=== PATIENT | female | born 1985 | race African-American/Black ===

== ENCOUNTER 2017-04-15 12:35 | Emergency (ER) | payer OTHER ==
[2017-04-15] MEDS ORDERED: LABETALOL 20 MG/4 ML DISP.SYRIN. IVP ONE (13:00)
[2017-04-15] MEDS ORDERED: HALOPERIDOL LACT 5 MG/ML VIAL. IM ONE (13:00)
[2017-04-15 13:20] LABS: BASO # 0.1 x10^3/uL (0.0-0.2); BASO % 1 % (0-3); EOS # 0.1 x10^3/uL (0.0-0.7); EOS % 0 % (0-3); HEMATOCRIT 20.8 % (36.0-47.0); LYMPH # 1.4 x10^3/uL (1.0-4.8); LYMPH % 10 % (24-48); MEAN CORPUSCULAR HEMOGLOBIN 32 pg (25-35); MEAN CORPUSCULAR HGB CONC 33 g/dL (31-37); MEAN CORPUSCULAR VOLUME 96 fL (79-100); MONO # 0.3 x10^3/uL (0.0-1.1); MONO % 2 % (0-9); NEUT % 87 % (31-73); PLATELET COUNT 239 x10^3/uL (140-400); RED BLOOD COUNT 2.17 x10^6/uL (3.50-5.40); RED CELL DISTRIBUTION WIDTH 14.6 % (11.5-14.5); WHITE BLOOD COUNT 13.8 x10^3/uL (4.0-11.0)
[2017-04-15 13:31] LABS: HEMOGLOBIN 6.8 g/dL (12.0-15.5)
[2017-04-15 13:42] LABS: ALBUMIN 2.7 g/dL (3.4-5.0); ALBUMIN/GLOBULIN RATIO 0.7 (1.0-1.7); CALCIUM 8.4 mg/dL (8.5-10.1); CREATININE 4.3 mg/dL (0.6-1.0); GFR 14.7; TOTAL BILIRUBIN 0.4 mg/dL (0.2-1.0); TOTAL PROTEIN 6.6 g/dL (6.4-8.2)
[2017-04-15 13:47] LABS: POTASSIUM 5.3 mmol/L (3.5-5.1)
[2017-04-15] MEDS ORDERED: hydrALAZINE 20 MG/ML VIAL. IV ONE (14:45)
--- NOTE | 2017-04-15 15:41 | PHYS DOC ---
Adult General Chief Complaint Chief Complaint: abdominal pain, vomiting HPI HPI Patient is a 31-year-old female with type 1 diabetes who presents by EMS from home with the complaint of abdominal pain and vomiting. Patient has a history of gastroparesis and states "it's my gastroparesis". Patient states she recently delivered a baby on 04/02 at [facility]. She had preeclampsia. She was released from the hospital about a week ago, her baby is still in the hospital. She is not pumping breast milk. Patient states she woke up this morning about 6 AM with abdominal pain and vomiting. She believes it is her gastroparesis. She does sometimes have flareups of gastroparesis just like this. She denies hematemesis. Patient has been taking insulin as prescribed. She has blood pressure medicine and took it but may have vomited it. She denies headache, complains of abdominal pain. Patient states that her swelling of her feet has been present since before she delivered her baby. PCP and specialists are at [facility]. Review of Systems Review of Systems Review of systems not able to be obtained because the patient is too uncomfortable to answer questions and her critical condition Current Medications Current Medications Current Medications Medications (Trade) Dose Ordered Sig/Rick Start Time Stop Time Status Last Admin Dose Admin Fentanyl Citrate (Fentanyl 2ml Vial) 100 mcg 1X ONCE 04/15/17 13:00 04/15/17 13:01 DC 04/15/17 13:12 100 MCG Haloperidol Lactate (Haldol) 2.5 mg 1X ONCE 04/15/17 13:00 04/15/17 13:01 DC 04/15/17 13:15 2.5 MG Hydralazine HCl (Apresoline) 10 mg 1X ONCE 04/15/17 14:45 04/15/17 14:46 DC 04/15/17 15:01 10 MG Labetalol HCl (Normodyne) 20 mg 1X ONCE 04/15/17 13:00 04/15/17 13:01 DC 04/15/17 13:17 20 MG Lorazepam (Ativan) 2 mg 1X ONCE 04/15/17 15:45 04/15/17 15:46 04/15/17 15:39 2 MG Magnesium Sulfate 50 ml @ 25 mls/hr 1X ONCE 04/15/17 15:45 04/15/17 17:44 04/15/17 15:39 25 MLS/HR Nicardipine HCl 50 mg/Sodium Chloride 270 ml @ 0 mls/hr CONT PRN 04/15/17 15:30 Allergies Allergies Allergies Coded Allergies Type Severity Reaction Last Updated Verified ketorolac Allergy Mild 04/15/17 Yes morphine Allergy Mild Unknown 04/15/17 Yes ondansetron Allergy Mild Unknown 04/15/17 Yes Physical Exam Physical Exam Constitutional: Obese female, having dry heaves, crying, moaning, holding her abdomen. Alert, answers questions briefly but appropriately. Blood pressure markedly elevated. HENT: Normocephalic, atraumatic, bilateral external ears normal, nose normal. [ ] Eyes: conjunctiva normal, no discharge. [] Neck: Normal range of motion, no stridor. [] Cardiovascular:Heart rate regular rhythm, no murmur [] Lungs & Thorax: Bilateral breath sounds clear to auscultation [] Abdomen: Obese, tender to palpation generalized, no focal tenderness, no rebound or guarding. Skin: Warm, dry, no erythema, no rash. [] Extremities: No tenderness, no cyanosis, no clubbing, ROM intact, puffy edema of both feet 2 plus Neurologic: Alert and oriented X 3, normal motor function, no focal deficits noted. [] Current Patient Data Vital Signs Vital Signs Date Time Temp Pulse Resp B/P (MAP) Pulse Ox O2 Delivery O2 Flow Rate FiO2 04/15/17 15:35 20 96 04/15/17 15:01 94 210/130 04/15/17 15:00 Room Air Lab Results Laboratory Tests Test 04/15/17 13:07 White Blood Count 13.8 x10^3/uL (4.0-11.0) H Red Blood Count 2.17 x10^6/uL (3.50-5.40) L Hemoglobin 6.8 g/dL (12.0-15.5) *L Hematocrit 20.8 % (36.0-47.0) L Mean Corpuscular Volume 96 fL (79-100) Mean Corpuscular Hemoglobin 32 pg (25-35) Mean Corpuscular Hemoglobin Concent 33 g/dL (31-37) Red Cell Distribution Width 14.6 % (11.5-14.5) H Platelet Count 239 x10^3/uL (140-400) Neutrophils (%) (Auto) 87 % (31-73) H Lymphocytes (%) (Auto) 10 % (24-48) L Monocytes (%) (Auto) 2 % (0-9) Eosinophils (%) (Auto) 0 % (0-3) Basophils (%) (Auto) 1 % (0-3) Neutrophils # (Auto) 12.0 x10^3uL (1.8-7.7) H Lymphocytes # (Auto) 1.4 x10^3/uL (1.0-4.8) Monocytes # (Auto) 0.3 x10^3/uL (0.0-1.1) Eosinophils # (Auto) 0.1 x10^3/uL (0.0-0.7) Basophils # (Auto) 0.1 x10^3/uL (0.0-0.2) Prothrombin Time 11.0 SEC (9.4-11.4) Prothrombin Time INR 1.1 (0.9-1.1) PTT 24 SEC (23-33) Sodium Level 142 mmol/L (136-145) Potassium Level 5.3 mmol/L (3.5-5.1) H Chloride Level 109 mmol/L (98-107) H Carbon Dioxide Level 18 mmol/L (21-32) L Anion Gap 15 (6-14) H Blood Urea Nitrogen 34 mg/dL (7-20) H Creatinine 4.3 mg/dL (0.6-1.0) H Estimated GFR (Cockcroft-Gault) 14.7 BUN/Creatinine Ratio 8 (6-20) Glucose Level 241 mg/dL (70-99) H Calcium Level 8.4 mg/dL (8.5-10.1) L Total Bilirubin 0.4 mg/dL (0.2-1.0) Aspartate Amino Transferase (AST) 42 U/L (15-37) H Alanine Aminotransferase (ALT) 27 U/L (14-59) Alkaline Phosphatase 111 U/L (46-116) Total Protein 6.6 g/dL (6.4-8.2) Albumin 2.7 g/dL (3.4-5.0) L Albumin/Globulin Ratio 0.7 (1.0-1.7) L Lipase 507 U/L (73-393) H EKG EKG [] Radiology/Procedures Radiology/Procedures [] Course & Med Decision Making Course & Med Decision Making Pertinent Labs and Imaging studies reviewed. (See chart for details) 31-year-old female, diabetes, with history of gastroparesis, presents with the complaint of acute onset of abdominal pain and vomiting this morning, states "it 's my gastroparesis", however patient gives a history of recently having preeclampsia prior to delivering her baby on 04/02. I'm concerned that she might continue to be preeclamptic with the symptom complex that she is presenting with. Her blood pressure is markedly elevated. Patient states her blood pressure was high before. Still, I am concerned about the possibility of preeclampsia. Labs present multiple abnormalities, see lab results. The patient was treated with IV pain and nausea medications as well as IV antihypertensives. IV labetalol, IV hydralazine, did not really make a dent in her blood pressure. I started an IV magnesium bolus of 2 g. The patient continued to cry and complain of abdominal pain, she seemed anxious and she was given a dose of IV Ativan 1 mg and she immediately fell asleep. Because the patient was hospitalized at for preeclampsia and her recent delivery, I called [facility] to discuss transfer. She was accepted for transfer. 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 Perea. EMS was called, transfer paperwork was completed. In the meantime, as the magnesium bolus was finishing, the patient was not getting much improvement in her blood pressure and a Nicardipine infusion was started. When EMS arrived, patient was sleeping shortly after Ativan administration. I woke the patient up and she woke up, made eye contact, she is nonfocal. She moved over from the ED cart onto the EMS cart with minimal assistance. She continues to complain of abdominal pain but appears much more comfortable than she did prior to Ativan. Patient's magnesium had finished and nicardipine infusion is ongoing during the patient's EMS transport. Although the patient was noted to be anemic, I did not believe this is an acute finding and will defer possible blood transfusion to . Critical care time 120 minutes including bedside evaluation and reevaluation, evaluation and treatment of preeclampsia with markedly elevated blood pressure, ordering multiple IV medications, interpreting labs with multiple lab abnormalities, documentation, writing orders, several phone calls with [facility] transfer, discussion with [facility] transfer triage nurse, transfer paperwork. [] Dragon Disclaimer Dragon Disclaimer This electronic medical record was generated, in whole or in part, using a voice recognition dictation system. Departure Departure: Impression: Primary Impression: Pre-eclampsia in period Additional Impressions: Elevated blood pressure reading Anemia Abdominal pain Vomiting Disposition: 02 XFER SHT-TRM HOSP Condition: GUARDED Referrals: NON,STAFF (PCP) Problem Qualifiers CHRIS PINZON MD Apr 15, 2017 15:41
[2017-04-15] MEDS ORDERED: MAGNESIUM SULFATE 2GM 50 ML IV ONE (15:45)
[2017-04-15] MEDS ORDERED: LORazepam 2 MG/ML VIAL IV ONE (15:45)
[2017-04-15 16:20] VITALS: BP 201/114
== END 2017-04-15 16:23 | disposition short-term general hospital (02) ==
LOC: ER 12:35
DX: O14.95 Unspecified pre-eclampsia, complicating the puerperium (principal); O90.81 Anemia of the puerperium; R11.10 Vomiting, unspecified; R10.84 Generalized abdominal pain; E10.9 Type 1 diabetes mellitus without complications; Z88.5 Allergy status to narcotic agent; Z88.8 Allergy status to other drugs, medicaments and biological substances
CPT/HCPCS: 36415; 80053; 83690; 85025; 85610; 85730; 96365; 96368; 96372; 96375; 96376; 99291; 99292; J0360; J1630; J2060; J3010; J3475; J3490; J7050

== ENCOUNTER 2017-11-26 20:34 | Emergency (ER) | payer OTHER ==
[~2017-11-26] VITALS: Ht 175.3 cm; Wt 64.0 kg
--- NOTE | 2017-11-26 21:50 | ED.ADGEN ---
Past History Past Medical History: Diabetes, Renal Failure, Other Past Surgical History: Cholecystectomy, Tubal ligation Alcohol Use: None Drug Use: None Adult General Chief Complaint Chief Complaint ".. I got bad gastroparesis... and I usually go to [facility] for everything... but I am vomiting and got bad pain.. here in middle (umbilicus.).. and on Rt. lower..... I ve had my gallbladder out.. " " I have diabetes..." HPI HPI Patient is a 32 year old female who presents with above hx and complaints of abd. pain, N/V and DM. 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) Review of Systems Review of Systems Constitutional: Denies fever or chills [] Eyes: Denies change in visual acuity, redness, or eye pain [] HENT: Denies nasal congestion or sore throat [] Respiratory: Denies cough or shortness of breath [] Cardiovascular: No additional information not addressed in HPI [] GI: Generalized abdominal pain, nausea, vomiting, denies bloody stools or diarrhea [] : Denies dysuria or hematuria [] Musculoskeletal: Denies back pain or joint pain [] Integument: Denies rash or skin lesions [] Neurologic: Denies headache, focal weakness or sensory changes [] Endocrine: Denies polyuria or polydipsia [] All other systems were reviewed and found to be within normal limits, except as documented in this note. Family History Family History Noncontributory Current Medications Current Medications Current Medications Medications (Trade) Dose Ordered Sig/Rick Start Time Stop Time Status Last Admin Dose Admin Ceftriaxone Sodium (Rocephin Im) 1 gm 1X ONCE 11/27/17 01:15 11/27/17 01:16 DC 11/27/17 03:17 1 GM Clonidine HCl (Catapres Tts-1) 1 patch ONCE ONCE 11/27/17 06:00 11/27/17 06:01 DC Clonidine HCl (Catapres Tts-2) 1 patch 1X ONCE 11/27/17 06:30 11/27/17 06:31 DC Clonidine HCl (Catapres) 0.2 mg 1X ONCE 11/27/17 07:30 11/27/17 07:31 DC 11/27/17 07:15 0.2 MG Diphenhydramine HCl (Benadryl) 50 mg 1X ONCE 11/26/17 23:00 11/26/17 23:08 DC 11/26/17 23:21 50 MG Famotidine (Pepcid Vial) 20 mg 1X ONCE 11/26/17 23:00 11/26/17 23:08 DC 11/26/17 23:21 20 MG Fentanyl Citrate (Fentanyl 2ml Vial) 50 mcg 1X ONCE 11/27/17 03:30 11/27/17 04:15 DC Haloperidol Lactate (Haldol) 2 mg 1X ONCE 11/27/17 03:30 11/27/17 04:15 DC 11/27/17 06:33 2 MG Insulin Human Regular (NovoLIN R) 12 unit 1X ONCE 11/27/17 08:00 11/27/17 08:01 DC Iohexol (Omnipaque 240 Mg/ml) 30 ml 1X ONCE 11/26/17 22:15 11/26/17 22:16 DC 11/27/17 03:33 30 ML Iohexol (Omnipaque 300 Mg/ml) 75 ml 1X ONCE 11/26/17 22:15 11/26/17 22:16 DC Lorazepam (Ativan) 2 mg 1X ONCE 11/27/17 02:15 11/27/17 02:16 DC 11/27/17 03:10 2 MG Metronidazole 100 ml @ 100 mls/hr Q8HRS 11/27/17 06:00 11/27/17 06:19 100 MLS/HR Promethazine HCl (Phenergan Im) 25 mg 1X ONCE 11/26/17 23:15 11/26/17 23:18 DC 11/26/17 23:22 25 MG Sodium Chloride 1,000 ml @ 1,000 mls/hr 1X ONCE 11/27/17 07:00 11/27/17 08:00 DC 11/27/17 07:00 1,000 MLS/HR Allergies Allergies Allergies Coded Allergies Type Severity Reaction Last Updated Verified ketorolac Allergy Mild 04/15/17 Yes morphine Allergy Mild Unknown 04/15/17 Yes ondansetron Allergy Mild Unknown 04/15/17 Yes Physical Exam Physical Exam Constitutional: in acute distress, non-toxic appearance. []Active dry heaving. HENT: Normocephalic, atraumatic, bilateral external ears normal, oropharynx dry no oral exudates, nose normal. [] Eyes: PERRLA, EOMI, conjunctiva normal, no discharge. [] Neck: Normal range of motion, no tenderness, supple, no stridor. [] Cardiovascular: Tachycardia Heart rate regular rhythm, no murmur [] Lungs & Thorax: Bilateral breath sounds clear to auscultation [] Abdomen: Bowel sounds decreased, soft, generalized tenderness, rebound to right lower quadrant no masses, no pulsatile masses. Distended. Old surgery scar. Skin: Warm, dry, no erythema, no rash. [] Back: No tenderness, no CVA tenderness. [] Extremities: No tenderness, no cyanosis, no clubbing, ROM intact, no edema. [] Neurologic: Alert and oriented X 3, normal motor function, normal sensory function, no focal deficits noted. [] Psychologic: Affect anxious, judgement normal, mood normal. [] Current Patient Data Vital Signs Vital Signs Date Time Temp Pulse Resp B/P (MAP) Pulse Ox O2 Delivery O2 Flow Rate FiO2 11/27/17 07:15 93 220/129 11/27/17 06:25 18 98 Room Air 11/26/17 20:59 98.3 Lab Results Laboratory Tests Test 11/26/17 23:10 11/26/17 23:46 11/27/17 01:27 11/27/17 04:26 White Blood Count 12.0 x10^3/uL (4.0-11.0) H Red Blood Count 4.28 x10^6/uL (3.50-5.40) Hemoglobin 12.3 g/dL (12.0-15.5) Hematocrit 36.2 % (36.0-47.0) Mean Corpuscular Volume 85 fL (79-100) Mean Corpuscular Hemoglobin 29 pg (25-35) Mean Corpuscular Hemoglobin Concent 34 g/dL (31-37) Red Cell Distribution Width 12.8 % (11.5-14.5) Platelet Count 291 x10^3/uL (140-400) Neutrophils (%) (Auto) 71 % (31-73) Lymphocytes (%) (Auto) 22 % (24-48) L Monocytes (%) (Auto) 6 % (0-9) Eosinophils (%) (Auto) 1 % (0-3) Basophils (%) (Auto) 1 % (0-3) Neutrophils # (Auto) 8.5 x10^3uL (1.8-7.7) H Lymphocytes # (Auto) 2.6 x10^3/uL (1.0-4.8) Monocytes # (Auto) 0.8 x10^3/uL (0.0-1.1) Eosinophils # (Auto) 0.1 x10^3/uL (0.0-0.7) Basophils # (Auto) 0.1 x10^3/uL (0.0-0.2) Urine Collection Type Unknown Urine Color Yellow Urine Clarity Clear Urine pH 5.5 Urine Specific [place] 1.015 Urine Protein >100 mg/dl (NEG-TRACE) Urine Glucose (UA) >=1000 mg/dL (NEG) Urine Ketones (Stick) Trace mg/dL (NEG) Urine Blood Mod (NEG) Urine Nitrite Neg (NEG) Urine Bilirubin Neg (NEG) Urine Urobilinogen Dipstick 0.2 mg/dL (0.2 mg/dL) Urine Leukocyte Esterase Neg (NEG) Urine RBC 0 /HPF (0-2) Urine WBC Occ /HPF (0-4) Urine Squamous Epithelial Cells Occ /LPF Urine Bacteria 0 /HPF (0-FEW) Maternal Serum HCG Beta Subunit < 1 mIU/mL (0-6) Sodium Level 132 mmol/L (136-145) L Potassium Level 3.8 mmol/L (3.5-5.1) Chloride Level 97 mmol/L (98-107) L Carbon Dioxide Level 22 mmol/L (21-32) Anion Gap 13 (6-14) Blood Urea Nitrogen 20 mg/dL (7-20) Creatinine 2.9 mg/dL (0.6-1.0) H Estimated GFR (Cockcroft-Gault) 23.1 BUN/Creatinine Ratio 7 (6-20) Glucose Level 440 mg/dL (70-99) H Calcium Level 9.6 mg/dL (8.5-10.1) Total Bilirubin 0.4 mg/dL (0.2-1.0) Aspartate Amino Transferase (AST) 21 U/L (15-37) Alanine Aminotransferase (ALT) 15 U/L (14-59) Alkaline Phosphatase 158 U/L (46-116) H Troponin I Quantitative 0.038 ng/mL (0-0.055) Total Protein 8.1 g/dL (6.4-8.2) Albumin 3.3 g/dL (3.4-5.0) L Albumin/Globulin Ratio 0.7 (1.0-1.7) L Amylase Level 91 U/L (25-115) Lipase 301 U/L (73-393) POC Venous pH 7.32 (7.32-7.42) POC Venous pCO2 38 mmHg (41-51) L POC Venous pO2 37 mmHg (20-40) Venous Blood HCO3 19 mmol/L (24-28) L POC Venous O2 Saturation (Charu) 66 % POC FiO2 21 Lactic Acid Level 1.1 mmol/L (0.4-2.0) Test 11/27/17 05:19 11/27/17 07:18 Glucose (Fingerstick) 551 mg/dL (70-99) *H 593 mg/dL (70-99) *H EKG EKG [] Radiology/Procedures Radiology/Procedures My interpretation of chest x-ray shows no acute cardiopulmonary findings. No free air in the diaphragm. Adequate placement of central line left subclavian. No pneumothorax. CT of abdomen shows no acute surgical processes. See formal report when available.[] Course & Med Decision Making Course & Med Decision Making Pertinent Labs and Imaging studies reviewed. (See chart for details) Discussed transfer to - Transfer team at [id number] Pt. to be transfer to [place] [id number] Bed 1, Dr. Finn Note - Glucose reported out at 150 range on recheck however at transfer time- = 593. [] Final Impression Final Impression 1. Abd. Pain- rebound to Rt. lower quadrant 2. Nausea and Vomiting 3. Hx. of Gastroparesis 4. DM[]- 440- ( repeat after fluids 150), recheck before transfer glu = 593 5. Renal Failure - Creat 2,9 6. Elevated Alk. Phos. 7. Leukocytosis 8. Constipation 9. Hyponatremia 10. Accelerated HTN- Dragon Disclaimer Dragon Disclaimer This electronic medical record was generated, in whole or in part, using a voice recognition dictation system. KAILEY COLUNGA MD Nov 26, 2017 21:50
[2017-11-26] MEDS ORDERED: IOHEXOL 240 MG/ML 50ML VIAL. PO ONE (22:15)
[2017-11-26] MEDS ORDERED: IOHEXOL 300 MG/ML 75 ML VIAL. IV ONE (22:15)
[2017-11-26] MEDS ORDERED: IV NORMAL SALINE 1,000ML 1,000 ML IV ONE (23:00)
[2017-11-26] MEDS ORDERED: diphenhydrAMINE 50 MG/ML VIAL IVP ONE (23:00)
[2017-11-26] MEDS ORDERED: FAMOTIDINE 20 MG/2 ML VIAL IVP ONE (23:00)
[2017-11-26] MEDS ORDERED: PROMETHAZINE IM 25 MG/ML VIAL IM ONE (23:15)
[2017-11-26] MEDS ORDERED: PROMETHAZINE 25 MG/ML VIAL IV ONE (23:17)
[2017-11-26 23:24] LABS: BASO # 0.1 x10^3/uL (0.0-0.2); BASO % 1 % (0-3); EOS # 0.1 x10^3/uL (0.0-0.7); EOS % 1 % (0-3); HEMATOCRIT 36.2 % (36.0-47.0); HEMOGLOBIN 12.3 g/dL (12.0-15.5); LYMPH # 2.6 x10^3/uL (1.0-4.8); LYMPH % 22 % (24-48); MEAN CORPUSCULAR HEMOGLOBIN 29 pg (25-35); MEAN CORPUSCULAR HGB CONC 34 g/dL (31-37); MEAN CORPUSCULAR VOLUME 85 fL (79-100); MONO # 0.8 x10^3/uL (0.0-1.1); MONO % 6 % (0-9); NEUT # 8.5 x10^3uL (1.8-7.7); NEUT % 71 % (31-73); PLATELET COUNT 291 x10^3/uL (140-400); RED BLOOD COUNT 4.28 x10^6/uL (3.50-5.40); RED CELL DISTRIBUTION WIDTH 12.8 % (11.5-14.5)
[2017-11-27 00:33] LABS: CLARITY,URINE CLEAR; COLOR,URINE YELLOW
[2017-11-27 00:34] LABS: BACTERIA,URINE 0 /HPF (0-FEW); BILIRUBIN,URINE NEG (NEG); GLUCOSE,URINE >=1000 mg/dL (NEG); NITRITE,URINE NEG (NEG); RBC,URINE 0 /HPF (0-2); SQUAMOUS EPITHELIAL CELL,UR OCC /LPF; UROBILINOGEN,URINE 0.2 mg/dL (0.2 mg/dL); WBC,URINE OCC /HPF (0-4)
[2017-11-27] MEDS ORDERED: cefTRIAXone IM 1 GM VIAL IM ONE (01:15)
--- NOTE | 2017-11-27 02:02 | RAD ---
PA chest and AP upright supine abdomen x-rays HISTORY: Severe abdominal pain, nausea and vomiting. FINDINGS: Heart and mediastinum are unremarkable. No pulmonary opacities or pleural effusions. No pneumoperitoneum. Cholecystectomy clips. Mild volume of stool. No dilated small bowel loops or abnormal fluid levels to suggest bowel obstruction. Bones are unremarkable. IMPRESSION: No acute process in the chest. No evidence of bowel obstruction. Electronically signed by: Alex Ramon MD (11/27/2017 1:58 AM) [facility]
[2017-11-27] MEDS ORDERED: LORazepam 2 MG/ML VIAL IV ONE (02:15)
[2017-11-27 02:36] LABS: ALBUMIN 3.3 g/dL (3.4-5.0); ALBUMIN/GLOBULIN RATIO 0.7 (1.0-1.7); CALCIUM 9.6 mg/dL (8.5-10.1); CREATININE 2.9 mg/dL (0.6-1.0); GFR 23.1; POTASSIUM 3.8 mmol/L (3.5-5.1); TOTAL BILIRUBIN 0.4 mg/dL (0.2-1.0); TOTAL PROTEIN 8.1 g/dL (6.4-8.2)
[2017-11-27] MEDS ORDERED: LIDOCAINE 2% 20 ML VIAL. ONE (02:59)
[2017-11-27] MEDS ORDERED: HALOPERIDOL LACT 5 MG/ML VIAL. IVP ONE (03:30)
--- NOTE | 2017-11-27 04:09 | RAD ---
CT abdomen and pelvis without contrast TECHNIQUE: Helical multiplanar reconstructed noncontrast CT imaging of the abdomen and pelvis was acquired. HISTORY: Severe abdominal pain, nausea and vomiting. COMPARISON: CT abdomen and pelvis December 04, 2010. Abdomen findings: 2 cm left adrenal adenoma density -3 units. Right adrenal, kidneys, spleen, liver and pancreas are unremarkable. Aortoiliac artery calcified plaque. Mild reflux of oral contrast of the distal esophagus. Appendix is negative. No obstruction or inflammatory changes in GI tract. No abdominal fluid. Lung bases and bones unremarkable. Pelvis findings: Bladder, uterus, ovaries, rectum and bones are unremarkable. No pelvic fluid. Density at the right lateral hip soft tissues perhaps related to recent injection or early heterotopic ossification. IMPRESSION: No acute process. Appendix is negative. Exposure: One or more of the following individualized dose reduction techniques were utilized for this examination: 1. Automated exposure control 2. Adjustment of the mA and/or kV according to patient size 3. Use of iterative reconstruction technique Electronically signed by: Alex Ramon MD (11/27/2017 4:05 AM) [facility]
--- NOTE | 2017-11-27 04:57 | RAD ---
AP chest x-ray HISTORY: Status post central line. FINDINGS: Left subclavian central venous catheter tip SVC. Heart size normal. Mediastinal silhouette is normal. No pneumothorax, pulmonary opacities or pleural effusions. Bones are unremarkable. IMPRESSION: Left subclavian central venous catheter tip at the SVC. No pneumothorax. No acute process. Electronically signed by: Alex Ramon MD (11/27/2017 4:54 AM) [facility]
[2017-11-27] MEDS ORDERED: cloNIDine HCL 0.1 MG TABLET PO ONE ×2 (05:30→07:30)
[2017-11-27] MEDS ORDERED: cloNIDine TTS-1 1 PATCH PATCH TD ONE (06:00)
[2017-11-27] MEDS ORDERED: cloNIDine TTS-2 1 PATCH PATCH TD ONE ×2 (06:12→06:30)
[2017-11-27] MEDS ORDERED: IV NORMAL SALINE 1,000ML 1,000 ML IV ONE (07:00)
[2017-11-27 07:15] VITALS: BP 206/124
[2017-11-27] MEDS ORDERED: INSULIN REGULAR 100 UNIT/ML 10ML VIAL. IV ONE (08:00)
== END 2017-11-27 07:30 | disposition short-term general hospital (02) ==
LOC: ER 20:34
DX: R11.2 Nausea with vomiting, unspecified (principal); K59.00 Constipation, unspecified; D72.829 Elevated white blood cell count, unspecified; E11.22 Type 2 diabetes mellitus with diabetic chronic kidney disease; R74.8 Abnormal levels of other serum enzymes; E11.43 Type 2 diabetes mellitus with diabetic autonomic (poly)neuropathy; K31.84 Gastroparesis; E87.1 Hypo-osmolality and hyponatremia; I10 Essential (primary) hypertension; Z90.49 Acquired absence of other specified parts of digestive tract; Z98.51 Tubal ligation status; Z88.5 Allergy status to narcotic agent; Z88.8 Allergy status to other drugs, medicaments and biological substances
CPT/HCPCS: 36415; 71045; 74022; 74176; 80053; 81001; 82150; 82803; 82947; 83605; 83690; 84484; 84702; 85025; 96361; 96365; 96372; 96374; 96375; 99285; J0696; J1200; J1630; J1815; J2060; J2550; J3010; J3490; Q9966; S0028; J7030

== ENCOUNTER 2017-12-01 12:00 | Inpatient (IN) | payer OTHER ==
[2017-12-01] VITALS (7 sets, daily range): BP systolic 139–213; BP diastolic 88–136
[~2017-12-01] VITALS: Ht 167.6 cm; Wt 65.3 kg
[2017-12-01] MEDS ORDERED: HALOPERIDOL LACT 5 MG/ML VIAL. IVP ONE (13:00)
[2017-12-01] MEDS ORDERED: IV NORMAL SALINE 1,000ML 1,000 ML IV SCH (13:00)
[2017-12-01] MEDS ORDERED: PROCHLORPERAZINE 10 MG/2 ML VIAL. IV ONE ×2 (13:00)
[2017-12-01 13:09] LABS: BASO # 0.3 x10^3/uL (0.0-0.2); BASO % 2 % (0-3); EOS # 0.1 x10^3/uL (0.0-0.7); EOS % 1 % (0-3); HEMATOCRIT 36.3 % (36.0-47.0); HEMOGLOBIN 12.1 g/dL (12.0-15.5); LYMPH # 2.6 x10^3/uL (1.0-4.8); LYMPH % 19 % (24-48); MEAN CORPUSCULAR HEMOGLOBIN 29 pg (25-35); MEAN CORPUSCULAR HGB CONC 34 g/dL (31-37); MEAN CORPUSCULAR VOLUME 86 fL (79-100); MONO # 0.4 x10^3/uL (0.0-1.1); MONO % 3 % (0-9); NEUT # 10.9 x10^3uL (1.8-7.7); NEUT % 76 % (31-73); RED BLOOD COUNT 4.21 x10^6/uL (3.50-5.40); RED CELL DISTRIBUTION WIDTH 13.3 % (11.5-14.5); WHITE BLOOD COUNT 14.3 x10^3/uL (4.0-11.0)
[2017-12-01 13:14] LABS: PLT ESTIMATE ADEQUATE (ADEQUATE)
[2017-12-01 13:15] LABS: POLYCHROMASIA SLIGHT
[2017-12-01 13:17] LABS: TOXIC VACUOLATION SLIGHT
[2017-12-01 13:47] LABS: AMPHETAMINE/METHAMPHETAMINE NEG (NEG); BARBITURATES NEG (NEG); BENZODIAZEPINES NEG (NEG); CANNABINOIDS POS (NEG); COCAINE NEG (NEG); METHADONE NEG (NEG); OPIATES NEG (NEG); PHENCYCLIDINE NEG (NEG)
[2017-12-01 13:54] LABS: BILIRUBIN,URINE NEG (NEG); CLARITY,URINE HAZY; COLOR,URINE YELLOW; GLUCOSE,URINE >=1000 mg/dL (NEG); NITRITE,URINE NEG (NEG); UROBILINOGEN,URINE 0.2 mg/dL (0.2 mg/dL)
[2017-12-01 13:55] LABS: BACTERIA,URINE FEW /HPF (0-FEW); SQUAMOUS EPITHELIAL CELL,UR FEW /LPF
[2017-12-01] MEDS ORDERED: HYDROmorphone PF 1 MG/ML DISP.SYRIN IV ONE (15:20)
[2017-12-01 15:51] LABS: ALBUMIN 3.2 g/dL (3.4-5.0); ALBUMIN/GLOBULIN RATIO 0.7 (1.0-1.7); CALCIUM 9.5 mg/dL (8.5-10.1); CREATININE 2.2 mg/dL (0.6-1.0); GFR 31.7; POTASSIUM 3.6 mmol/L (3.5-5.1); TOTAL BILIRUBIN 0.4 mg/dL (0.2-1.0); TOTAL PROTEIN 7.7 g/dL (6.4-8.2)
--- NOTE | 2017-12-01 16:26 | PHYS DOC ---
Past History Past Medical History: Diabetes, Renal Failure, Other Past Surgical History: Cholecystectomy, Tubal ligation Alcohol Use: None Drug Use: None Adult General Chief Complaint Chief Complaint: NAUSEA/VOMITING/DIARRHEA HPI HPI Patient is a 32-year-old female who presents for evaluation of generalized abdominal pain, nausea and vomiting. She states that she is a history of gastroparesis and that this pain feels similar to previous pain. She says that she is having difficulty keeping things down and keeps vomiting. He was recently admitted to for gastroparesis. She is been noncompliant with her diabetic and hypertensive medications. She is alert and oriented 4, anxious, dry heaving, and appears uncomfortable. She states that she has been through this multiple times previously. Review of Systems Review of Systems Constitutional: Denies fever or chills [] Eyes: Denies change in visual acuity, redness, or eye pain [] HENT: Denies nasal congestion or sore throat [] Respiratory: Denies cough or shortness of breath [] Cardiovascular: No additional information not addressed in HPI [] GI: Denies bloody stools or diarrhea [] +abd pain, n/v : Denies dysuria or hematuria [] Musculoskeletal: Denies back pain or joint pain [] Integument: Denies rash or skin lesions [] Neurologic: Denies headache, focal weakness or sensory changes [] Endocrine: Denies polyuria or polydipsia [] All other systems were reviewed and found to be within normal limits, except as documented in this note. Current Medications Current Medications Current Medications Medications (Trade) Dose Ordered Sig/Rick Start Time Stop Time Status Last Admin Dose Admin Haloperidol Lactate (Haldol) 5 mg 1X ONCE 12/01/17 13:00 12/01/17 13:01 DC 12/01/17 13:04 5 MG Hydromorphone HCl (Dilaudid) 1 mg 1X ONCE 12/01/17 15:20 12/01/17 15:21 DC 12/01/17 15:15 1 MG Insulin Human Regular (NovoLIN R) 12 unit 1X ONCE 12/01/17 16:00 12/01/17 16:01 UNV Labetalol HCl (Normodyne) 20 mg 1X ONCE 12/01/17 16:00 12/01/17 16:01 UNV Prochlorperazine Edisylate (Compazine) 10 mg 1X ONCE 12/01/17 13:00 12/01/17 13:01 DC Sodium Chloride 1,000 ml @ 1,000 mls/hr Q1H 12/01/17 13:00 12/01/17 13:59 DC 12/01/17 13:01 1,000 MLS/HR Allergies Allergies Allergies Coded Allergies Type Severity Reaction Last Updated Verified ketorolac Allergy Mild 04/15/17 Yes morphine Allergy Mild Unknown 04/15/17 Yes ondansetron Allergy Mild Unknown 04/15/17 Yes Physical Exam Physical Exam Constitutional: Well developed, well nourished, no acute distress, non-toxic appearance. [] HENT: Normocephalic, atraumatic, bilateral external ears normal, oropharynx moist, no oral exudates, nose normal. [] Eyes: PERRLA, EOMI, conjunctiva normal, no discharge. [] Neck: Normal range of motion, no tenderness, supple, no stridor. [] Cardiovascular:Heart rate regular rhythm, no murmur [] Lungs & Thorax: Bilateral breath sounds clear to auscultation [] Abdomen: Bowel sounds normal, soft, no tenderness, no masses, no pulsatile masses. [] +epigastric ttp, actively vomiting, abdomen soft, no rigidity, no distension Skin: Warm, dry, no erythema, no rash. [] Back: No tenderness, no CVA tenderness. [] Extremities: No tenderness, no cyanosis, no clubbing, ROM intact, no edema. [] Neurologic: Alert and oriented X 3, normal motor function, normal sensory function, no focal deficits noted. [] Psychologic: Affect normal, judgement normal, mood normal. [] Current Patient Data Vital Signs Vital Signs Date Time Temp Pulse Resp B/P (MAP) Pulse Ox O2 Delivery O2 Flow Rate FiO2 12/01/17 15:15 16 Room Air Lab Results Laboratory Tests Test 12/01/17 12:35 12/01/17 13:25 12/01/17 15:18 White Blood Count 14.3 x10^3/uL (4.0-11.0) H Red Blood Count 4.21 x10^6/uL (3.50-5.40) Hemoglobin 12.1 g/dL (12.0-15.5) Hematocrit 36.3 % (36.0-47.0) Mean Corpuscular Volume 86 fL (79-100) Mean Corpuscular Hemoglobin 29 pg (25-35) Mean Corpuscular Hemoglobin Concent 34 g/dL (31-37) Red Cell Distribution Width 13.3 % (11.5-14.5) Platelet Count x10^3/uL (140-400) Neutrophils (%) (Auto) 76 % (31-73) H Lymphocytes (%) (Auto) 19 % (24-48) L Monocytes (%) (Auto) 3 % (0-9) Eosinophils (%) (Auto) 1 % (0-3) Basophils (%) (Auto) 2 % (0-3) Neutrophils # (Auto) 10.9 x10^3uL (1.8-7.7) H Lymphocytes # (Auto) 2.6 x10^3/uL (1.0-4.8) Monocytes # (Auto) 0.4 x10^3/uL (0.0-1.1) Eosinophils # (Auto) 0.1 x10^3/uL (0.0-0.7) Basophils # (Auto) 0.3 x10^3/uL (0.0-0.2) H Toxic Vacuolation Slight Platelet Estimate Adequate (ADEQUATE) Large Platelets Occ Polychromasia Slight Urine Collection Type Unknown Urine Color Yellow Urine Clarity Hazy Urine pH 7.0 Urine Specific Shickley 1.015 Urine Protein >100 mg/dl (NEG-TRACE) Urine Glucose (UA) >=1000 mg/dL (NEG) Urine Ketones (Stick) Neg mg/dL (NEG) Urine Blood Mod (NEG) Urine Nitrite Neg (NEG) Urine Bilirubin Neg (NEG) Urine Urobilinogen Dipstick 0.2 mg/dL (0.2 mg/dL) Urine Leukocyte Esterase Neg (NEG) Urine RBC 6-10 /HPF (0-2) Urine WBC 1-4 /HPF (0-4) Urine Squamous Epithelial Cells Few /LPF Urine Transitional Epithelial Cells Few /LPF Urine Bacteria Few /HPF (0-FEW) Urine Opiates Screen Neg (NEG) Urine Methadone Screen Neg (NEG) Urine Barbiturates Neg (NEG) Urine Phencyclidine Screen Neg (NEG) Urine Amphetamine/Methamphetamine Neg (NEG) Urine Benzodiazepines Screen Neg (NEG) Urine Cocaine Screen Neg (NEG) Urine Cannabinoids Screen Pos (NEG) Urine Ethyl Alcohol Neg (NEG) Sodium Level 136 mmol/L (136-145) Potassium Level 3.6 mmol/L (3.5-5.1) Chloride Level 102 mmol/L (98-107) Carbon Dioxide Level 25 mmol/L (21-32) Anion Gap 9 (6-14) Blood Urea Nitrogen 17 mg/dL (7-20) Creatinine 2.2 mg/dL (0.6-1.0) H Estimated GFR (Cockcroft-Gault) 31.7 BUN/Creatinine Ratio 8 (6-20) Glucose Level 508 mg/dL (70-99) *H Calcium Level 9.5 mg/dL (8.5-10.1) Total Bilirubin 0.4 mg/dL (0.2-1.0) Aspartate Amino Transferase (AST) 15 U/L (15-37) Alanine Aminotransferase (ALT) 16 U/L (14-59) Alkaline Phosphatase 148 U/L (46-116) H Total Protein 7.7 g/dL (6.4-8.2) Albumin 3.2 g/dL (3.4-5.0) L Albumin/Globulin Ratio 0.7 (1.0-1.7) L Lipase 625 U/L (73-393) H EKG EKG [] Radiology/Procedures Radiology/Procedures [] Course & Med Decision Making Course & Med Decision Making Laboratory Tests Test 12/01/17 12:35 12/01/17 13:25 12/01/17 15:18 White Blood Count 14.3 x10^3/uL Red Blood Count 4.21 x10^6/uL Hemoglobin 12.1 g/dL Hematocrit 36.3 % Mean Corpuscular Volume 86 fL Mean Corpuscular Hemoglobin 29 pg Mean Corpuscular Hemoglobin Concent 34 g/dL Red Cell Distribution Width 13.3 % Platelet Count x10^3/uL Neutrophils (%) (Auto) 76 % Lymphocytes (%) (Auto) 19 % Monocytes (%) (Auto) 3 % Eosinophils (%) (Auto) 1 % Basophils (%) (Auto) 2 % Neutrophils # (Auto) 10.9 x10^3uL Lymphocytes # (Auto) 2.6 x10^3/uL Monocytes # (Auto) 0.4 x10^3/uL Eosinophils # (Auto) 0.1 x10^3/uL Basophils # (Auto) 0.3 x10^3/uL Toxic Vacuolation Slight Platelet Estimate Adequate Large Platelets Occ Polychromasia Slight Urine Collection Type Unknown Urine Color Yellow Urine Clarity Hazy Urine pH 7.0 Urine Specific Shickley 1.015 Urine Protein >100 mg/dl Urine Glucose (UA) >=1000 mg/dL Urine Ketones (Stick) Neg mg/dL Urine Blood Mod Urine Nitrite Neg Urine Bilirubin Neg Urine Urobilinogen Dipstick 0.2 mg/dL Urine Leukocyte Esterase Neg Urine RBC 6-10 /HPF Urine WBC 1-4 /HPF Urine Squamous Epithelial Cells Few /LPF Urine Transitional Epithelial Cells Few /LPF Urine Bacteria Few /HPF Urine Opiates Screen Neg Urine Methadone Screen Neg Urine Barbiturates Neg Urine Phencyclidine Screen Neg Urine Amphetamine/Methamphetamine Neg Urine Benzodiazepines Screen Neg Urine Cocaine Screen Neg Urine Cannabinoids Screen Pos Urine Ethyl Alcohol Neg Sodium Level 136 mmol/L Potassium Level 3.6 mmol/L Chloride Level 102 mmol/L Carbon Dioxide Level 25 mmol/L Anion Gap 9 Blood Urea Nitrogen 17 mg/dL Creatinine 2.2 mg/dL Estimated GFR (Cockcroft-Gault) 31.7 BUN/Creatinine Ratio 8 Glucose Level 508 mg/dL Calcium Level 9.5 mg/dL Total Bilirubin 0.4 mg/dL Aspartate Amino Transf (AST/SGOT) 15 U/L Alanine Aminotransferase (ALT/SGPT) 16 U/L Alkaline Phosphatase 148 U/L Total Protein 7.7 g/dL Albumin 3.2 g/dL Albumin/Globulin Ratio 0.7 Lipase 625 U/L Current Medications Medications (Trade) Dose Ordered Sig/Rick Route PRN Reason Start Time Stop Time Status Last Admin Dose Admin Sodium Chloride 1,000 ml @ 1,000 mls/hr Q1H IV 12/01/17 13:00 12/01/17 13:59 DC 12/01/17 13:01 1,000 MLS/HR Prochlorperazine Edisylate (Compazine) 10 mg 1X ONCE IV 12/01/17 13:00 12/01/17 13:01 DC 12/01/17 13:03 10 MG Haloperidol Lactate (Haldol) 5 mg 1X ONCE IVP 12/01/17 13:00 12/01/17 13:01 DC 12/01/17 13:04 5 MG Prochlorperazine Edisylate (Compazine) 10 mg 1X ONCE IV 12/01/17 13:00 12/01/17 13:01 DC Hydromorphone HCl (Dilaudid) 1 mg 1X ONCE IV 12/01/17 15:20 12/01/17 15:21 DC 12/01/17 15:15 1 MG Insulin Human Regular (NovoLIN R) 12 unit 1X ONCE IV 12/01/17 16:00 12/01/17 16:01 UNV Labetalol HCl (Normodyne) 20 mg 1X ONCE IVP 12/01/17 16:00 12/01/17 16:01 UNV Pertinent Labs and Imaging studies reviewed. (See chart for details) @1620 - No evidence of DKA at this time. However, the patient's hypertension and diabetes are uncontrolled and she will need to be admitted and closely observed in the ICU. [facility]'s patient Dr. Quiroz accepts the ICU admission. Dragon Disclaimer Dragon Disclaimer This electronic medical record was generated, in whole or in part, using a voice recognition dictation system. Critical Care Time Critical care time was 40 minutes exclusive of procedures. --> management of hypertensive urgency and hyperglycemia, evaluating labs, speaking with claims consultant Departure Departure: Impression: Primary Impression: Hypertensive urgency Additional Impressions: Hyperglycemia Dehydration Acute pancreatitis Nausea and vomiting Gastroparesis Disposition: ADMITTED INPATIENT Admitting Physician: Agnes Quiroz Condition: GUARDED Referrals: CHARO CROOK MD (PCP) Problem Qualifiers REY SALINAS DO Dec 01, 2017 16:25
[2017-12-01] MEDS ORDERED: INSULIN REGULAR 100 UNIT/ML 10ML VIAL. IV ONE (16:30)
[2017-12-01] MEDS ORDERED: LABETALOL 20 MG/4 ML DISP.SYRIN. IVP ONE (16:30)
[2017-12-01] MEDS: IV NORMAL SALINE 1,000ML 1,000 ML IV SCH ×3 (17:00→19:46)
[2017-12-01] MEDS ORDERED: LABETALOL 100 MG/20 ML VIAL. IV ONE (17:00)
[2017-12-01] MEDS ORDERED: DEXTROSE 50% 25 GM / 50ML DISP.SYRIN. IV PRN (17:30)
[2017-12-01] MEDS ORDERED: INSULIN REGULAR VIAL 150 UNIT in 0.9 % SODIUM CHLORIDE 150ML 150 ML IV PRN (17:30)
[2017-12-01] MEDS ORDERED: PROCHLORPERAZINE 10 MG/2 ML VIAL. IM PRN (17:30)
[2017-12-01] MEDS ORDERED: POTASSIUM CHLORIDE 20MEQ 100 ML IV PRN (17:45)
[2017-12-01] MEDS: HYDROmorphone PF 1 MG/ML DISP.SYRIN IV PRN ×3 (18:06→22:18)
[2017-12-01] MEDS: PROCHLORPERAZINE 10 MG/2 ML VIAL. IV PRN (18:07)
[2017-12-01] MEDS ORDERED: IV DEXTROSE 5 %-0.45 % NACL 1,000 ML IV SCH (21:15)
[2017-12-01] MEDS: LABETALOL 100 MG/20 ML VIAL. IV PRN (21:30)
[2017-12-02] VITALS (17 sets, daily range): BP systolic 134–202; BP diastolic 79–121
[2017-12-02] MEDS: HYDROmorphone PF 1 MG/ML DISP.SYRIN IV PRN ×4 (00:30→20:48)
[2017-12-02] MEDS: hydrALAZINE 20 MG/ML VIAL. IV PRN ×3 (01:50→17:31)
[2017-12-02] MEDS: PROCHLORPERAZINE 10 MG/2 ML VIAL. IV PRN ×3 (02:45→18:29)
[2017-12-02 06:38] LABS: CALCIUM 8.8 mg/dL (8.5-10.1); CREATININE 1.9 mg/dL (0.6-1.0); GFR 37.6; POTASSIUM 3.4 mmol/L (3.5-5.1)
[2017-12-02 06:39] LABS: BASO # 0.1 x10^3/uL (0.0-0.2); BASO % 1 % (0-3); EOS # 0.1 x10^3/uL (0.0-0.7); EOS % 1 % (0-3); HEMATOCRIT 29.9 % (36.0-47.0); HEMOGLOBIN 10.1 g/dL (12.0-15.5); LYMPH # 2.3 x10^3/uL (1.0-4.8); LYMPH % 18 % (24-48); MEAN CORPUSCULAR HEMOGLOBIN 29 pg (25-35); MEAN CORPUSCULAR HGB CONC 34 g/dL (31-37); MEAN CORPUSCULAR VOLUME 86 fL (79-100); MONO # 0.8 x10^3/uL (0.0-1.1); MONO % 6 % (0-9); NEUT # 9.8 x10^3uL (1.8-7.7); NEUT % 75 % (31-73); PLATELET COUNT 256 x10^3/uL (140-400); RED BLOOD COUNT 3.48 x10^6/uL (3.50-5.40); RED CELL DISTRIBUTION WIDTH 13.3 % (11.5-14.5); WHITE BLOOD COUNT 13.1 x10^3/uL (4.0-11.0)
[2017-12-02] MEDS ORDERED: POTASSIUM CHLORIDE 20 MEQ TABLET.ER. PO ONE (07:30)
[2017-12-02] MEDS ORDERED: IV NORMAL SALINE 1,000ML 1,000 ML IV ONE (07:30)
[2017-12-02] MEDS: IV NORMAL SALINE 1,000ML 1,000 ML IV SCH ×2 (07:37→14:11)
[2017-12-02] MEDS: INSULIN LISPRO 300 UNITS/3 ML INSULN.PEN. SQ PRN ×2 (07:39→09:32)
[2017-12-02] MEDS: LABETALOL 100 MG/20 ML VIAL. IV PRN (09:27)
[2017-12-02] MEDS ORDERED: cloNIDine TTS-3 1 PATCH PATCH TD SCH (10:30)
--- NOTE | 2017-12-02 10:48 | HP ---
ADMIT DATE: 12/02/2017 HISTORY OF PRESENT ILLNESS: The patient is a 32-year-old -[place] female patient, who came to the Emergency Room with complaint of generalized abdominal pain, nausea and vomiting, stated that has history of gastroparesis diagnosed at [facility] when she was 24 years old. She was diagnosed with diabetes when she was 18 years old and ever since been on insulin. She apparently was admitted recently at for gastroparesis and it seems that looking at her medication history she seemed to be noncompliant and she has a huge number of antihypertensive medication, but apparently she is not taking any of them. She was evaluated in the Emergency Room and was found to have hyperglycemia with a blood sugar of 508, also had leukocytosis, white cell count of 14,000. Although, urinalysis was mostly unremarkable; however, urine toxicology screen was positive for cannabinoids. The patient was actually admitted with extremely poorly controlled hypertension. Her blood pressure was extremely high on arrival. In fact on admission her blood pressure was 231/133 and she has severe hyperglycemia; however, she was diabetic ketoacidosis. Her anion gap was only 9. Her creatinine was elevated 2.2, but much better than last year. On 04/15/2017, her creatinine was 4.3 and at that time she was and was diagnosed with preeclampsia and her daughter was delivered by section. PAST MEDICAL HISTORY: Significant for type 1 diabetes mellitus, hypertension, diabetic gastroparesis, chronic kidney disease, most likely due to diabetic and hypertensive nephropathy. PAST SURGICAL HISTORY: Significant for , cholecystectomy, EGD. ALLERGIES: She is allergic to ZOFRAN, MORPHINE and TRAMADOL. We are not sure exactly what medications she is on. FAMILY HISTORY: She has 2 biological brothers, one older and 1 younger. She has one sister, who is adopted. Her father is alive at age of 52 and he is type 2 diabetes. Mother is alive at the age of 50. She has had sickle cell trait. SOCIAL HISTORY: She is single, has one daughter. Smokes half a pack a day and does not drink alcohol, but smokes marijuana occasionally. She is currently on disability. REVIEW OF SYSTEMS: The patient denied any blurring of vision, cataract, glaucoma or macular degeneration. Denied any earache, tinnitus or sensorineural deafness. Denied any nosebleeds, stuffy nose or postnasal drip. Denied any sore throat, sore tongue or difficulty swallowing. Did have recurrent bouts of nausea, vomiting, but denied any hematemesis, denied any diarrhea or constipation. Denied melena or hematochezia. Denied any dysuria, frequency or hematuria. Denied any chest pain or shortness of breath. PHYSICAL EXAMINATION: GENERAL: When examining her, on arrival to the Emergency Room, she was somewhat pale, but no jaundice, cyanosis, or thyromegaly. No jugular venous distension. No limb edema. VITAL SIGNS: Her heart rate was 104, blood pressure was 168/133, temperature was 98, respiratory rate was 18 and oxygen saturation was 98% on room air. HEAD, EYES, EARS, NOSE AND THROAT: Showed normocephalic, atraumatic. NECK: Supple. HEART: Showed normal first and second heart sounds. No gallop, rub or murmur. CHEST: Clear to auscultation. No crepitation or rhonchi. ABDOMEN: Distended, soft, nontender. No guarding or rigidity. No organomegaly. All hernial orifice intact. Bowel sounds normal. NEUROLOGIC: She is awake, alert, responding appropriately. All cranial nerves intact. EXTREMITIES: She moves extremities without difficulty. She ambulates without assistance or assistive devices. LABORATORY DATA: On arrival showed a white cell count 14,300, hemoglobin 12, hematocrit 36, MCV 86 and platelet count was incomplete because of platelet clumping. Her chemistry showed a serum sodium of 136, potassium 3.6, chloride 102, bicarbonate 25, anion gap of 9, BUN 17, creatinine was 2.2, estimated GFR was 72 mL per minute. Her glucose was 508, calcium was 9.5. Total bilirubin, AST, ALT were normal. Alkaline phosphatase slightly elevated. Total protein was 7.7, albumin was 3.2 and lipase was 625. Her urinalysis showed the urine was yellow, hazy with a pH of 7, specific gravity of 1.015, there are more than 100 mg of protein, more than 1000 mg of glucose in her urine. The urine was negative for ketones, moderate amount of blood, negative for nitrite and leukocyte esterase. There were 6-10 rbc's, 1-4 wbc's, no bacteria. Her toxicology screen was positive for cannabinoids, so this is a 32-year-old -[place] female patient, who was admitted with poorly controlled diabetes with marked hyperglycemia, acute pancreatitis and diabetic gastroparesis, hypertensive urgency. Her serum creatinine on 03/2017 was 4.3 mg/dL as of yesterday it was 2.2, I do not have anything in between. ASSESSMENT AND PLAN: The patient was started on IV fluid, insulin drip, and was started also on IV hydralazine and labetalol. We will contact her primary care physician to know exactly her medication list. We will monitor her blood sugar closely and also monitor her serum lipase. It is difficult to know whether this is really old diabetic gastroparesis and/or cyclic vomiting syndrome due to cannabinoids. ДМИТРИЙ AGUAYO MD DR: EFRAÍN/gloria JOB#: [id number] / [id number]
--- NOTE | 2017-12-02 11:45 | PN ---
DATE: 12/02/2017 SUBJECTIVE: The patient is resting, slightly propped up in bed, continued to complain of abdominal pain, continued to have nausea and vomiting. Apparently, she has vomited while in the Emergency Room, but so far she has not vomited. She is actually drinking water. PHYSICAL EXAMINATION: GENERAL: When I examined her this morning, she looked well and was clearly in no apparent respiratory distress, pale, but no jaundice, cyanosis or thyromegaly. No jugular venous distension. No limb edema. VITAL SIGNS: Her heart rate was 101, blood pressure was 166/99, temperature was 98.6, respiratory rate was 18 and oxygen saturation was 100% on room air. HEAD, EYES, EARS, NOSE AND THROAT: Showed normocephalic, atraumatic. NECK: Supple. HEART: Showed normal first and second heart sounds. No gallop, rub or murmur. CHEST: Clear to auscultation. No crepitation or rhonchi. ABDOMEN: Distended, soft, nontender. No guarding or rigidity. No organomegaly. All hernial orifice intact. Bowel sounds normal. NEUROLOGIC: She is awake, alert, responding appropriately. All cranial nerves intact. She moves extremities without difficulty. Her intake over the last 24 hours was 4200, output was 525. LABORATORY DATA: As of this morning, her white cell count was 13,000, hemoglobin 10, hematocrit 30, MCV 86 and platelet count 256,000. Her chemistry this morning showed a serum sodium 138, potassium 3.4, chloride 105, bicarbonate 21, anion gap of 12, BUN 17, creatinine 1.9, estimated GFR was 37 mL per minute. Her glucose was 345, calcium was 8.8, and lipase is down to 364. IMPRESSION: In summary, this is a 32-year-old -[place], who was admitted with hypertensive urgency for which she was started on clonidine TTS-3 patch to be replaced weekly, acute on chronic kidney injury. Her creatinine is slightly down from 2.2 to 1.9, severe hyperglycemia. Her blood sugar slightly better, but not yet optimally controlled, recurrent bouts of nausea and vomiting. The patient claims that she has diabetic gastroparesis. She is also abusing marijuana whether also cyclic vomiting syndrome is contributing is obviously a possibility. PLAN: To control the blood pressure, continued with her blood sugar and adjust insulin as needed. Her urinalysis was unremarkable. Her chest x-ray was also unremarkable. I will contact her primary care physician to get some more information, especially whether she has gastric emptying study or endoscopy kidney biopsy, follow up with the anesthesiologist assistant certified and her medication list. ДМИТРИЙ AGUAYO MD DR: EFRAÍN/gloria JOB#: [id number] / [id number]
[2017-12-02] MEDS ORDERED: ALBU8.5H8 INH (16:33)
[2017-12-02] MEDS ORDERED: CLON1PAT3 TD (16:33)
[2017-12-02] MEDS ORDERED: LORA10TA68 PO (16:33)
[2017-12-02] MEDS ORDERED: INSU100I17 SQ (16:33)
[2017-12-02] MEDS ORDERED: AMLO10TA4 PO (16:33)
[2017-12-02] MEDS ORDERED: CHOL100013 PO (16:33)
[2017-12-02] MEDS ORDERED: CARV12.5 PO (16:33)
[2017-12-02] MEDS ORDERED: FAMO-63 PO (16:33)
[2017-12-02] MEDS ORDERED: ASPI-612 PO (16:33)
[2017-12-02] MEDS ORDERED: INSU100I13 SQ (16:33)
[2017-12-02] MEDS ORDERED: SPIR50TA PO (16:33)
[2017-12-02] MEDS ORDERED: CYCL5TAB PO (16:33)
[2017-12-02] MEDS ORDERED: FURO80TA72 PO (16:33)
[2017-12-02] MEDS: amLODIPine BESYLATE 10 MG TABLET PO SCH (18:15)
[2017-12-02] MEDS: CARVEDILOL 12.5 MG TABLET PO SCH (18:15)
[2017-12-02] MEDS: INSULIN LISPRO 300 UNITS/3 ML INSULN.PEN. SQ SCH ×2 (18:21→20:47)
[2017-12-02] MEDS ORDERED: ACETAMINOPHEN 500 MG TABLET PO PRN (18:45)
[2017-12-03] VITALS (9 sets, daily range): BP systolic 136–188; BP diastolic 73–110
[2017-12-03] MEDS: hydrALAZINE 20 MG/ML VIAL. IV PRN (02:41)
[2017-12-03] MEDS: HYDROmorphone PF 1 MG/ML DISP.SYRIN IV PRN (02:42)
[2017-12-03] MEDS: IV NORMAL SALINE 1,000ML 1,000 ML IV SCH ×2 (03:44→07:30)
[2017-12-03] MEDS: amLODIPine BESYLATE 10 MG TABLET PO SCH (07:44)
[2017-12-03] MEDS: CARVEDILOL 12.5 MG TABLET PO SCH (07:44)
[2017-12-03] MEDS: INSULIN LISPRO 300 UNITS/3 ML INSULN.PEN. SQ SCH (07:54)
[2017-12-03] MEDS ORDERED: amLODIPine BESYLATE 10 MG TABLET PO SCH (09:00)
[2017-12-03] MEDS: PROCHLORPERAZINE 10 MG/2 ML VIAL. IV PRN (09:21)
[2017-12-03] MEDS ORDERED: INSULIN GLARGINE 300 UNITS/3 ML INSULN.PEN. SQ SCH (10:30)
--- NOTE | 2017-12-03 12:20 | DS ---
DATE OF DISCHARGE: 12/03/2017 HISTORY OF PRESENT ILLNESS: The patient is a 32-year-old -[place]div[place] female patient, who was admitted with complaint of generalized abdominal pain, nausea, vomiting. She apparently is known to have diabetes and was diagnosed with diabetic gastroparesis since she was 24 years old. She was admitted recently at [facility] for gastroparesis. On admission, she was diagnosed with hypertensive urgency, severe hyperglycemia, although she was not in diabetic ketoacidosis. She has also acute on chronic kidney injury and she was initially started on insulin drip and was switched back to her Lantus and NovoLog insulin. We did resume her blood pressure medication and now she is tolerating her diet, has had no further episodes of nausea, vomiting since admission. Her blood sugar is reasonably, although not still suboptimally controlled. Her blood pressure is much better controlled and a decision was made to discharge her home to continue on all her medications, advised to follow up with her primary care physician at [facility]. We did contact her pharmacy and apparently she has refills for all her medications. PHYSICAL EXAMINATION: GENERAL: When I examined her today, she looked well and was clearly in no apparent respiratory distress, slightly pale, but no jaundice, cyanosis or thyromegaly. No jugular venous distension. No limb edema. VITAL SIGNS: Her heart rate was 84, blood pressure was 136/73, temperature was 98.6, respiratory rate was 12 and oxygen saturation was 97% on room air. HEAD, EYES, EARS, NOSE AND THROAT: Normocephalic, atraumatic. NECK: Supple. HEART: Showed normal first and second heart sounds. No gallop, rub or murmur. CHEST: Clear to auscultation. No crepitation or rhonchi. ABDOMEN: Distended, soft, nontender. NEUROLOGIC: She is awake, alert, responding appropriately. All cranial nerves intact. EXTREMITIES: She moves extremities without difficulty. She ambulates without assistance or assistive devices. LABORATORY DATA: Showed that her white cell count was 13,100, hemoglobin 10, hematocrit 30, MCV 86, and platelet count of 256,000. Her chemistry showed that her serum sodium was 138, potassium 3.4, chloride 105, bicarbonate 21, anion gap of 12, BUN 17, creatinine 1.9, estimated GFR was 37 mL per minute, calcium was 8.8 and serum lipase is back to normal level at 364. DISCHARGE MEDICATIONS: She was discharged home to continue on following medications: Albuterol sulfate 2 puffs every 6 hours, amlodipine besylate 10 mg once a day, aspirin enteric coated 81 mg once a day, carvedilol 12.5 mg twice a day, cholecalciferol, vitamin D3 1000 international units once a day, 5 mg 3 times a day, famotidine 20 mg twice a day, furosemide 80 mg once a day. She is on NovoLog insulin 10 units before meals and Lantus insulin 30 units twice a day, loratadine 10 mg daily and spironolactone 50 mg daily. FINAL DISCHARGE DIAGNOSES: 1. Acute pancreatitis. 2. Hypertensive urgency. 3. Dehydration with acute and recurrent bouts of nausea, vomiting with [id number] kidney injury, resolving. She has chronic renal failure, most likely due to hypertensive and diabetic nephropathy and diabetic gastroparesis, anemia of chronic kidney disease. ДМИТРИЙ AGUAYO MD DR: EFRAÍN/gloria JOB#: [id number] / [id number]
== END 2017-12-03 11:40 | disposition home or self-care (01) | DRG 438 ==
LOC: ER 12:00 → ICU 16:00
PROVIDERS: ADMIT Internal Medicine; ATTEND Internal Medicine
DX: K85.90 Acute pancreatitis without necrosis or infection, unspecified (principal); E10.10 Type 1 diabetes mellitus with ketoacidosis without coma; N17.9 Acute kidney failure, unspecified; I16.0 Hypertensive urgency; D63.1 Anemia in chronic kidney disease; E10.21 Type 1 diabetes mellitus with diabetic nephropathy; E10.22 Type 1 diabetes mellitus with diabetic chronic kidney disease; E86.0 Dehydration; F12.10 Cannabis abuse, uncomplicated; I12.9 Hypertensive chronic kidney disease with stage 1 through stage 4 chronic kidney disease, or unspecified chronic kidney disease; K31.84 Gastroparesis; E10.43 Type 1 diabetes mellitus with diabetic autonomic (poly)neuropathy; N18.9 Chronic kidney disease, unspecified; Z83.2 Family history of diseases of the blood and blood-forming organs and certain disorders involving the immune mechanism; Z83.3 Family history of diabetes mellitus; Z91.19 Patient's noncompliance with other medical treatment and regimen; Z90.49 Acquired absence of other specified parts of digestive tract; Z98.51 Tubal ligation status; Z88.5 Allergy status to narcotic agent; Z88.8 Allergy status to other drugs, medicaments and biological substances
CPT/HCPCS: 36415; 80048; 80053; 80307; 81001; 82947; 83690; 85025; 87641; 96361; 96374; 96375; J0360; J0780; J1170; J1630; J1815; J3480; J3490; 99291-25; G0479; J7030

== ENCOUNTER 2018-01-26 11:04 | Inpatient (IN) | payer OTHER ==
[~2018-01-26] VITALS: Ht 167.6 cm; Wt 85.8 kg
[2018-01-26] VITALS (10 sets, daily range): BP systolic 135–169; BP diastolic 82–109
[~2018-01-26 11:04] MED LIST: ALBU8.5H8 INH; AMLO10TA4 PO; ASPI-612 PO; CARV12.5 PO; CHOL100013 PO; CIPR250T30 PO; CLON1PAT3 TD; CYCL5TAB PO; DICY10CA3 PO; FAMO-63 PO; FURO80TA72 PO; GABA-585 PO; INSU100I13 SQ; INSU100I17 SQ; LORA10TA68 PO; METR250T PO; PANT40TA3 PO; SPIR50TA PO
[2018-01-26] MEDS ORDERED: IV NORMAL SALINE 1,000ML 1,000 ML IV ONE (11:30)
[2018-01-26] MEDS ORDERED: LORazepam 2 MG/ML VIAL IV ONE (11:30)
[2018-01-26] MEDS ORDERED: METOCLOPRAMIDE HCL 10 MG/2 ML VIAL. IV ONE (11:30)
[2018-01-26 11:42] LABS: BASO # 0.2 x10^3/uL (0.0-0.2); BASO % 2 % (0-3); EOS # 0.2 x10^3/uL (0.0-0.7); EOS % 2 % (0-3); HEMATOCRIT 32.6 % (36.0-47.0); HEMOGLOBIN 11.1 g/dL (12.0-15.5); LYMPH # 2.3 x10^3/uL (1.0-4.8); LYMPH % 21 % (24-48); MEAN CORPUSCULAR HEMOGLOBIN 30 pg (25-35); MEAN CORPUSCULAR HGB CONC 34 g/dL (31-37); MEAN CORPUSCULAR VOLUME 87 fL (79-100); MONO # 0.6 x10^3/uL (0.0-1.1); MONO % 6 % (0-9); NEUT # 7.5 x10^3uL (1.8-7.7); NEUT % 70 % (31-73); PLATELET COUNT 409 x10^3/uL (140-400); RED BLOOD COUNT 3.76 x10^6/uL (3.50-5.40); RED CELL DISTRIBUTION WIDTH 14.6 % (11.5-14.5); WHITE BLOOD COUNT 10.8 x10^3/uL (4.0-11.0)
[2018-01-26] MEDS ORDERED: fentaNYL PF 250 MCG/5 ML VIAL IV ONE (12:00)
[2018-01-26 12:44] LABS: ALBUMIN 2.9 g/dL (3.4-5.0); ALBUMIN/GLOBULIN RATIO 0.7 (1.0-1.7); CALCIUM 8.8 mg/dL (8.5-10.1); CREATININE 2.3 mg/dL (0.6-1.0); GFR 30.1; POTASSIUM 3.8 mmol/L (3.5-5.1); TOTAL BILIRUBIN 0.2 mg/dL (0.2-1.0); TOTAL PROTEIN 7.2 g/dL (6.4-8.2)
[2018-01-26 13:07] LABS: BILIRUBIN,URINE NEG (NEG); CLARITY,URINE CLEAR; COLOR,URINE STRAW; GLUCOSE,URINE >=1000 mg/dL (NEG)
[2018-01-26 13:08] LABS: BARBITURATES NEG (NEG); BENZODIAZEPINES NEG (NEG); CANNABINOIDS NEG (NEG); COCAINE NEG (NEG); METHADONE NEG (NEG); OPIATES NEG (NEG); PHENCYCLIDINE NEG (NEG)
[2018-01-26 13:09] LABS: BACTERIA,URINE 0 /HPF (0-FEW); NITRITE,URINE NEG (NEG); SQUAMOUS EPITHELIAL CELL,UR FEW /LPF; UROBILINOGEN,URINE 0.2 mg/dL (0.2 mg/dL)
[2018-01-26 13:10] LABS: AMPHETAMINE/METHAMPHETAMINE NEG (NEG)
--- NOTE | 2018-01-26 13:28 | PHYS DOC ---
Past History Past Medical History: Anemia, Diabetes, GERD, Hypertension, Renal Failure, Other Past Surgical History: Cholecystectomy, , Tubal ligation Alcohol Use: None Drug Use: None Adult General Chief Complaint Chief Complaint: NAUSEA/VOMITING/DIARRHEA HPI HPI 32-year-old female with multiple medical problems including chronic pancreatitis presents with severe abdominal pain that radiates to her back, nausea, vomiting. She states this is very similar to the symptoms she had when she was admitted on January 17. She denies any melena or hematemesis. She states her blood sugars have been running high. She's not been able to eat or drink much secondary to the pain. She also states that the pain is causing her to become very anxious. Currently, she states the pain is 10 out of 10.[] Review of Systems Review of Systems Constitutional: Denies fever or chills [] Eyes: Denies change in visual acuity, redness, or eye pain [] HENT: Denies nasal congestion or sore throat [] Respiratory: Denies cough or shortness of breath [] Cardiovascular: No additional information not addressed in HPI [] GI: Per history of present illness[] : Denies dysuria or hematuria [] Musculoskeletal: Denies back pain or joint pain [] Integument: Denies rash or skin lesions [] Neurologic: Denies headache, focal weakness or sensory changes [] Endocrine: Denies polyuria or polydipsia [] All other systems were reviewed and found to be within normal limits, except as documented in this note. Current Medications Current Medications Current Medications Medications (Trade) Dose Ordered Sig/Rick Start Time Stop Time Status Last Admin Dose Admin Fentanyl Citrate (Fentanyl 2ml Vial) 50 mcg 1X ONCE 01/26/18 12:00 01/26/18 12:01 DC 01/26/18 11:56 50 MCG Fentanyl Citrate (Fentanyl 5ml Vial) 50 mcg 1X ONCE 01/26/18 12:00 01/26/18 12:01 DC Lorazepam (Ativan) 2 mg 1X ONCE 01/26/18 11:30 01/26/18 11:53 DC 01/26/18 11:51 2 MG Metoclopramide HCl (Reglan Vial) 10 mg 1X ONCE 01/26/18 11:30 01/26/18 11:53 DC 01/26/18 11:51 10 MG Sodium Chloride 1,000 ml @ 1,000 mls/hr 1X ONCE 01/26/18 11:30 01/26/18 12:29 DC 01/26/18 11:50 1,000 MLS/HR Allergies Allergies Allergies Coded Allergies Type Severity Reaction Last Updated Verified ketorolac Allergy Mild 04/15/17 Yes morphine Allergy Mild Unknown 04/15/17 Yes ondansetron Allergy Mild Unknown 04/15/17 Yes Physical Exam Physical Exam Constitutional: Well developed, well nourished, moderate distress, appears acutely ill. [] HENT: Normocephalic, atraumatic, bilateral external ears normal, oropharynx moist, no oral exudates, nose normal. [] Eyes: PERRLA, EOMI, conjunctiva normal, no discharge. [] Neck: Normal range of motion, no tenderness, supple, no stridor. [] Cardiovascular:Heart rate regular rhythm, no murmur [] Lungs & Thorax: Bilateral breath sounds clear to auscultation [] Abdomen: Diffusely tender to palpate with voluntary guarding but no rebound there is no pulsatile mass. [] Skin: Warm, dry, no erythema, no rash. [] Back: No tenderness, no CVA tenderness. [] Extremities: No tenderness, no cyanosis, no clubbing, ROM intact, no edema. [] Neurologic: Alert and oriented X 3, normal motor function, normal sensory function, no focal deficits noted. [] Psychologic: Extremely anxious[] Current Patient Data Vital Signs Vital Signs Date Time Temp Pulse Resp B/P (MAP) Pulse Ox O2 Delivery O2 Flow Rate FiO2 01/26/18 11:56 0 98 Lab Results Laboratory Tests Test 01/26/18 11:26 01/26/18 12:15 01/26/18 12:45 White Blood Count 10.8 x10^3/uL (4.0-11.0) Red Blood Count 3.76 x10^6/uL (3.50-5.40) Hemoglobin 11.1 g/dL (12.0-15.5) L Hematocrit 32.6 % (36.0-47.0) L Mean Corpuscular Volume 87 fL (79-100) Mean Corpuscular Hemoglobin 30 pg (25-35) Mean Corpuscular Hemoglobin Concent 34 g/dL (31-37) Red Cell Distribution Width 14.6 % (11.5-14.5) H Platelet Count 409 x10^3/uL (140-400) H Neutrophils (%) (Auto) 70 % (31-73) Lymphocytes (%) (Auto) 21 % (24-48) L Monocytes (%) (Auto) 6 % (0-9) Eosinophils (%) (Auto) 2 % (0-3) Basophils (%) (Auto) 2 % (0-3) Neutrophils # (Auto) 7.5 x10^3uL (1.8-7.7) Lymphocytes # (Auto) 2.3 x10^3/uL (1.0-4.8) Monocytes # (Auto) 0.6 x10^3/uL (0.0-1.1) Eosinophils # (Auto) 0.2 x10^3/uL (0.0-0.7) Basophils # (Auto) 0.2 x10^3/uL (0.0-0.2) Sodium Level 136 mmol/L (136-145) Potassium Level 3.8 mmol/L (3.5-5.1) Chloride Level 102 mmol/L (98-107) Carbon Dioxide Level 25 mmol/L (21-32) Anion Gap 9 (6-14) Blood Urea Nitrogen 15 mg/dL (7-20) Creatinine 2.3 mg/dL (0.6-1.0) H Estimated GFR (Cockcroft-Gault) 30.1 BUN/Creatinine Ratio 7 (6-20) Glucose Level 416 mg/dL (70-99) H Calcium Level 8.8 mg/dL (8.5-10.1) Total Bilirubin 0.2 mg/dL (0.2-1.0) Aspartate Amino Transferase (AST) 17 U/L (15-37) Alanine Aminotransferase (ALT) 13 U/L (14-59) L Alkaline Phosphatase 114 U/L (46-116) Total Protein 7.2 g/dL (6.4-8.2) Albumin 2.9 g/dL (3.4-5.0) L Albumin/Globulin Ratio 0.7 (1.0-1.7) L Lipase 596 U/L (73-393) H Ethyl Alcohol Level < 10 mg/dL (0-10) Urine Collection Type Void Urine Color Straw Urine Clarity Clear Urine pH 7.5 Urine Specific Cos Cob 1.020 Urine Protein >100 mg/dl (NEG-TRACE) Urine Glucose (UA) >=1000 mg/dL (NEG) Urine Ketones (Stick) Neg mg/dL (NEG) Urine Blood Mod (NEG) Urine Nitrite Neg (NEG) Urine Bilirubin Neg (NEG) Urine Urobilinogen Dipstick 0.2 mg/dL (0.2 mg/dL) Urine Leukocyte Esterase Neg (NEG) Urine RBC 1-2 /HPF (0-2) Urine WBC 1-4 /HPF (0-4) Urine Squamous Epithelial Cells Few /LPF Urine Bacteria 0 /HPF (0-FEW) Urine Opiates Screen Neg (NEG) Urine Methadone Screen Neg (NEG) Urine Barbiturates Neg (NEG) Urine Phencyclidine Screen Neg (NEG) Urine Amphetamine/Methamphetamine Neg (NEG) Urine Benzodiazepines Screen Neg (NEG) Urine Cocaine Screen Neg (NEG) Urine Cannabinoids Screen Neg (NEG) Urine Ethyl Alcohol Neg (NEG) EKG EKG [] Radiology/Procedures Radiology/Procedures [] Course & Med Decision Making Course & Med Decision Making Pertinent Labs and Imaging studies reviewed. (See chart for details) [ED course: Evaluation reveals a 32-year-old female who is extremely anxious and in moderate to severe amount of pain secondary to abdominal discomfort. She was given IV fluids and fentanyl and Reglan during her stay in the department which did help alleviate her symptoms. She also had 2 mg of Ativan which helped calm her down. Her lipase was elevated at 596 and given the degree of pain that this is causing her she'll need to be admitted to the hospital for evaluation and further treatment.] Dragon Disclaimer Dragon Disclaimer This electronic medical record was generated, in whole or in part, using a voice recognition dictation system. Departure Departure: Impression: Primary Impression: Abdominal pain Additional Impressions: Acute pancreatitis Elevated blood pressure reading Disposition: ADMITTED INPATIENT Admitting Physician: Other (Dr. Culver) Condition: GUARDED Referrals: CHARO CROOK MD (PCP) Problem Qualifiers Primary Impression: Abdominal pain Abdominal location: generalized Qualified Codes: R10.84 - Generalized abdominal pain Additional Impressions: Acute pancreatitis Pancreatitis type: unspecified pancreatitis type Acute pancreatitis complication: unspecified Qualified Codes: K85.90 - Acute pancreatitis without necrosis or infection, unspecified TAMIKO GALVAN DO Jan 26, 2018 13:28
[2018-01-26] MEDS ORDERED: IV NORMAL SALINE 1,000ML 1,000 ML IV SCH (13:30)
[2018-01-26] MEDS ORDERED: DEXTROSE 50% 25 GM / 50ML DISP.SYRIN. IV PRN (13:30)
[2018-01-26] MEDS ORDERED: hydrALAZINE 20 MG/ML VIAL. IV ONE (13:45)
[2018-01-26] MEDS ORDERED: LABETALOL 100 MG/20 ML VIAL. IV ONE ×2 (13:56→14:00)
[2018-01-26] MEDS ORDERED: INSULIN LISPRO 300 UNITS/3 ML INSULN.PEN. SQ ONE (14:15)
[2018-01-26] MEDS ORDERED: ONDANSETRON PF 4 MG/2 ML VIAL. IV PRN (16:15)
[2018-01-26] MEDS ORDERED: INSULIN REGULAR VIAL 150 UNIT in 0.9 % SODIUM CHLORIDE 150ML 150 ML IV PRN (16:30)
[2018-01-26] MEDS ORDERED: INSULIN LISPRO 300 UNITS/3 ML INSULN.PEN. SQ SCH ×2 (16:30→17:00)
[2018-01-26] MEDS: POTASSIUM CHLORIDE 40 MEQ in IV DEXTROSE 5 %-0.45 % NACL 1,000 ML IV SCH (17:57)
[2018-01-26] MEDS: METOCLOPRAMIDE HCL 10 MG/2 ML VIAL. IV PRN (20:04)
[2018-01-27] VITALS (20 sets, daily range): BP systolic 127–188; BP diastolic 76–117
[2018-01-27] MEDS: POTASSIUM CHLORIDE 40 MEQ in IV DEXTROSE 5 %-0.45 % NACL 1,000 ML IV SCH (00:34)
[2018-01-27] MEDS: INSULIN LISPRO 300 UNITS/3 ML INSULN.PEN. SQ PRN ×4 (02:27→21:26)
[2018-01-27] MEDS: METOCLOPRAMIDE HCL 10 MG/2 ML VIAL. IV PRN ×3 (03:06→16:07)
[2018-01-27] MEDS ORDERED: IV NORMAL SALINE 1,000ML 1,000 ML IV SCH ×2 (07:30→09:17)
[2018-01-27 07:33] LABS: BASO # 0.1 x10^3/uL (0.0-0.2); BASO % 1 % (0-3); EOS # 0.1 x10^3/uL (0.0-0.7); EOS % 1 % (0-3); HEMATOCRIT 29.2 % (36.0-47.0); HEMOGLOBIN 9.7 g/dL (12.0-15.5); LYMPH # 3.2 x10^3/uL (1.0-4.8); LYMPH % 31 % (24-48); MEAN CORPUSCULAR HEMOGLOBIN 29 pg (25-35); MEAN CORPUSCULAR HGB CONC 33 g/dL (31-37); MEAN CORPUSCULAR VOLUME 87 fL (79-100); MONO # 0.6 x10^3/uL (0.0-1.1); MONO % 6 % (0-9); NEUT # 6.2 x10^3uL (1.8-7.7); NEUT % 61 % (31-73); PLATELET COUNT 311 x10^3/uL (140-400); RED BLOOD COUNT 3.34 x10^6/uL (3.50-5.40); RED CELL DISTRIBUTION WIDTH 14.8 % (11.5-14.5); WHITE BLOOD COUNT 10.2 x10^3/uL (4.0-11.0)
[2018-01-27 07:53] LABS: ALBUMIN 2.6 g/dL (3.4-5.0); ALBUMIN/GLOBULIN RATIO 0.6 (1.0-1.7); CALCIUM 8.6 mg/dL (8.5-10.1); CREATININE 2.1 mg/dL (0.6-1.0); GFR 33.5; POTASSIUM 3.8 mmol/L (3.5-5.1); TOTAL BILIRUBIN 0.1 mg/dL (0.2-1.0); TOTAL PROTEIN 6.7 g/dL (6.4-8.2)
--- NOTE | 2018-01-27 12:49 | PDOC1 ---
History of Present Illness History of Present Illness 32/ to ED c/o abdominal pain, N/V. Patient presented to ED with above complaints for the past day or so. Pain 10/ 10 epigastric radiating to right scapula with N/V, decreased PO intake. She has h/o periods of cyclic vomitting/abdominal pain, recent diagnosis at pancreatitis. Also inpatient admissions [facility] November 2017 hypertensive urgency, and more recently pancreatitis/hypertensive urgency discharged 01/21/18. Patient admits to noncompliance with meds, diet, continues to smoke marijuana regularly despite cyclic vomitting symptoms. ED records indicate patient was in severe pain and very anxious, pertinent labs: BUN 15, Cr 2.3, glucose 416, lipase 596 , and UDS was actually negative. She was given ativan, reglan, fentanyl, insulin and IV fluids in the ED with some improvement but with her elevated blood pressures and persistent pain admitted to the ICU on cardene and insulin drips with fluids and antiemetics for NPO bowel rest. I find patient sitting up in bed complaining of hunger, wanting more to eat than clear liquids. States her pain is controlled however her BP, electrolytes , and kidney function remain altered. She denies other acute complaints. PMH: uncontrolled DM1, diabetic gastroparesis, uncontrolled HTN, chronic kidney disease, pancreatitis PSH: CS, cholecystectomy FH: Father 52 living DM2, mother 50 living sickle cell trait Soc: single/disability/9 mos daughter, 1/2 PPD, marijuana regularly, no etoh Chief Complaint: NAUSEA/VOMITING/DIARRHEA Allergies: Coded Allergies: ketorolac (Verified Allergy, Mild, 04/15/17) morphine (Verified Allergy, Mild, Unknown, 04/15/17) ondansetron (Verified Allergy, Mild, Itching, 01/26/18) Review of Systems Review Of Systems Fourteen system , review of systems has been reviewed. See HPI for pertinent positives and negative responses, other adams all other systems are negative, non pertinent or non contributory Medications Current Medications Sodium Chloride 1,000 ml @ 1,000 mls/hr 1X ONCE IV Last administered on at 11:50; Start 01/26/18 at 11:30; Stop 01/26/18 at 12:29; Status DC Fentanyl Citrate (Fentanyl 5ml Vial) 50 mcg 1X ONCE IV ; Start 01/26/18 at 12: 00; Stop 01/26/18 at 12:01; Status DC Metoclopramide HCl (Reglan Vial) 10 mg 1X ONCE IV Last administered on at 11:51; Start 01/26/18 at 11:30; Stop 01/26/18 at 11:53; Status DC Lorazepam (Ativan) 2 mg 1X ONCE IV Last administered on 01/26/18at 11:51; Start 01/26/18 at 11:30; Stop 01/26/18 at 11:53; Status DC Fentanyl Citrate (Fentanyl 2ml Vial) 100 mcg STK-MED ONCE .ROUTE ; Start at 11:47; Stop 01/26/18 at 11:48; Status DC Fentanyl Citrate (Fentanyl 2ml Vial) 50 mcg 1X ONCE IV Last administered on 04/04at 11:56; Start 01/26/18 at 12:00; Stop 01/26/18 at 12:01; Status DC Fentanyl Citrate (Fentanyl 2ml Vial) 50 mcg PRN Q2HR PRN IV PAIN Last administered on 01/27/18at 12:37; Start 01/26/18 at 13:30; Stop 01/27/18 at 13:29 Sodium Chloride 1,000 ml @ 200 mls/hr Q5H IV ; Start 01/26/18 at 13:30; Stop at 17:26; Status DC Insulin Human Lispro (HumaLOG) 0-7 UNITS TIDWMEALS SQ ; Start 01/26/18 at 17:00 ; Stop 01/26/18 at 18:13; Status DC Dextrose 12.5 gm PRN Q15MIN PRN IV SEE COMMENTS; Start 01/26/18 at 13:30 Hydralazine HCl (Apresoline) 20 mg 1X ONCE IV ; Start 01/26/18 at 13:45; Stop 01/26/18 at 13:52; Status DC Insulin Human Lispro (HumaLOG) 10 units TIDAC SQ ; Start 01/26/18 at 16:30; Stop 01/26/18 at 16:30; Status DC Insulin Human Lispro (HumaLOG) 10 units 1X ONCE SQ Last administered on at 14:01; Start 01/26/18 at 14:15; Stop 01/26/18 at 14:16; Status DC Labetalol HCl (Normodyne) 20 mg 1X ONCE IV Last administered on 01/26/18at 14: 04; Start 01/26/18 at 14:00; Stop 01/26/18 at 14:01; Status DC Labetalol HCl (Normodyne) 100 mg STK-MED ONCE IV ; Start 01/26/18 at 13:56; Stop 01/26/18 at 13:57; Status DC Nicardipine HCl 50 mg/Sodium Chloride 270 ml @ 0 mls/hr CONT PRN IV SEE I/O RECORD Last administered on 01/27/18at 03:22; Start 01/26/18 at 14:30 Acetaminophen (Tylenol) 650 mg PRN Q6HRS PRN PO Headaches, Temp > 101.5F; Start 01/26/18 at 16:15 Metoclopramide HCl (Reglan Vial) 10 mg PRN Q6HRS PRN IV NAUSEA/VOMITING Last administered on 01/27/18at 08:24; Start 01/26/18 at 16:15 Ondansetron HCl (Zofran) 4 mg PRN Q8HRS PRN IV NAUSEA/VOMITING; Start 01/26/18 at 16:15; Stop 01/26/18 at 17:28; Status DC Insulin Human Regular 150 unit/ Sodium Chloride 151.5 ml @ 0 mls/hr CONT PRN IV SEE I/O RECORD Last administered on 01/26/18at 16:48; Start 01/26/18 at 16:30 Potassium Chloride 40 meq/ Dextrose/Sodium Chloride 1,020 ml @ 150 mls/hr Q6H48M IV Last administered on 01/27/18at 00:34; Start 01/26/18 at 17:30; Stop 01/27/18 at 07:26; Status DC Insulin Human Lispro (HumaLOG) 0-7 UNITS TIDWMEALS PRN SQ HYPERGLYCEMIA Last administered on 01/27/18at 04:48; Start 01/26/18 at 18:15 Nicardipine HCl (Cardene) 25 mg STK-MED ONCE IV ; Start 01/27/18 at 03:14; Stop 01/27/18 at 03:15; Status DC Sodium Chloride 1,000 ml @ 100 mls/hr Q10H IV Last administered on 01/27/18at 08:08; Start 01/27/18 at 07:30; Stop 01/27/18 at 09:45; Status DC Sodium Chloride 1,000 ml @ 150 mls/hr Q6H40M IV Last administered on at 09:46; Start 01/27/18 at 09:17; Stop 01/27/18 at 15:56 Active Scripts Active Protonix (Pantoprazole Sodium) 40 Mg Tablet.dr 1 Tab PO DAILY 30 Days Neurontin (Gabapentin) 100 Mg Capsule 100 Mg PO TID 30 Days Dicyclomine Hcl 10 Mg Capsule 1 Cap PO TID Flagyl (Metronidazole) 250 Mg Tablet 1 Tab PO TID Cipro (Ciprofloxacin Hcl) 250 Mg Tablet 1 Tab PO BID Reported Aldactone (Spironolactone) 50 Mg Tablet 1 Tab PO DAILY LAST DOSE GIVEN: DATE: TIME: NEXT DOSE DUE: DATE: TIME: Lasix (Furosemide) 80 Mg Tablet 1 Tab PO DAILY LAST DOSE GIVEN: DATE: TIME: NEXT DOSE DUE: DATE: TIME: Coreg (Carvedilol) 12.5 Mg Tablet 1 Tab PO BID LAST DOSE GIVEN: DATE: TIME: NEXT DOSE DUE: DATE: TIME: Novolog Flexpen (Insulin Aspart) 100 Unit/1 Ml Insuln.pen 10 Unit SQ TIDWMEALS LAST DOSE GIVEN: DATE: TIME: NEXT DOSE DUE: DATE: TIME: Lantus Solostar (Insulin Glargine,Hum.rec.anlog) 100 Unit/1 Ml Insuln.pen 10 Unit SQ DAILY LAST DOSE GIVEN: DATE: TIME: NEXT DOSE DUE: DATE: TIME: Norvasc (Amlodipine Besylate) 10 Mg Tablet 1 Tab PO DAILY LAST DOSE GIVEN: DATE: TIME: NEXT DOSE DUE: DATE: TIME: Proair Hfa Inhaler (Albuterol Sulfate) 8.5 Gm Hfa.aer.ad 2 Puff INH PRN Q6HRS LAST DOSE GIVEN: DATE: TIME: NEXT DOSE DUE: DATE: TIME: Exam Vital Signs Vital Signs Date Time Temp Pulse Resp B/P (MAP) Pulse Ox O2 Delivery O2 Flow Rate FiO2 01/27/18 12:37 18 Room Air 01/27/18 11:17 81 160/102 (121) 100 01/27/18 09:48 97.6 Assessment/Plan Assessment/Plan Pancreatitis Hypertensive Urgency Uncontrolled DM1 DM Gastroparesis PATTIE on CKD COURSE Allergies Coded Allergies Type Severity Reaction Last Updated Verified ketorolac Allergy Mild 11/29/17 Yes morphine Allergy Mild Unknown 04/15/17 Yes ondansetron Allergy Mild Itching 01/26/18 Yes Laboratory Tests Test 01/26/18 13:38 01/26/18 16:09 01/26/18 16:42 01/26/18 17:49 Glucose (Fingerstick) 372 mg/dL (70-99) 247 mg/dL (70-99) 185 mg/dL (70-99) Nasal Screen MRSA (PCR) Negative (Negative) Test 01/26/18 18:47 01/26/18 19:55 01/26/18 21:08 01/26/18 22:03 Glucose (Fingerstick) 149 mg/dL (70-99) 112 mg/dL (70-99) 82 mg/dL (70-99) 86 mg/dL (70-99) Test 01/26/18 22:55 01/26/18 23:59 01/27/18 01:07 01/27/18 02:22 Glucose (Fingerstick) 77 mg/dL (70-99) 145 mg/dL (70-99) 188 mg/dL (70-99) 244 mg/dL (70-99) Test 01/27/18 03:11 01/27/18 04:42 01/27/18 05:48 01/27/18 07:20 Glucose (Fingerstick) 272 mg/dL (70-99) 268 mg/dL (70-99) 207 mg/dL (70-99) White Blood Count 10.2 x10^3/uL (4.0-11.0) Red Blood Count 3.34 x10^6/uL (3.50-5.40) Hemoglobin 9.7 g/dL (12.0-15.5) Hematocrit 29.2 % (36.0-47.0) Mean Corpuscular Volume 87 fL (79-100) Mean Corpuscular Hemoglobin 29 pg (25-35) Mean Corpuscular Hemoglobin Concent 33 g/dL (31-37) Red Cell Distribution Width 14.8 % (11.5-14.5) Platelet Count 311 x10^3/uL (140-400) Neutrophils (%) (Auto) 61 % (31-73) Lymphocytes (%) (Auto) 31 % (24-48) Monocytes (%) (Auto) 6 % (0-9) Eosinophils (%) (Auto) 1 % (0-3) Basophils (%) (Auto) 1 % (0-3) Neutrophils # (Auto) 6.2 x10^3uL (1.8-7.7) Lymphocytes # (Auto) 3.2 x10^3/uL (1.0-4.8) Monocytes # (Auto) 0.6 x10^3/uL (0.0-1.1) Eosinophils # (Auto) 0.1 x10^3/uL (0.0-0.7) Basophils # (Auto) 0.1 x10^3/uL (0.0-0.2) Sodium Level 138 mmol/L (136-145) Potassium Level 3.8 mmol/L (3.5-5.1) Chloride Level 105 mmol/L (98-107) Carbon Dioxide Level 26 mmol/L (21-32) Anion Gap 7 (6-14) Blood Urea Nitrogen 13 mg/dL (7-20) Creatinine 2.1 mg/dL (0.6-1.0) Estimated GFR (Cockcroft-Gault) 33.5 BUN/Creatinine Ratio 6 (6-20) Glucose Level 80 mg/dL (70-99) Calcium Level 8.6 mg/dL (8.5-10.1) Total Bilirubin 0.1 mg/dL (0.2-1.0) Aspartate Amino Transf (AST/SGOT) 16 U/L (15-37) Alanine Aminotransferase (ALT/SGPT) 13 U/L (14-59) Alkaline Phosphatase 97 U/L (46-116) Total Protein 6.7 g/dL (6.4-8.2) Albumin 2.6 g/dL (3.4-5.0) Albumin/Globulin Ratio 0.6 (1.0-1.7) Lipase 456 U/L (73-393) Test 01/27/18 08:04 01/27/18 08:33 01/27/18 09:51 01/27/18 12:44 Glucose (Fingerstick) 37 mg/dL (70-99) 131 mg/dL (70-99) 120 mg/dL (70-99) 107 mg/dL (70-99) Current Medications Medications (Trade) Dose Ordered Sig/Rick Route PRN Reason Start Time Stop Time Status Last Admin Dose Admin Fentanyl Citrate (Fentanyl 2ml Vial) 50 mcg PRN Q2HR PRN IV PAIN 01/26/18 13:30 01/27/18 13:29 01/27/18 12:37 Sodium Chloride 1,000 ml @ 200 mls/hr Q5H IV 01/26/18 13:30 01/26/18 17:26 DC Insulin Human Lispro (HumaLOG) 0-7 UNITS TIDWMEALS SQ 01/26/18 17:00 01/26/18 18:13 DC Dextrose 12.5 gm PRN Q15MIN PRN IV SEE COMMENTS 01/26/18 13:30 Hydralazine HCl (Apresoline) 20 mg 1X ONCE IV 01/26/18 13:45 01/26/18 13:52 DC Insulin Human Lispro (HumaLOG) 10 units TIDAC SQ 01/26/18 16:30 01/26/18 16:30 DC Insulin Human Lispro (HumaLOG) 10 units 1X ONCE SQ 01/26/18 14:15 01/26/18 14:16 DC 01/26/18 14:01 Labetalol HCl (Normodyne) 20 mg 1X ONCE IV 01/26/18 14:00 01/26/18 14:01 DC 01/26/18 14:04 Labetalol HCl (Normodyne) 100 mg STK-MED ONCE IV 01/26/18 13:56 01/26/18 13:57 DC Nicardipine HCl 50 mg/Sodium Chloride 270 ml @ 0 mls/hr CONT PRN IV SEE I/O RECORD 01/26/18 14:30 01/27/18 03:22 Acetaminophen (Tylenol) 650 mg PRN Q6HRS PRN PO Headaches, Temp > 101.5F 01/26/18 16:15 Metoclopramide HCl (Reglan Vial) 10 mg PRN Q6HRS PRN IV NAUSEA/VOMITING 01/26/18 16:15 01/27/18 08:24 Ondansetron HCl (Zofran) 4 mg PRN Q8HRS PRN IV NAUSEA/VOMITING 01/26/18 16:15 01/26/18 17:28 DC Insulin Human Regular 150 unit/ Sodium Chloride 151.5 ml @ 0 mls/hr CONT PRN IV SEE I/O RECORD 01/26/18 16:30 01/26/18 16:48 Potassium Chloride 40 meq/ Dextrose/Sodium Chloride 1,020 ml @ 150 mls/hr Q6H48M IV 01/26/18 17:30 01/27/18 07:26 DC 01/27/18 00:34 Insulin Human Lispro (HumaLOG) 0-7 UNITS TIDWMEALS PRN SQ HYPERGLYCEMIA 01/26/18 18:15 01/27/18 04:48 Nicardipine HCl (Cardene) 25 mg STK-MED ONCE IV 01/27/18 03:14 01/27/18 03:15 DC Sodium Chloride 1,000 ml @ 100 mls/hr Q10H IV 01/27/18 07:30 01/27/18 09:45 DC 01/27/18 08:08 Sodium Chloride 1,000 ml @ 150 mls/hr Q6H40M IV 01/27/18 09:17 01/27/18 15:56 01/27/18 09:46 I & O 01/27/18 00:00 Intake Total 3325 ml Output Total 800 ml Balance 2525 ml Orders Procedure Category Date Status Time Code Status CODE 01/26/18 Complete 13:19 Vital Signs, Per [facility] 01/26/18 In Process Protocol 13:19 Advance Diet As [facility] 01/26/18 In Process Tolerated 13:19 Bed Rest With [facility] 01/26/18 In Process Bathroom Privile 13:19 Cbc W [facility] 01/27/18 Complete 06:00 Comprehensive LAB 01/27/18 Complete Metabolic Panel 06:00 Fentanyl Pf (Fentanyl PHA 01/26/18 In Process 2ml Vial) 13:30 Iv Normal Saline PHA 01/26/18 Complete 1,000ml (Iv Sodium 13:30 Glucose Poct Achs [facility] 01/26/18 In Process 13:19 Insulin Lispro PHA 01/26/18 Complete (Humalog) 17:00 Dextrose 50% PHA 01/26/18 In Process 13:30 Hydralazine PHA 01/26/18 Complete (Apresoline) 13:45 Insulin Lispro PHA 01/26/18 Complete (Humalog) 16:30 Insulin Lispro PHA 01/26/18 Complete (Humalog) 14:15 Labetalol (Normodyne) PHA 01/26/18 Complete 13:56 Labetalol (Normodyne) PHA 01/26/18 Complete 14:00 Nicardipine Hcl PHA 01/26/18 In Process (Cardene) 14:30 [place] Order ADT 01/26/18 Transmitted 15:15 Admit Orders ADT 01/26/18 Transmitted 16:14 Code Status CODE 01/26/18 Transmitted 16:14 Vital Signs, Per ADAM 01/26/18 In Process Protocol 16:14 Insert And Maintain Iv ADAM 01/26/18 In Process 16:14 Oxygen ADAM 01/26/18 In Process 16:14 Ambulate Ad Malgorzata ADAM 01/26/18 In Process 16:14 Glucose Poct Achs ADAM 01/26/18 In Process 16:14 Acetaminophen PHA 01/26/18 In Process (Tylenol) 16:15 Clear Liquid Diet DIET 01/26/18 Complete Dinner Pneumatic Compression ADAM 01/26/18 In Process Device 16:14 Metoclopramide Hcl PHA 01/26/18 In Process (Reglan Vial) 16:15 Ondansetron Pf PHA 01/26/18 Complete (Zofran) 16:15 Insulin Regular Vial PHA 01/26/18 In Process (Humulin R Vial) 16:30 Nurse To Perform Poct ADAM 01/26/18 In Process - Glucos 16:14 Hypoglycemia Protocol ADAM 01/26/18 In Process Adult 16:14 Mrsa By Pcr LAB 01/26/18 Complete 16:18 Iv Dextrose 5 PHA 01/26/18 Complete %-0.4... W/Potassium 17:30 Lipase LAB 01/27/18 Complete 05:00 Insulin Lispro PHA 01/26/18 In Process (Humalog) 18:15 Nicardipine Hcl PHA 01/27/18 Complete (Cardene) 03:14 Iv Normal Saline PHA 01/27/18 Complete 1,000ml (Iv Sodium 07:30 Nothing By Mouth DIET 01/27/18 Transmitted Lunch Iv Normal Saline PHA 01/27/18 In Process 1,000ml (Iv Sodium 09:17 Vital Signs Date Time Temp Pulse Resp B/P (MAP) Pulse Ox O2 Delivery O2 Flow Rate FiO2 01/27/18 12:37 18 Room Air 01/27/18 11:17 81 160/102 (121) 100 01/27/18 09:48 97.6 SUKI ALBERTO DO Jan 27, 2018 12:49
[2018-01-27] MEDS: ACETAMINOPHEN 325 MG TABLET PO PRN (16:21)
[2018-01-27] MEDS ORDERED: POTASSIUM CHLORIDE 40 MEQ in IV NORMAL SALINE 1,000ML 1,000 ML IV SCH (17:45)
[2018-01-27] MEDS: POTASSIUM CL 40MEQ IN 0.9%NACL 1,000 ML IV SCH (18:07)
[2018-01-27] MEDS ORDERED: PROCHLORPERAZINE 10 MG/2 ML VIAL. IV PRN (19:00)
[2018-01-27] MEDS: diphenhydrAMINE 50 MG/ML VIAL IVP PRN (20:35)
[2018-01-27] MEDS: MELATONIN 3 MG TABLET PO PRN (20:36)
[2018-01-28] VITALS (21 sets, daily range): BP systolic 129–205; BP diastolic 84–121
[2018-01-28] MEDS: POTASSIUM CL 40MEQ IN 0.9%NACL 1,000 ML IV SCH ×2 (00:09→06:06)
[2018-01-28] MEDS: diphenhydrAMINE 50 MG/ML VIAL IVP PRN ×3 (07:52→20:22)
[2018-01-28 08:56] LABS: BASO # 0.1 x10^3/uL (0.0-0.2); BASO % 1 % (0-3); EOS # 0.1 x10^3/uL (0.0-0.7); EOS % 2 % (0-3); HEMOGLOBIN 9.4 g/dL (12.0-15.5); LYMPH # 2.7 x10^3/uL (1.0-4.8); LYMPH % 32 % (24-48); MEAN CORPUSCULAR HEMOGLOBIN 29 pg (25-35); MEAN CORPUSCULAR HGB CONC 34 g/dL (31-37); MEAN CORPUSCULAR VOLUME 87 fL (79-100); MONO # 0.5 x10^3/uL (0.0-1.1); MONO % 7 % (0-9); NEUT # 4.8 x10^3uL (1.8-7.7); NEUT % 58 % (31-73); PLATELET COUNT 282 x10^3/uL (140-400); WHITE BLOOD COUNT 8.2 x10^3/uL (4.0-11.0)
[2018-01-28 09:19] LABS: ALBUMIN 2.5 g/dL (3.4-5.0); ALBUMIN/GLOBULIN RATIO 0.7 (1.0-1.7); CALCIUM 8.2 mg/dL (8.5-10.1); GFR 35.4; MAGNESIUM 1.5 mg/dL (1.8-2.4); TOTAL BILIRUBIN 0.2 mg/dL (0.2-1.0); TOTAL PROTEIN 6.2 g/dL (6.4-8.2)
[2018-01-28] MEDS ORDERED: MAGNESIUM SULFATE 2GM 50 ML IV ONE (10:15)
[2018-01-28] MEDS ORDERED: ELECTROLYTE (ICU) PROTOCOL. MC PRN (10:15)
[2018-01-28 10:33] LABS: POTASSIUM 6.1 mmol/L (3.5-5.1)
[2018-01-28] MEDS: SPIRONOLACTONE 25 MG TABLET PO SCH (10:52)
[2018-01-28] MEDS: FUROSEMIDE 80 MG TABLET PO SCH (10:52)
[2018-01-28] MEDS: PANTOPRAZOLE 40 MG TABLET. PO SCH (10:52)
[2018-01-28] MEDS: amLODIPine BESYLATE 10 MG TABLET PO SCH (10:53)
[2018-01-28] MEDS: CARVEDILOL 12.5 MG TABLET PO SCH ×2 (10:54→17:04)
[2018-01-28] MEDS: IV NORMAL SALINE 1,000ML 1,000 ML IV SCH ×2 (12:09→21:21)
[2018-01-28] MEDS: MAGNESIUM SULFATE 1GM 100 ML IV SCH ×2 (12:09→13:28)
[2018-01-28] MEDS: DICYCLOMINE HCL 10 MG CAPSULE PO SCH ×2 (13:42→20:22)
[2018-01-28] MEDS: hydrALAZINE 25 MG TABLET PO SCH ×2 (13:42→20:23)
[2018-01-28] MEDS: GABAPENTIN 100 MG CAPSULE. PO SCH ×2 (13:42→20:22)
[2018-01-28] MEDS: INSULIN LISPRO 300 UNITS/3 ML INSULN.PEN. SQ PRN (13:46)
[2018-01-28] MEDS: oxyCODONE IR 5 MG TABLET PO PRN ×2 (14:11→20:23)
--- NOTE | 2018-01-28 15:43 | PDOC ---
SUBJECTIVE: I found patient today sitting up in bed eating soft lunch with no abdominal pain , no nausea. She misses her 9 month old daughter staying with patient's mom and is eager for discharge to see her. No new complaints, her K+ 6.1 (patient is very diffiicult stick thought to be hemolyzed although recheck this afternoon K+ 5.5), BUN 10, Cr 2.0, glucose range 123-221, mg 1.5, lipase 297. She's on electrolyte protocol. Kidney function to pt baseline, lipase normalized, blood pressures improved so cardene drip d/c and home meds with addition of hydralazine 25mg tid initialized. Unfortunately her blood pressure rebounded off the drip and maintained elevated so she was not able to be d/c home. Pressures were elevated on d/c home this past week. She denies cp/sob/huerta /nausea/dizziness. OBJECTIVE: Problems: Problems Medical Problems: (1) Abdominal pain Status: Acute (2) Elevated blood pressure reading Status: Acute Vital Signs: Vital Signs Date Time Temp Pulse Resp B/P (MAP) Pulse Ox O2 Delivery O2 Flow Rate FiO2 01/28/18 15:20 Room Air 01/28/18 15:05 84 183/114 (137) 01/28/18 13:40 12 01/28/18 12:30 98.6 01/28/18 10:40 99 I & O Intake and Output 01/28/18 07:00 Intake Total 3450 ml Output Total 301 ml Balance 3149 ml Intake Oral 1180 ml IV Total 2270 ml Output Urine Total 300 ml Stool Total 1 ml # Voids 8 # Bowel Movements 3 Labs: Laboratory Tests Test 01/26/18 16:09 01/26/18 16:42 01/26/18 17:49 01/26/18 18:47 Nasal Screen MRSA (PCR) Negative (Negative) Glucose (Fingerstick) 247 mg/dL (70-99) 185 mg/dL (70-99) 149 mg/dL (70-99) Test 01/26/18 19:55 01/26/18 21:08 01/26/18 22:03 01/26/18 22:55 Glucose (Fingerstick) 112 mg/dL (70-99) 82 mg/dL (70-99) 86 mg/dL (70-99) 77 mg/dL (70-99) Test 01/26/18 23:59 01/27/18 01:07 01/27/18 02:22 01/27/18 03:11 Glucose (Fingerstick) 145 mg/dL (70-99) 188 mg/dL (70-99) 244 mg/dL (70-99) 272 mg/dL (70-99) Test 01/27/18 04:42 01/27/18 05:48 01/27/18 07:20 01/27/18 08:04 Glucose (Fingerstick) 268 mg/dL (70-99) 207 mg/dL (70-99) 37 mg/dL (70-99) White Blood Count 10.2 x10^3/uL (4.0-11.0) Red Blood Count 3.34 x10^6/uL (3.50-5.40) Hemoglobin 9.7 g/dL (12.0-15.5) Hematocrit 29.2 % (36.0-47.0) Mean Corpuscular Volume 87 fL (79-100) Mean Corpuscular Hemoglobin 29 pg (25-35) Mean Corpuscular Hemoglobin Concent 33 g/dL (31-37) Red Cell Distribution Width 14.8 % (11.5-14.5) Platelet Count 311 x10^3/uL (140-400) Neutrophils (%) (Auto) 61 % (31-73) Lymphocytes (%) (Auto) 31 % (24-48) Monocytes (%) (Auto) 6 % (0-9) Eosinophils (%) (Auto) 1 % (0-3) Basophils (%) (Auto) 1 % (0-3) Neutrophils # (Auto) 6.2 x10^3uL (1.8-7.7) Lymphocytes # (Auto) 3.2 x10^3/uL (1.0-4.8) Monocytes # (Auto) 0.6 x10^3/uL (0.0-1.1) Eosinophils # (Auto) 0.1 x10^3/uL (0.0-0.7) Basophils # (Auto) 0.1 x10^3/uL (0.0-0.2) Sodium Level 138 mmol/L (136-145) Potassium Level 3.8 mmol/L (3.5-5.1) Chloride Level 105 mmol/L (98-107) Carbon Dioxide Level 26 mmol/L (21-32) Anion Gap 7 (6-14) Blood Urea Nitrogen 13 mg/dL (7-20) Creatinine 2.1 mg/dL (0.6-1.0) Estimated GFR (Cockcroft-Gault) 33.5 BUN/Creatinine Ratio 6 (6-20) Glucose Level 80 mg/dL (70-99) Calcium Level 8.6 mg/dL (8.5-10.1) Total Bilirubin 0.1 mg/dL (0.2-1.0) Aspartate Amino Transf (AST/SGOT) 16 U/L (15-37) Alanine Aminotransferase (ALT/SGPT) 13 U/L (14-59) Alkaline Phosphatase 97 U/L (46-116) Total Protein 6.7 g/dL (6.4-8.2) Albumin 2.6 g/dL (3.4-5.0) Albumin/Globulin Ratio 0.6 (1.0-1.7) Lipase 456 U/L (73-393) Test 01/27/18 08:33 01/27/18 09:51 01/27/18 12:44 01/27/18 16:05 Glucose (Fingerstick) 131 mg/dL (70-99) 120 mg/dL (70-99) 107 mg/dL (70-99) 123 mg/dL (70-99) Test 01/27/18 20:38 01/28/18 02:17 01/28/18 06:11 01/28/18 08:44 Glucose (Fingerstick) 230 mg/dL (70-99) 123 mg/dL (70-99) 200 mg/dL (70-99) 217 mg/dL (70-99) White Blood Count 8.2 x10^3/uL (4.0-11.0) Red Blood Count 3.20 x10^6/uL (3.50-5.40) Hemoglobin 9.4 g/dL (12.0-15.5) Hematocrit 28.0 % (36.0-47.0) Mean Corpuscular Volume 87 fL (79-100) Mean Corpuscular Hemoglobin 29 pg (25-35) Mean Corpuscular Hemoglobin Concent 34 g/dL (31-37) Red Cell Distribution Width 15.0 % (11.5-14.5) Platelet Count 282 x10^3/uL (140-400) Neutrophils (%) (Auto) 58 % (31-73) Lymphocytes (%) (Auto) 32 % (24-48) Monocytes (%) (Auto) 7 % (0-9) Eosinophils (%) (Auto) 2 % (0-3) Basophils (%) (Auto) 1 % (0-3) Neutrophils # (Auto) 4.8 x10^3uL (1.8-7.7) Lymphocytes # (Auto) 2.7 x10^3/uL (1.0-4.8) Monocytes # (Auto) 0.5 x10^3/uL (0.0-1.1) Eosinophils # (Auto) 0.1 x10^3/uL (0.0-0.7) Basophils # (Auto) 0.1 x10^3/uL (0.0-0.2) Sodium Level 135 mmol/L (136-145) Potassium Level 6.1 mmol/L (3.5-5.1) Chloride Level 107 mmol/L (98-107) Carbon Dioxide Level 21 mmol/L (21-32) Anion Gap 7 (6-14) Blood Urea Nitrogen 10 mg/dL (7-20) Creatinine 2.0 mg/dL (0.6-1.0) Estimated GFR (Cockcroft-Gault) 35.4 BUN/Creatinine Ratio 5 (6-20) Glucose Level 221 mg/dL (70-99) Calcium Level 8.2 mg/dL (8.5-10.1) Magnesium Level 1.5 mg/dL (1.8-2.4) Total Bilirubin 0.2 mg/dL (0.2-1.0) Aspartate Amino Transf (AST/SGOT) 18 U/L (15-37) Alanine Aminotransferase (ALT/SGPT) 14 U/L (14-59) Alkaline Phosphatase 98 U/L (46-116) Total Protein 6.2 g/dL (6.4-8.2) Albumin 2.5 g/dL (3.4-5.0) Albumin/Globulin Ratio 0.7 (1.0-1.7) Lipase 297 U/L (73-393) Test 01/28/18 13:26 Glucose (Fingerstick) 328 mg/dL (70-99) ASSESSMENT: Pancreatitis: improved, no pain tolerating PO lipase 297 Uncontrolled HTN: at this point I feel Cardiology Consultation appropriate for optimal BP control inpatient and upon discharge Uncontrolled DM1: insulin drip DM Gastroparesis: no pain, N/V, patient has expressed teachability as to dietary alterations moving forward on discharge PATTIE on CKD: resolved to patient's baseline Cr 2.0 Hyperkalemia: recheck K+ 5.5 she's asymptomatic Hypomagnesemia: recheck in am SUKI ALBERTO DO Jan 28, 2018 15:43
[2018-01-28 16:01] LABS: CALCIUM 8.2 mg/dL (8.5-10.1); CREATININE 2.1 mg/dL (0.6-1.0); GFR 33.5; POTASSIUM 5.5 mmol/L (3.5-5.1)
[2018-01-28] MEDS ORDERED: diphenhydrAMINE 50 MG/ML VIAL IVP ONE (16:45)
[2018-01-28] MEDS ORDERED: CARVEDILOL 12.5 MG TABLET PO SCH (17:00)
[2018-01-28] MEDS ORDERED: OXYC5CAP PO (17:30)
[2018-01-28] MEDS ORDERED: HYDR-2868 PO (17:30)
[2018-01-28] MEDS: MELATONIN 3 MG TABLET PO PRN (20:22)
[2018-01-29] VITALS (7 sets, daily range): BP systolic 114–212; BP diastolic 73–135
[2018-01-29] MEDS: METOCLOPRAMIDE HCL 10 MG/2 ML VIAL. IV PRN (02:02)
[2018-01-29] MEDS: oxyCODONE IR 5 MG TABLET PO PRN ×4 (04:09→23:03)
[2018-01-29] MEDS: diphenhydrAMINE 50 MG/ML VIAL IVP PRN ×4 (04:09→23:03)
[2018-01-29] MEDS: IV NORMAL SALINE 1,000ML 1,000 ML IV SCH ×3 (06:15→19:23)
[2018-01-29] MEDS: CARVEDILOL 12.5 MG TABLET PO SCH (06:19)
[2018-01-29] MEDS: hydrALAZINE 25 MG TABLET PO SCH ×3 (06:21→20:23)
[2018-01-29 06:56] LABS: BASO # 0.1 x10^3/uL (0.0-0.2); BASO % 1 % (0-3); EOS # 0.2 x10^3/uL (0.0-0.7); EOS % 3 % (0-3); HEMATOCRIT 28.8 % (36.0-47.0); HEMOGLOBIN 9.5 g/dL (12.0-15.5); LYMPH # 2.7 x10^3/uL (1.0-4.8); LYMPH % 32 % (24-48); MEAN CORPUSCULAR HEMOGLOBIN 29 pg (25-35); MEAN CORPUSCULAR HGB CONC 33 g/dL (31-37); MEAN CORPUSCULAR VOLUME 88 fL (79-100); MONO # 0.6 x10^3/uL (0.0-1.1); MONO % 7 % (0-9); NEUT # 4.7 x10^3uL (1.8-7.7); NEUT % 57 % (31-73); PLATELET COUNT 294 x10^3/uL (140-400); RED BLOOD COUNT 3.28 x10^6/uL (3.50-5.40); RED CELL DISTRIBUTION WIDTH 15.1 % (11.5-14.5); WHITE BLOOD COUNT 8.3 x10^3/uL (4.0-11.0)
[2018-01-29 07:21] LABS: ALBUMIN 2.7 g/dL (3.4-5.0); ALBUMIN/GLOBULIN RATIO 0.7 (1.0-1.7); CALCIUM 8.3 mg/dL (8.5-10.1); CREATININE 2.2 mg/dL (0.6-1.0); GFR 31.7; MAGNESIUM 1.8 mg/dL (1.8-2.4); POTASSIUM 4.9 mmol/L (3.5-5.1); TOTAL BILIRUBIN 0.2 mg/dL (0.2-1.0); TOTAL PROTEIN 6.6 g/dL (6.4-8.2)
[2018-01-29] MEDS: DICYCLOMINE HCL 10 MG CAPSULE PO SCH ×3 (08:41→20:22)
[2018-01-29] MEDS: PANTOPRAZOLE 40 MG TABLET. PO SCH (08:41)
[2018-01-29] MEDS: FUROSEMIDE 80 MG TABLET PO SCH (08:41)
[2018-01-29] MEDS: GABAPENTIN 100 MG CAPSULE. PO SCH ×3 (08:42→20:22)
[2018-01-29] MEDS: amLODIPine BESYLATE 10 MG TABLET PO SCH (08:42)
[2018-01-29] MEDS: SPIRONOLACTONE 25 MG TABLET PO SCH (08:42)
[2018-01-29] MEDS: LABETALOL HCL 100 MG TABLET PO SCH ×2 (11:10→20:23)
--- NOTE | 2018-01-29 13:06 | PDOC2 ---
AN[employer] DATA OFFICER 01/29/18 1306: CONSULT Date of Admission DATE: 01/29/18 TIME: 12:32 Reason for Consult: accelerated hypertension Problem List Problems Medical Problems: (1) Abdominal pain Status: Acute (2) Elevated blood pressure reading Status: Acute History of Present Illness Ms Escobar is a 32 year old female with history of uncontrolled hypertension, type 1 diabetes, chronic kidney disease, cyclic vomiting, chronic pancreatitis and diabetic gastroparesis. She additionally apparently has a history of non compliance with medications and marijuana use. She presented to the ED with complaints of severe abdominal pain radiating to her back, nausea and vomiting. She reported uncontrolled blood sugars, decreased oral intake and anxiety. She was noted to have significantly elevated blood pressure, 270/103 mmHg, and was admitted on Cardene on 01/26/18 as well as her oral antihypertensives. Cardene was discontinued yesterday. Blood pressures remain elevated and this morning consult was called. She continues to complain of abdominal discomfort, denies chest pain, dyspnea, palpitations, lightheadedness or syncope. Past Medical History type 1 diabetes mellitus, hypertension, preeclampsia, diabetic gastroparesis, chronic kidney disease, diabetic and hypertensive nephropathy. Past Surgical History , cholecystectomy, EGD. Family History type 2 diabetes, sickle cell trait Social History single, has one daughter. Smokes half a pack a day, denies alcohol, history of occasional marijuana use. She is on disability. Current Medications Current Medications Sodium Chloride 1,000 ml @ 1,000 mls/hr 1X ONCE IV Last administered on at 11:50; Start 01/26/18 at 11:30; Stop 01/26/18 at 12:29; Status DC Fentanyl Citrate (Fentanyl 5ml Vial) 50 mcg 1X ONCE IV ; Start 01/26/18 at 12: 00; Stop 01/26/18 at 12:01; Status DC Metoclopramide HCl (Reglan Vial) 10 mg 1X ONCE IV Last administered on at 11:51; Start 01/26/18 at 11:30; Stop 01/26/18 at 11:53; Status DC Lorazepam (Ativan) 2 mg 1X ONCE IV Last administered on 01/26/18at 11:51; Start 01/26/18 at 11:30; Stop 01/26/18 at 11:53; Status DC Fentanyl Citrate (Fentanyl 2ml Vial) 100 mcg STK-MED ONCE .ROUTE ; Start at 11:47; Stop 01/26/18 at 11:48; Status DC Fentanyl Citrate (Fentanyl 2ml Vial) 50 mcg 1X ONCE IV Last administered on 04/04at 11:56; Start 01/26/18 at 12:00; Stop 01/26/18 at 12:01; Status DC Fentanyl Citrate (Fentanyl 2ml Vial) 50 mcg PRN Q2HR PRN IV PAIN Last administered on 01/27/18at 12:37; Start 01/26/18 at 13:30; Stop 01/27/18 at 13:29 ; Status DC Sodium Chloride 1,000 ml @ 200 mls/hr Q5H IV ; Start 01/26/18 at 13:30; Stop at 17:26; Status DC Insulin Human Lispro (HumaLOG) 0-7 UNITS TIDWMEALS SQ ; Start 01/26/18 at 17:00 ; Stop 01/26/18 at 18:13; Status DC Dextrose 12.5 gm PRN Q15MIN PRN IV SEE COMMENTS; Start 01/26/18 at 13:30 Hydralazine HCl (Apresoline) 20 mg 1X ONCE IV ; Start 01/26/18 at 13:45; Stop 01/26/18 at 13:52; Status DC Insulin Human Lispro (HumaLOG) 10 units TIDAC SQ ; Start 01/26/18 at 16:30; Stop 01/26/18 at 16:30; Status DC Insulin Human Lispro (HumaLOG) 10 units 1X ONCE SQ Last administered on at 14:01; Start 01/26/18 at 14:15; Stop 01/26/18 at 14:16; Status DC Labetalol HCl (Normodyne) 20 mg 1X ONCE IV Last administered on 01/26/18at 14: 04; Start 01/26/18 at 14:00; Stop 01/26/18 at 14:01; Status DC Labetalol HCl (Normodyne) 100 mg STK-MED ONCE IV ; Start 01/26/18 at 13:56; Stop 01/26/18 at 13:57; Status DC Nicardipine HCl 50 mg/Sodium Chloride 270 ml @ 0 mls/hr CONT PRN IV SEE I/O RECORD Last administered on 01/28/18 00:08; Start 01/26/18 at 14:30 Acetaminophen (Tylenol) 650 mg PRN Q6HRS PRN PO Headaches, Temp > 101.5F Last administered on 01/27/18at 16:21; Start 01/26/18 at 16:15 Metoclopramide HCl (Reglan Vial) 10 mg PRN Q6HRS PRN IV NAUSEA/VOMITING Last administered on 01/29/18at 02:02; Start 01/26/18 at 16:15 Ondansetron HCl (Zofran) 4 mg PRN Q8HRS PRN IV NAUSEA/VOMITING; Start 01/26/18 at 16:15; Stop 01/26/18 at 17:28; Status DC Insulin Human Regular 150 unit/ Sodium Chloride 151.5 ml @ 0 mls/hr CONT PRN IV SEE I/O RECORD Last administered on 01/26/18at 16:48; Start 01/26/18 at 16:30 Potassium Chloride 40 meq/ Dextrose/Sodium Chloride 1,020 ml @ 150 mls/hr Q6H48M IV Last administered on 01/27/18at 00:34; Start 01/26/18 at 17:30; Stop 01/27/18 at 07:26; Status DC Insulin Human Lispro (HumaLOG) 0-7 UNITS TIDWMEALS PRN SQ HYPERGLYCEMIA Last administered on 01/28/18at 13:46; Start 01/26/18 at 18:15 Nicardipine HCl (Cardene) 25 mg STK-MED ONCE IV ; Start 01/27/18 at 03:14; Stop 01/27/18 at 03:15; Status DC Sodium Chloride 1,000 ml @ 100 mls/hr Q10H IV Last administered on 01/27/18at 08:08; Start 01/27/18 at 07:30; Stop 01/27/18 at 09:45; Status DC Sodium Chloride 1,000 ml @ 150 mls/hr Q6H40M IV Last administered on at 09:46; Start 01/27/18 at 09:17; Stop 01/27/18 at 15:56; Status DC Fentanyl Citrate (Fentanyl 2ml Vial) 50 mcg PRN Q2HR PRN IV PAIN Last administered on 01/27/18at 14:57; Start 01/27/18 at 14:30; Stop 01/27/18 at 17:21 ; Status DC Fentanyl Citrate (Fentanyl 2ml Vial) 75 mcg PRN Q2HR PRN IV PAIN Last administered on 01/29/18at 07:58; Start 01/27/18 at 17:15 Potassium Chloride 40 meq/ Sodium Chloride 1,020 ml @ 150 mls/hr Q6H48M IV ; Start 01/27/18 at 17:45; Stop 01/27/18 at 17:45; Status DC Potassium Chloride/Sodium Chloride 1,000 ml @ 150 mls/hr Q6H40M IV Last administered on 01/28/18at 06:06; Start 01/27/18 at 17:45; Stop 01/28/18 at 10:52 ; Status DC Prochlorperazine Edisylate (Compazine) 10 mg PRN Q6HRS PRN IV NAUSEA/VOMITING; Start 01/27/18 at 19:00 Melatonin 3 mg PRN QHS PRN PO INSOMNIA Last administered on 01/28/18at 20:22; Start 01/27/18 at 19:15 Diphenhydramine HCl (Benadryl) 25 mg PRN Q6HRS PRN IVP ITCHING Last administered on 01/28/18at 14:11; Start 01/27/18 at 19:15; Stop 01/28/18 at 16:41 ; Status DC Sodium Chloride 1,000 ml @ 100 mls/hr Q10H IV Last administered on 01/28/18at 21:21; Start 01/28/18 at 10:15 Info ([facility] Electrolyte Protocol) 1 ea CONT PRN PRN MC PER PROTOCOL; Start at 10:15 Magnesium Sulfate 50 ml @ 25 mls/hr 1X ONCE IV ; Start 01/28/18 at 10:15; Stop 01/28/18 at 12:14; Status UNV Gabapentin (Neurontin) 100 mg TID PO Last administered on 01/29/18at 08:42; Start 01/28/18 at 14:00 Amlodipine Besylate (Norvasc) 10 mg DAILY PO Last administered on 01/29/18at 08: 42; Start 01/28/18 at 11:00; Stop 01/29/18 at 10:59; Status DC Carvedilol (Coreg) 12.5 mg BIDWMEALS PO ; Start 01/28/18 at 17:00; Stop at 17:00; Status DC Dicyclomine HCl (Bentyl) 10 mg TID PO Last administered on 01/29/18at 08:41; Start 01/28/18 at 14:00 Furosemide (Lasix) 80 mg DAILY PO Last administered on 01/29/18at 08:41; Start 01/28/18 at 11:00 Pantoprazole Sodium (Protonix) 40 mg DAILYAC PO Last administered on 01/29/18 08:41; Start 01/28/18 at 11:00 Spironolactone (Aldactone) 50 mg DAILY PO Last administered on 01/29/18at 08:42 ; Start 01/28/18 at 11:00 Magnesium Sulfate 100 ml @ 100 mls/hr Q1H IV Last administered on 01/28/18at 13 :28; Start 01/28/18 at 10:45; Stop 01/28/18 at 12:44; Status DC Carvedilol (Coreg) 12.5 mg BIDWMEALS PO Last administered on 01/29/18 06:19; Start 01/28/18 at 10:45; Stop 01/29/18 at 10:59; Status DC Hydralazine HCl (Apresoline) 25 mg TID PO Last administered on 01/29/18at 06:21 ; Start 01/28/18 at 13:15 Oxycodone HCl (Roxicodone) 10 mg PRN Q6HRS PRN PO PAIN Last administered on 11:19; Start 01/28/18 at 13:15 Diphenhydramine HCl (Benadryl) 25 mg 1X ONCE IVP Last administered on at 16:43; Start 01/28/18 at 16:45; Stop 01/28/18 at 16:46; Status DC Diphenhydramine HCl (Benadryl) 50 mg PRN Q6HRS PRN IVP ITCHING Last administered on 01/29/18at 11:21; Start 01/28/18 at 22:45 Labetalol HCl (Trandate) 100 mg BID PO Last administered on 01/29/18at 11:10; Start 01/29/18 at 11:15 Nifedipine (Procardia Xl) 90 mg 1X ONCE PO Last administered on 01/29/18at 11: 19; Start 01/29/18 at 11:00; Stop 01/29/18 at 11:08; Status DC Active Scripts Active Protonix (Pantoprazole Sodium) 40 Mg Tablet.dr 1 Tab PO DAILY 30 Days Neurontin (Gabapentin) 100 Mg Capsule 100 Mg PO TID 30 Days Dicyclomine Hcl 10 Mg Capsule 1 Cap PO TID Reported Oxycodone Hcl 5 Mg Capsule 1 Cap PO QID PRN Hydralazine Hcl 25 Mg Tablet 1 Tab PO TID Aldactone (Spironolactone) 50 Mg Tablet 1 Tab PO DAILY LAST DOSE GIVEN: DATE: TIME: NEXT DOSE DUE: DATE: TIME: Lasix (Furosemide) 80 Mg Tablet 1 Tab PO DAILY LAST DOSE GIVEN: DATE: TIME: NEXT DOSE DUE: DATE: TIME: Coreg (Carvedilol) 12.5 Mg Tablet 1 Tab PO BID LAST DOSE GIVEN: DATE: TIME: NEXT DOSE DUE: DATE: TIME: Novolog Flexpen (Insulin Aspart) 100 Unit/1 Ml Insuln.pen 10 Unit SQ TIDWMEALS LAST DOSE GIVEN: DATE: TIME: NEXT DOSE DUE: DATE: TIME: Lantus Solostar (Insulin Glargine,Hum.rec.anlog) 100 Unit/1 Ml Insuln.pen 10 Unit SQ DAILY LAST DOSE GIVEN: DATE: TIME: NEXT DOSE DUE: DATE: TIME: Norvasc (Amlodipine Besylate) 10 Mg Tablet 1 Tab PO DAILY LAST DOSE GIVEN: DATE: TIME: NEXT DOSE DUE: DATE: TIME: Proair Hfa Inhaler (Albuterol Sulfate) 8.5 Gm Hfa.aer.ad 2 Puff INH PRN Q6HRS LAST DOSE GIVEN: DATE: TIME: NEXT DOSE DUE: DATE: TIME: Allergies: Coded Allergies: ketorolac (Verified Allergy, Intermediate, 01/29/18) morphine (Verified Allergy, Intermediate, Unknown, 01/29/18) ondansetron (Verified Allergy, Intermediate, Itching, 01/29/18) Review of System as per HPI General: Alert, Oriented X3, Cooperative, mild distress HEENT: Atraumatic, EOMI Lungs: Clear to auscultation, Normal air movement Heart: Regular rate, Normal S1, Normal S2 Abdomen: Normal bowel sounds, Other (tenderness) Extremities: No cyanosis, Normal pulses Neuro: Normal speech, Strength at 5/5 X4 ext Psych/Mental Status: Mental status NL, Mood NL VITALS Vital Signs Date Time Temp Pulse Resp B/P (MAP) Pulse Ox O2 Delivery O2 Flow Rate FiO2 01/29/18 12:22 99 Room Air 01/29/18 11:19 82 176/124 01/29/18 06:00 97.6 18 Labs Laboratory Tests Test 01/27/18 12:44 01/27/18 16:05 01/27/18 20:38 01/28/18 02:17 Glucose (Fingerstick) 107 mg/dL (70-99) 123 mg/dL (70-99) 230 mg/dL (70-99) 123 mg/dL (70-99) Test 01/28/18 06:11 01/28/18 08:44 01/28/18 13:26 01/28/18 15:40 Glucose (Fingerstick) 200 mg/dL (70-99) 217 mg/dL (70-99) 328 mg/dL (70-99) White Blood Count 8.2 x10^3/uL (4.0-11.0) Red Blood Count 3.20 x10^6/uL (3.50-5.40) Hemoglobin 9.4 g/dL (12.0-15.5) Hematocrit 28.0 % (36.0-47.0) Mean Corpuscular Volume 87 fL (79-100) Mean Corpuscular Hemoglobin 29 pg (25-35) Mean Corpuscular Hemoglobin Concent 34 g/dL (31-37) Red Cell Distribution Width 15.0 % (11.5-14.5) Platelet Count 282 x10^3/uL (140-400) Neutrophils (%) (Auto) 58 % (31-73) Lymphocytes (%) (Auto) 32 % (24-48) Monocytes (%) (Auto) 7 % (0-9) Eosinophils (%) (Auto) 2 % (0-3) Basophils (%) (Auto) 1 % (0-3) Neutrophils # (Auto) 4.8 x10^3uL (1.8-7.7) Lymphocytes # (Auto) 2.7 x10^3/uL (1.0-4.8) Monocytes # (Auto) 0.5 x10^3/uL (0.0-1.1) Eosinophils # (Auto) 0.1 x10^3/uL (0.0-0.7) Basophils # (Auto) 0.1 x10^3/uL (0.0-0.2) Sodium Level 135 mmol/L (136-145) 133 mmol/L (136-145) Potassium Level 6.1 mmol/L (3.5-5.1) 5.5 mmol/L (3.5-5.1) Chloride Level 107 mmol/L (98-107) 105 mmol/L (98-107) Carbon Dioxide Level 21 mmol/L (21-32) 22 mmol/L (21-32) Anion Gap 7 (6-14) 6 (6-14) Blood Urea Nitrogen 10 mg/dL (7-20) 10 mg/dL (7-20) Creatinine 2.0 mg/dL (0.6-1.0) 2.1 mg/dL (0.6-1.0) Estimated GFR (Cockcroft-Gault) 35.4 33.5 BUN/Creatinine Ratio 5 (6-20) Glucose Level 221 mg/dL (70-99) 228 mg/dL (70-99) Calcium Level 8.2 mg/dL (8.5-10.1) 8.2 mg/dL (8.5-10.1) Magnesium Level 1.5 mg/dL (1.8-2.4) Total Bilirubin 0.2 mg/dL (0.2-1.0) Aspartate Amino Transf (AST/SGOT) 18 U/L (15-37) Alanine Aminotransferase (ALT/SGPT) 14 U/L (14-59) Alkaline Phosphatase 98 U/L (46-116) Total Protein 6.2 g/dL (6.4-8.2) Albumin 2.5 g/dL (3.4-5.0) Albumin/Globulin Ratio 0.7 (1.0-1.7) Lipase 297 U/L (73-393) Test 01/28/18 17:42 01/28/18 20:33 01/29/18 06:15 01/29/18 12:06 Glucose (Fingerstick) 185 mg/dL (70-99) 175 mg/dL (70-99) 211 mg/dL (70-99) White Blood Count 8.3 x10^3/uL (4.0-11.0) Red Blood Count 3.28 x10^6/uL (3.50-5.40) Hemoglobin 9.5 g/dL (12.0-15.5) Hematocrit 28.8 % (36.0-47.0) Mean Corpuscular Volume 88 fL (79-100) Mean Corpuscular Hemoglobin 29 pg (25-35) Mean Corpuscular Hemoglobin Concent 33 g/dL (31-37) Red Cell Distribution Width 15.1 % (11.5-14.5) Platelet Count 294 x10^3/uL (140-400) Neutrophils (%) (Auto) 57 % (31-73) Lymphocytes (%) (Auto) 32 % (24-48) Monocytes (%) (Auto) 7 % (0-9) Eosinophils (%) (Auto) 3 % (0-3) Basophils (%) (Auto) 1 % (0-3) Neutrophils # (Auto) 4.7 x10^3uL (1.8-7.7) Lymphocytes # (Auto) 2.7 x10^3/uL (1.0-4.8) Monocytes # (Auto) 0.6 x10^3/uL (0.0-1.1) Eosinophils # (Auto) 0.2 x10^3/uL (0.0-0.7) Basophils # (Auto) 0.1 x10^3/uL (0.0-0.2) Sodium Level 134 mmol/L (136-145) Potassium Level 4.9 mmol/L (3.5-5.1) Chloride Level 104 mmol/L (98-107) Carbon Dioxide Level 23 mmol/L (21-32) Anion Gap 7 (6-14) Blood Urea Nitrogen 10 mg/dL (7-20) Creatinine 2.2 mg/dL (0.6-1.0) Estimated GFR (Cockcroft-Gault) 31.7 BUN/Creatinine Ratio 5 (6-20) Glucose Level 171 mg/dL (70-99) Calcium Level 8.3 mg/dL (8.5-10.1) Magnesium Level 1.8 mg/dL (1.8-2.4) Total Bilirubin 0.2 mg/dL (0.2-1.0) Aspartate Amino Transf (AST/SGOT) 15 U/L (15-37) Alanine Aminotransferase (ALT/SGPT) 16 U/L (14-59) Alkaline Phosphatase 102 U/L (46-116) Total Protein 6.6 g/dL (6.4-8.2) Albumin 2.7 g/dL (3.4-5.0) Albumin/Globulin Ratio 0.7 (1.0-1.7) Lipase 341 U/L (73-393) Images CT abd pelvis 01/17/18 - IMPRESSION: Diffuse colitis. abd series 01/17/18 - IMPRESSION: 1. No acute cardiopulmonary findings. 2. Unremarkable gas pattern. Assessment/Plan 1. Accelerated hypertension on multiple medications. Unclear if secondary workup completed, will request records from . Will start secondary workup in the interim. Change carvedilol to labetolol for improved systolic reduction, change amlodipine to nifidepine. Will try to keep antihypertensives to 24hour medications if possible to improve compliance. No BARBARA/ARB at this time due to Cr 2.2. Suggest nephrology evaluation and outpatient follow up. titrate labetolol tomorrow if pressure remains elevated. Consider addition of alpha shai ie Cardura, if necessary. Avoid clonidine due to rebound hypertension. 2. CKD - Cr appears to be baseline 1.9-2.2 based on last 1 yr labs reviewed here. 3. diabetes mellitus type 1. aggressive control. ? candidate for insulin pump. mgmt per PCP. 4. abdominal pain - recent diagnosis chronic pancreatitis?, CT 01/17 with diffuse colitis. Mgmt per PCP ANITA HOFFMANN MD 01/29/18 1748: CONSULT Assessment/Plan The patient was seen and examined. Accelerated HTN. Improved today. Uncertain compliance. Medication adjustment as above. Apparent recent work up at and will obtain records. CKD. Creat 1.9 to 2.2 Continue BP control. Renal evaluation as an outpatient. DM. As per the primary service. Abdominal pain. Improved. Recent evaluation at . As per the primary service. Thank you for allowing us to participate in the care of your patient. GAMAL OCONNELL APRN Jan 29, 2018 13:06 ANITA HOFFMANN MD Jan 29, 2018 17:48
--- NOTE | 2018-01-29 13:29 | PDOC ---
SUBJECTIVE: Patient complains of insomnia overnight, lack of sleep she feels is taking her anxious. She continues to tolerate a soft diet and denies any nausea and on my evaluation denies abdominal pain. Blood pressures improved somewhat overnight with the change to oral home medications plus hydralazine 25 mg 3 times a day, pressure this morning 189/109. Hemoglobin remained stable 9.5 and creatinine 2.2 both appear to be at her baseline. Glucose 171 lipase 341. Nursing advises that cardiology has ordered an echocardiogram and antihypertensive medication changes will also be implemented. OBJECTIVE: Problems: Problems Medical Problems: (1) Abdominal pain Status: Acute (2) Elevated blood pressure reading Status: Acute Vital Signs: Vital Signs Date Time Temp Pulse Resp B/P (MAP) Pulse Ox O2 Delivery O2 Flow Rate FiO2 01/29/18 12:22 99 Room Air 01/29/18 11:19 82 176/124 01/29/18 06:00 97.6 18 I & O Intake and Output 01/29/18 07:00 Intake Total 3000 ml Balance 3000 ml Intake Oral 2500 ml IV Total 500 ml # Voids 8 # Bowel Movements 1 Labs: Laboratory Tests Test 01/27/18 16:05 01/27/18 20:38 01/28/18 02:17 01/28/18 06:11 Glucose (Fingerstick) 123 mg/dL (70-99) 230 mg/dL (70-99) 123 mg/dL (70-99) 200 mg/dL (70-99) Test 01/28/18 08:44 01/28/18 13:26 01/28/18 15:40 01/28/18 17:42 White Blood Count 8.2 x10^3/uL (4.0-11.0) Red Blood Count 3.20 x10^6/uL (3.50-5.40) Hemoglobin 9.4 g/dL (12.0-15.5) Hematocrit 28.0 % (36.0-47.0) Mean Corpuscular Volume 87 fL (79-100) Mean Corpuscular Hemoglobin 29 pg (25-35) Mean Corpuscular Hemoglobin Concent 34 g/dL (31-37) Red Cell Distribution Width 15.0 % (11.5-14.5) Platelet Count 282 x10^3/uL (140-400) Neutrophils (%) (Auto) 58 % (31-73) Lymphocytes (%) (Auto) 32 % (24-48) Monocytes (%) (Auto) 7 % (0-9) Eosinophils (%) (Auto) 2 % (0-3) Basophils (%) (Auto) 1 % (0-3) Neutrophils # (Auto) 4.8 x10^3uL (1.8-7.7) Lymphocytes # (Auto) 2.7 x10^3/uL (1.0-4.8) Monocytes # (Auto) 0.5 x10^3/uL (0.0-1.1) Eosinophils # (Auto) 0.1 x10^3/uL (0.0-0.7) Basophils # (Auto) 0.1 x10^3/uL (0.0-0.2) Sodium Level 135 mmol/L (136-145) 133 mmol/L (136-145) Potassium Level 6.1 mmol/L (3.5-5.1) 5.5 mmol/L (3.5-5.1) Chloride Level 107 mmol/L (98-107) 105 mmol/L (98-107) Carbon Dioxide Level 21 mmol/L (21-32) 22 mmol/L (21-32) Anion Gap 7 (6-14) 6 (6-14) Blood Urea Nitrogen 10 mg/dL (7-20) 10 mg/dL (7-20) Creatinine 2.0 mg/dL (0.6-1.0) 2.1 mg/dL (0.6-1.0) Estimated GFR (Cockcroft-Gault) 35.4 33.5 BUN/Creatinine Ratio 5 (6-20) Glucose Level 221 mg/dL (70-99) 228 mg/dL (70-99) Glucose (Fingerstick) 217 mg/dL (70-99) 328 mg/dL (70-99) 185 mg/dL (70-99) Calcium Level 8.2 mg/dL (8.5-10.1) 8.2 mg/dL (8.5-10.1) Magnesium Level 1.5 mg/dL (1.8-2.4) Total Bilirubin 0.2 mg/dL (0.2-1.0) Aspartate Amino Transf (AST/SGOT) 18 U/L (15-37) Alanine Aminotransferase (ALT/SGPT) 14 U/L (14-59) Alkaline Phosphatase 98 U/L (46-116) Total Protein 6.2 g/dL (6.4-8.2) Albumin 2.5 g/dL (3.4-5.0) Albumin/Globulin Ratio 0.7 (1.0-1.7) Lipase 297 U/L (73-393) Test 01/28/18 20:33 01/29/18 06:15 01/29/18 12:06 Glucose (Fingerstick) 175 mg/dL (70-99) 211 mg/dL (70-99) White Blood Count 8.3 x10^3/uL (4.0-11.0) Red Blood Count 3.28 x10^6/uL (3.50-5.40) Hemoglobin 9.5 g/dL (12.0-15.5) Hematocrit 28.8 % (36.0-47.0) Mean Corpuscular Volume 88 fL (79-100) Mean Corpuscular Hemoglobin 29 pg (25-35) Mean Corpuscular Hemoglobin Concent 33 g/dL (31-37) Red Cell Distribution Width 15.1 % (11.5-14.5) Platelet Count 294 x10^3/uL (140-400) Neutrophils (%) (Auto) 57 % (31-73) Lymphocytes (%) (Auto) 32 % (24-48) Monocytes (%) (Auto) 7 % (0-9) Eosinophils (%) (Auto) 3 % (0-3) Basophils (%) (Auto) 1 % (0-3) Neutrophils # (Auto) 4.7 x10^3uL (1.8-7.7) Lymphocytes # (Auto) 2.7 x10^3/uL (1.0-4.8) Monocytes # (Auto) 0.6 x10^3/uL (0.0-1.1) Eosinophils # (Auto) 0.2 x10^3/uL (0.0-0.7) Basophils # (Auto) 0.1 x10^3/uL (0.0-0.2) Sodium Level 134 mmol/L (136-145) Potassium Level 4.9 mmol/L (3.5-5.1) Chloride Level 104 mmol/L (98-107) Carbon Dioxide Level 23 mmol/L (21-32) Anion Gap 7 (6-14) Blood Urea Nitrogen 10 mg/dL (7-20) Creatinine 2.2 mg/dL (0.6-1.0) Estimated GFR (Cockcroft-Gault) 31.7 BUN/Creatinine Ratio 5 (6-20) Glucose Level 171 mg/dL (70-99) Calcium Level 8.3 mg/dL (8.5-10.1) Magnesium Level 1.8 mg/dL (1.8-2.4) Total Bilirubin 0.2 mg/dL (0.2-1.0) Aspartate Amino Transf (AST/SGOT) 15 U/L (15-37) Alanine Aminotransferase (ALT/SGPT) 16 U/L (14-59) Alkaline Phosphatase 102 U/L (46-116) Total Protein 6.6 g/dL (6.4-8.2) Albumin 2.7 g/dL (3.4-5.0) Albumin/Globulin Ratio 0.7 (1.0-1.7) Lipase 341 U/L (73-393) ASSESSMENT: Hypertensive urgency, now uncontrolled hypertension Acute pancreatitis AK I on CKD Uncontrolled diabetes Cyclic vomiting PLAN: Downgrade to telemetry status Antihypertensive medication changes and echocardiogram per cardiology Continue present treatment SUKI ALBERTO DO Jan 29, 2018 13:29
--- NOTE | 2018-01-29 15:50 | RAD ---
MR#: [id number] Date of Study: 01/29/2018 Ordering Physician: GAMAL OCONNELL, Referring Physician: SUKI ALBERTO, Tech: Steffanie Louis RDMS, SHARMINT, RTR APPROVED REPORT Patient Location: IN-PATIENT Indications Uncontrolled HTN Grayscale images of the kidneys are limited bilaterally due to technical factors but grossly no obvio us pathology is noted. The right kidney measures 9.6 x 4.2 x 4 cm and the left kidney measures 10.8 x 5.0 x 4.0 cm. The spectral waveforms in the proximal mid and distal renal arteries bilaterally are within normal li mits. Resistive indices are also within normal limits. Aortic velocities are grossly within normal li mits with normal renal to aortic ratios bilaterally. Renal Artery Doppler Right Renal Artery Left Renal Arter y Proximal 87.0/ cm/secProximal 79.0/ cm/sec Mid 106.0/ cm/secMid 90.0/ cm/sec Distal 56.0/ cm/secDistal 133.0/ cm/sec Renal/Aorta Ratio 0.84Renal/Aorta Ratio 1.05 Prox. Resistive Index .67Prox. Resistive Index .63 Mid Resistive Index .63Mid Resistive Index .63 Distal Resistive Index .63Distal Resistive Index .63 Rt. Segmental A. 18.0/ cm/secLt. Segmental A. 20.0/ cm/sec Renal Measurements RightLeft Kidney Length9.64 cm cmKidney Qkuiwu21.8 cm cm Right Additional FindingsLeft Additional Findings Critical Notification Critical Value: No <Conclusion> No significant renal artery stenosis is noted bilaterally. Signed by : Sina Hawley, Electronically Approved : 01/29/2018 15:48:52
[2018-01-29] MEDS: ZOLPIDEM 5 MG TABLET. PO PRN (20:24)
[2018-01-30] MEDS: diphenhydrAMINE 50 MG/ML VIAL IVP PRN ×4 (05:23→19:28)
[2018-01-30] MEDS: oxyCODONE IR 5 MG TABLET PO PRN ×3 (05:23→19:29)
[2018-01-30 05:27] VITALS: BP 124/70
[2018-01-30 06:40] LABS: BASO # 0.1 x10^3/uL (0.0-0.2); BASO % 1 % (0-3); EOS # 0.2 x10^3/uL (0.0-0.7); EOS % 3 % (0-3); HEMATOCRIT 23.4 % (36.0-47.0); HEMOGLOBIN 7.9 g/dL (12.0-15.5); LYMPH # 2.4 x10^3/uL (1.0-4.8); LYMPH % 38 % (24-48); MEAN CORPUSCULAR HEMOGLOBIN 29 pg (25-35); MEAN CORPUSCULAR HGB CONC 34 g/dL (31-37); MEAN CORPUSCULAR VOLUME 87 fL (79-100); MONO # 0.5 x10^3/uL (0.0-1.1); MONO % 8 % (0-9); NEUT # 3.2 x10^3uL (1.8-7.7); NEUT % 50 % (31-73); PLATELET COUNT 227 x10^3/uL (140-400); RED BLOOD COUNT 2.68 x10^6/uL (3.50-5.40); RED CELL DISTRIBUTION WIDTH 14.8 % (11.5-14.5); WHITE BLOOD COUNT 6.3 x10^3/uL (4.0-11.0)
[2018-01-30 06:55] LABS: ALBUMIN 2.4 g/dL (3.4-5.0); ALBUMIN/GLOBULIN RATIO 0.8 (1.0-1.7); CREATININE 2.3 mg/dL (0.6-1.0); GFR 30.1; POTASSIUM 4.3 mmol/L (3.5-5.1); TOTAL BILIRUBIN 0.2 mg/dL (0.2-1.0); TOTAL PROTEIN 5.6 g/dL (6.4-8.2)
[2018-01-30] MEDS: LABETALOL HCL 100 MG TABLET PO SCH ×2 (08:46→18:02)
[2018-01-30] MEDS: FUROSEMIDE 80 MG TABLET PO SCH (08:46)
[2018-01-30] MEDS: hydrALAZINE 25 MG TABLET PO SCH ×3 (08:46→20:58)
[2018-01-30] MEDS: DICYCLOMINE HCL 10 MG CAPSULE PO SCH ×3 (08:46→20:58)
[2018-01-30] MEDS: GABAPENTIN 100 MG CAPSULE. PO SCH ×3 (08:46→20:59)
[2018-01-30] MEDS: SPIRONOLACTONE 25 MG TABLET PO SCH (08:46)
[2018-01-30] MEDS: PANTOPRAZOLE 40 MG TABLET. PO SCH (08:46)
[2018-01-30 11:00] VITALS: BP 160/96
--- NOTE | 2018-01-30 11:47 | CARD ---
MR#: [id number] Date of Study: 01/29/2018 Ordering Physician: GAMAL OCONNELL, Referring Physician: SUKI ALBERTO Tech: CHARITY Degroot APPROVED REPORT EXAM: Two-dimensional and M-mode echocardiogram with Doppler and color Doppler. Other Information Quality : AverageHR: 89bpm INDICATION Hypertension/HCVD 2D DIMENSIONS Left Atrium(2D)2.7 (1.6-4.0cm)IVSd1.4 (0.7-1.1cm) Aortic Root(2D)2.6 (2.0-3.7cm)LVDd4.3 (3.9-5.9cm) LVOT Diameter1.9 (1.8-2.4cm)PWd1.3 (0.7-1.1cm) LVDs3.1 (2.5-4.0cm)FS (%) 29.3 % SV47.3 mlLVEF(%)56.4 (>50%) Aortic Valve AoV Peak Uday.164.5cm/sAoV VTI28.2cm AO Peak GR.10.8mmHgLVOT Peak Uday.116.8cm/s LVOT VTI 21.41cmAO Mean GR.5mmHg VERÓNICA (VMAX)2.73ag7REI (VTI)2.22cm2 Mitral Valve MV E Xlygahhm70.1cm/sMV DECEL [id number] MV A Eokqzied58.2cm/sE/A Ratio1.0 Pulmonary Valve PV Peak Jqxyoxch24.6cm/sPV Peak Grad.3mmHg Tricuspid Valve TR P. Hgsithju569on/sRAP [id number] TR Peak Gr.59skFnAEON20xdLc LEFT VENTRICLE The left ventricle is normal size. There is mild concentric left ventricular hypertrophy. The left ve ntricular systolic function is normal. The ejection fraction is 55-60%. There is normal LV segmental wall motion. The left ventricular diastolic function and filling is normal for age. RIGHT VENTRICLE The right ventricle is normal size. The right ventricular systolic function is normal. ATRIA The left atrium size is normal. The right atrium size is normal. The interatrial septum is intact wit h no evidence for an atrial septal defect or patent foramen ovale as noted on 2-D or Doppler imaging. AORTIC VALVE The aortic valve is normal in structure and function. Doppler and Color Flow revealed no significant aortic regurgitation. There is no significant aortic valvular stenosis. There is no aortic valvular v egetation. MITRAL VALVE The mitral valve is thickened but opens well. There is no evidence of mitral valve prolapse. There is no mitral valve stenosis. Doppler and Color Flow revealed no mitral valve regurgitation noted. TRICUSPID VALVE The tricuspid valve is normal. Doppler and Color Flow revealed mild tricuspid regurgitation. There is no tricuspid valve prolapse or vegetation. There is no tricuspid valve stenosis. PULMONIC VALVE The pulmonic valve is not well visualized. Doppler and Color Flow revealed mild pulmonic valvular reg urgitation. There is no pulmonic valvular stenosis. GREAT VESSELS The aortic root is normal in size. The IVC is dilated. The IVC collapses <50% with inspiration. PERICARDIAL EFFUSION There is no pleural effusion. There is no evidence of significant pericardial effusion. Critical Notification Critical Value: No <Conclusion> The left ventricle is normal size. The left ventricular systolic function is normal. The ejection fraction is 55-60%. There is mild concentric left ventricular hypertrophy. The interatrial septum is intact with no evidence for an atrial septal defect or patent foramen ovale as noted on 2-D or Doppler imaging. There is no significant aortic valvular stenosis. Doppler and Color Flow revealed no significant aortic regurgitation. Doppler and Color Flow revealed no mitral valve regurgitation noted. Doppler and Color Flow revealed mild tricuspid regurgitation. There is no evidence of significant pericardial effusion. Signed by : Samson Alcaraz MD Electronically Approved : 01/30/2018 11:46:33
[2018-01-30] MEDS: IV NORMAL SALINE 1,000ML 1,000 ML IV SCH ×2 (12:53→20:59)
--- NOTE | 2018-01-30 14:31 | PDOC ---
OBJECTIVE: Problems: Problems Medical Problems: (1) Abdominal pain Status: Acute (2) Elevated blood pressure reading Status: Acute Vital Signs: Vital Signs Date Time Temp Pulse Resp B/P (MAP) Pulse Ox O2 Delivery O2 Flow Rate FiO2 01/30/18 12:51 20 98 Room Air 01/30/18 12:50 103 160/96 01/30/18 11:00 97.4 I & O Intake and Output 01/30/18 07:00 Intake Total 1650 ml Balance 1650 ml Intake Oral 1650 ml # Voids 5 Labs: Laboratory Tests Test 01/28/18 15:40 01/28/18 17:42 01/28/18 20:33 01/29/18 06:15 Sodium Level 133 mmol/L (136-145) 134 mmol/L (136-145) Potassium Level 5.5 mmol/L (3.5-5.1) 4.9 mmol/L (3.5-5.1) Chloride Level 105 mmol/L (98-107) 104 mmol/L (98-107) Carbon Dioxide Level 22 mmol/L (21-32) 23 mmol/L (21-32) Anion Gap 6 (6-14) 7 (6-14) Blood Urea Nitrogen 10 mg/dL (7-20) 10 mg/dL (7-20) Creatinine 2.1 mg/dL (0.6-1.0) 2.2 mg/dL (0.6-1.0) Estimated GFR (Cockcroft-Gault) 33.5 31.7 Glucose Level 228 mg/dL (70-99) 171 mg/dL (70-99) Calcium Level 8.2 mg/dL (8.5-10.1) 8.3 mg/dL (8.5-10.1) Glucose (Fingerstick) 185 mg/dL (70-99) 175 mg/dL (70-99) White Blood Count 8.3 x10^3/uL (4.0-11.0) Red Blood Count 3.28 x10^6/uL (3.50-5.40) Hemoglobin 9.5 g/dL (12.0-15.5) Hematocrit 28.8 % (36.0-47.0) Mean Corpuscular Volume 88 fL (79-100) Mean Corpuscular Hemoglobin 29 pg (25-35) Mean Corpuscular Hemoglobin Concent 33 g/dL (31-37) Red Cell Distribution Width 15.1 % (11.5-14.5) Platelet Count 294 x10^3/uL (140-400) Neutrophils (%) (Auto) 57 % (31-73) Lymphocytes (%) (Auto) 32 % (24-48) Monocytes (%) (Auto) 7 % (0-9) Eosinophils (%) (Auto) 3 % (0-3) Basophils (%) (Auto) 1 % (0-3) Neutrophils # (Auto) 4.7 x10^3uL (1.8-7.7) Lymphocytes # (Auto) 2.7 x10^3/uL (1.0-4.8) Monocytes # (Auto) 0.6 x10^3/uL (0.0-1.1) Eosinophils # (Auto) 0.2 x10^3/uL (0.0-0.7) Basophils # (Auto) 0.1 x10^3/uL (0.0-0.2) BUN/Creatinine Ratio 5 (6-20) Magnesium Level 1.8 mg/dL (1.8-2.4) Total Bilirubin 0.2 mg/dL (0.2-1.0) Aspartate Amino Transf (AST/SGOT) 15 U/L (15-37) Alanine Aminotransferase (ALT/SGPT) 16 U/L (14-59) Alkaline Phosphatase 102 U/L (46-116) Total Protein 6.6 g/dL (6.4-8.2) Albumin 2.7 g/dL (3.4-5.0) Albumin/Globulin Ratio 0.7 (1.0-1.7) Lipase 341 U/L (73-393) Thyroid Stimulating Hormone (TSH) 4.748 uIU/mL (0.358-3.740) Test 01/29/18 12:06 01/29/18 20:18 01/30/18 06:10 Glucose (Fingerstick) 211 mg/dL (70-99) 251 mg/dL (70-99) White Blood Count 6.3 x10^3/uL (4.0-11.0) Red Blood Count 2.68 x10^6/uL (3.50-5.40) Hemoglobin 7.9 g/dL (12.0-15.5) Hematocrit 23.4 % (36.0-47.0) Mean Corpuscular Volume 87 fL (79-100) Mean Corpuscular Hemoglobin 29 pg (25-35) Mean Corpuscular Hemoglobin Concent 34 g/dL (31-37) Red Cell Distribution Width 14.8 % (11.5-14.5) Platelet Count 227 x10^3/uL (140-400) Neutrophils (%) (Auto) 50 % (31-73) Lymphocytes (%) (Auto) 38 % (24-48) Monocytes (%) (Auto) 8 % (0-9) Eosinophils (%) (Auto) 3 % (0-3) Basophils (%) (Auto) 1 % (0-3) Neutrophils # (Auto) 3.2 x10^3uL (1.8-7.7) Lymphocytes # (Auto) 2.4 x10^3/uL (1.0-4.8) Monocytes # (Auto) 0.5 x10^3/uL (0.0-1.1) Eosinophils # (Auto) 0.2 x10^3/uL (0.0-0.7) Basophils # (Auto) 0.1 x10^3/uL (0.0-0.2) Sodium Level 136 mmol/L (136-145) Potassium Level 4.3 mmol/L (3.5-5.1) Chloride Level 105 mmol/L (98-107) Carbon Dioxide Level 25 mmol/L (21-32) Anion Gap 6 (6-14) Blood Urea Nitrogen 13 mg/dL (7-20) Creatinine 2.3 mg/dL (0.6-1.0) Estimated GFR (Cockcroft-Gault) 30.1 BUN/Creatinine Ratio 6 (6-20) Glucose Level 211 mg/dL (70-99) Calcium Level 8.0 mg/dL (8.5-10.1) Total Bilirubin 0.2 mg/dL (0.2-1.0) Aspartate Amino Transf (AST/SGOT) 7 U/L (15-37) Alanine Aminotransferase (ALT/SGPT) 15 U/L (14-59) Alkaline Phosphatase 92 U/L (46-116) Total Protein 5.6 g/dL (6.4-8.2) Albumin 2.4 g/dL (3.4-5.0) Albumin/Globulin Ratio 0.8 (1.0-1.7) ASSESSMENT: Anemia with hemoglobin 7.9 (24 hour dropped from 9.5) Hypothyroidism: Thyroid antibodies pending Hypertension: Good control with medication adjustments, echocardiogram and renal ultrasound negative Acute pancreatitis: Resolved Chronic kidney disease: Uncontrolled diabetes PLAN: She probably has been discharged today were not for the acute drop in hemoglobin. We'll check fecal occult blood and CBC in the morning. SUKI ALBERTO DO Jan 30, 2018 14:31
[2018-01-30 15:00] VITALS: BP 161/112
[2018-01-30 19:22] VITALS: BP 151/96
[2018-01-30] MEDS: MELATONIN 3 MG TABLET PO PRN (20:58)
[2018-01-30] MEDS: ZOLPIDEM 5 MG TABLET. PO PRN (20:58)
[2018-01-30 22:07] VITALS: BP 147/99
[2018-01-31] MEDS: oxyCODONE IR 5 MG TABLET PO PRN ×2 (01:41→08:03)
[2018-01-31] MEDS: diphenhydrAMINE 50 MG/ML VIAL IVP PRN ×2 (01:41→08:04)
[2018-01-31] MEDS: IV NORMAL SALINE 1,000ML 1,000 ML IV SCH (05:16)
[2018-01-31 05:23] VITALS: BP 167/97
[2018-01-31] MEDS: hydrALAZINE 25 MG TABLET PO SCH ×3 (05:25→12:23)
[2018-01-31 05:28] LABS: BASO # 0.1 x10^3/uL (0.0-0.2); BASO % 1 % (0-3); EOS # 0.2 x10^3/uL (0.0-0.7); EOS % 3 % (0-3); HEMATOCRIT 26.2 % (36.0-47.0); HEMOGLOBIN 8.8 g/dL (12.0-15.5); LYMPH % 39 % (24-48); MEAN CORPUSCULAR HEMOGLOBIN 29 pg (25-35); MEAN CORPUSCULAR HGB CONC 34 g/dL (31-37); MEAN CORPUSCULAR VOLUME 87 fL (79-100); MONO # 0.6 x10^3/uL (0.0-1.1); MONO % 8 % (0-9); NEUT # 3.7 x10^3uL (1.8-7.7); NEUT % 49 % (31-73); PLATELET COUNT 261 x10^3/uL (140-400); RED BLOOD COUNT 3.02 x10^6/uL (3.50-5.40); RED CELL DISTRIBUTION WIDTH 14.8 % (11.5-14.5); WHITE BLOOD COUNT 7.5 x10^3/uL (4.0-11.0)
[2018-01-31] MEDS: LABETALOL HCL 100 MG TABLET PO SCH (08:02)
[2018-01-31] MEDS: ACETAMINOPHEN 325 MG TABLET PO PRN (08:02)
[2018-01-31] MEDS: FUROSEMIDE 80 MG TABLET PO SCH (08:02)
[2018-01-31] MEDS: SPIRONOLACTONE 25 MG TABLET PO SCH (08:03)
[2018-01-31] MEDS: PANTOPRAZOLE 40 MG TABLET. PO SCH (08:03)
[2018-01-31] MEDS: GABAPENTIN 100 MG CAPSULE. PO SCH ×2 (08:03→12:23)
[2018-01-31] MEDS: DICYCLOMINE HCL 10 MG CAPSULE PO SCH ×2 (08:03→12:23)
[2018-01-31 10:01] VITALS: BP 167/116
[2018-01-31 12:23] VITALS: BP 167/116
--- NOTE | 2018-01-31 12:47 | PDOC3 ---
Discharge Summary Visit Information Final Diagnosis Problems Medical Problems: (1) Abdominal pain Status: Acute (2) Elevated blood pressure reading Status: Acute Brief Hospital Course Allergies Allergies Coded Allergies Type Severity Reaction Last Updated Verified ketorolac Allergy Intermediate 01/29/18 Yes morphine Allergy Intermediate Unknown 01/29/18 Yes ondansetron Allergy Intermediate Itching 01/29/18 Yes Vital Signs Vital Signs Date Time Temp Pulse Resp B/P (MAP) Pulse Ox O2 Delivery O2 Flow Rate FiO2 01/31/18 12:24 20 98 Room Air 01/31/18 12:23 96 167/116 01/31/18 10:01 98.3 Lab Results Laboratory Tests Test 01/29/18 20:18 01/30/18 06:10 01/30/18 20:38 01/31/18 05:05 Glucose (Fingerstick) 251 mg/dL (70-99) 247 mg/dL (70-99) White Blood Count 6.3 x10^3/uL (4.0-11.0) 7.5 x10^3/uL (4.0-11.0) Red Blood Count 2.68 x10^6/uL (3.50-5.40) 3.02 x10^6/uL (3.50-5.40) Hemoglobin 7.9 g/dL (12.0-15.5) 8.8 g/dL (12.0-15.5) Hematocrit 23.4 % (36.0-47.0) 26.2 % (36.0-47.0) Mean Corpuscular Volume 87 fL (79-100) 87 fL (79-100) Mean Corpuscular Hemoglobin 29 pg (25-35) 29 pg (25-35) Mean Corpuscular Hemoglobin Concent 34 g/dL (31-37) 34 g/dL (31-37) Red Cell Distribution Width 14.8 % (11.5-14.5) 14.8 % (11.5-14.5) Platelet Count 227 x10^3/uL (140-400) 261 x10^3/uL (140-400) Neutrophils (%) (Auto) 50 % (31-73) 49 % (31-73) Lymphocytes (%) (Auto) 38 % (24-48) 39 % (24-48) Monocytes (%) (Auto) 8 % (0-9) 8 % (0-9) Eosinophils (%) (Auto) 3 % (0-3) 3 % (0-3) Basophils (%) (Auto) 1 % (0-3) 1 % (0-3) Neutrophils # (Auto) 3.2 x10^3uL (1.8-7.7) 3.7 x10^3uL (1.8-7.7) Lymphocytes # (Auto) 2.4 x10^3/uL (1.0-4.8) 3.0 x10^3/uL (1.0-4.8) Monocytes # (Auto) 0.5 x10^3/uL (0.0-1.1) 0.6 x10^3/uL (0.0-1.1) Eosinophils # (Auto) 0.2 x10^3/uL (0.0-0.7) 0.2 x10^3/uL (0.0-0.7) Basophils # (Auto) 0.1 x10^3/uL (0.0-0.2) 0.1 x10^3/uL (0.0-0.2) Sodium Level 136 mmol/L (136-145) Potassium Level 4.3 mmol/L (3.5-5.1) Chloride Level 105 mmol/L (98-107) Carbon Dioxide Level 25 mmol/L (21-32) Anion Gap 6 (6-14) Blood Urea Nitrogen 13 mg/dL (7-20) Creatinine 2.3 mg/dL (0.6-1.0) Estimated GFR (Cockcroft-Gault) 30.1 BUN/Creatinine Ratio 6 (6-20) Glucose Level 211 mg/dL (70-99) Calcium Level 8.0 mg/dL (8.5-10.1) Total Bilirubin 0.2 mg/dL (0.2-1.0) Aspartate Amino Transf (AST/SGOT) 7 U/L (15-37) Alanine Aminotransferase (ALT/SGPT) 15 U/L (14-59) Alkaline Phosphatase 92 U/L (46-116) Total Protein 5.6 g/dL (6.4-8.2) Albumin 2.4 g/dL (3.4-5.0) Albumin/Globulin Ratio 0.8 (1.0-1.7) Test 01/31/18 07:41 01/31/18 11:31 Glucose (Fingerstick) 162 mg/dL (70-99) 155 mg/dL (70-99) Brief Hospital Course Ms. Escobar is a 32 old [sex] who presented with [ ] Discharge Information Dischare Medications Current Medications Sodium Chloride 1,000 ml @ 1,000 mls/hr 1X ONCE IV Last administered on at 11:50; Start 01/26/18 at 11:30; Stop 01/26/18 at 12:29; Status DC Fentanyl Citrate (Fentanyl 5ml Vial) 50 mcg 1X ONCE IV ; Start 01/26/18 at 12: 00; Stop 01/26/18 at 12:01; Status DC Metoclopramide HCl (Reglan Vial) 10 mg 1X ONCE IV Last administered on at 11:51; Start 01/26/18 at 11:30; Stop 01/26/18 at 11:53; Status DC Lorazepam (Ativan) 2 mg 1X ONCE IV Last administered on 01/26/18at 11:51; Start 01/26/18 at 11:30; Stop 01/26/18 at 11:53; Status DC Fentanyl Citrate (Fentanyl 2ml Vial) 100 mcg STK-MED ONCE .ROUTE ; Start at 11:47; Stop 01/26/18 at 11:48; Status DC Fentanyl Citrate (Fentanyl 2ml Vial) 50 mcg 1X ONCE IV Last administered on 04/04at 11:56; Start 01/26/18 at 12:00; Stop 01/26/18 at 12:01; Status DC Fentanyl Citrate (Fentanyl 2ml Vial) 50 mcg PRN Q2HR PRN IV PAIN Last administered on 01/27/18at 12:37; Start 01/26/18 at 13:30; Stop 01/27/18 at 13:29 ; Status DC Sodium Chloride 1,000 ml @ 200 mls/hr Q5H IV ; Start 01/26/18 at 13:30; Stop at 17:26; Status DC Insulin Human Lispro (HumaLOG) 0-7 UNITS TIDWMEALS SQ ; Start 01/26/18 at 17:00 ; Stop 01/26/18 at 18:13; Status DC Dextrose 12.5 gm PRN Q15MIN PRN IV SEE COMMENTS; Start 01/26/18 at 13:30 Hydralazine HCl (Apresoline) 20 mg 1X ONCE IV ; Start 01/26/18 at 13:45; Stop 01/26/18 at 13:52; Status DC Insulin Human Lispro (HumaLOG) 10 units TIDAC SQ ; Start 01/26/18 at 16:30; Stop 01/26/18 at 16:30; Status DC Insulin Human Lispro (HumaLOG) 10 units 1X ONCE SQ Last administered on at 14:01; Start 01/26/18 at 14:15; Stop 01/26/18 at 14:16; Status DC Labetalol HCl (Normodyne) 20 mg 1X ONCE IV Last administered on 01/26/18at 14: 04; Start 01/26/18 at 14:00; Stop 01/26/18 at 14:01; Status DC Labetalol HCl (Normodyne) 100 mg STK-MED ONCE IV ; Start 01/26/18 at 13:56; Stop 01/26/18 at 13:57; Status DC Nicardipine HCl 50 mg/Sodium Chloride 270 ml @ 0 mls/hr CONT PRN IV SEE I/O RECORD Last administered on 01/28/18at 00:08; Start 01/26/18 at 14:30; Stop 01/31 at 08:36; Status DC Acetaminophen (Tylenol) 650 mg PRN Q6HRS PRN PO Headaches, Temp > 101.5F Last administered on 01/31/18at 08:02; Start 01/26/18 at 16:15 Metoclopramide HCl (Reglan Vial) 10 mg PRN Q6HRS PRN IV NAUSEA/VOMITING Last administered on 01/29/18at 02:02; Start 01/26/18 at 16:15 Ondansetron HCl (Zofran) 4 mg PRN Q8HRS PRN IV NAUSEA/VOMITING; Start 01/26/18 at 16:15; Stop 01/26/18 at 17:28; Status DC Insulin Human Regular 150 unit/ Sodium Chloride 151.5 ml @ 0 mls/hr CONT PRN IV SEE I/O RECORD Last administered on 01/26/18at 16:48; Start 01/26/18 at 16:30 ; Stop 01/31/18 at 08:37; Status DC Potassium Chloride 40 meq/ Dextrose/Sodium Chloride 1,020 ml @ 150 mls/hr Q6H48M IV Last administered on 01/27/18at 00:34; Start 01/26/18 at 17:30; Stop 01/27/18 at 07:26; Status DC Insulin Human Lispro (HumaLOG) 0-7 UNITS TIDWMEALS PRN SQ HYPERGLYCEMIA Last administered on 01/28/18at 13:46; Start 01/26/18 at 18:15 Nicardipine HCl (Cardene) 25 mg STK-MED ONCE IV ; Start 01/27/18 at 03:14; Stop 01/27/18 at 03:15; Status DC Sodium Chloride 1,000 ml @ 100 mls/hr Q10H IV Last administered on 01/27/18at 08:08; Start 01/27/18 at 07:30; Stop 01/27/18 at 09:45; Status DC Sodium Chloride 1,000 ml @ 150 mls/hr Q6H40M IV Last administered on at 09:46; Start 01/27/18 at 09:17; Stop 01/27/18 at 15:56; Status DC Fentanyl Citrate (Fentanyl 2ml Vial) 50 mcg PRN Q2HR PRN IV PAIN Last administered on 01/27/18at 14:57; Start 01/27/18 at 14:30; Stop 01/27/18 at 17:21 ; Status DC Fentanyl Citrate (Fentanyl 2ml Vial) 75 mcg PRN Q2HR PRN IV PAIN Last administered on 01/31/18at 12:24; Start 01/27/18 at 17:15 Potassium Chloride 40 meq/ Sodium Chloride 1,020 ml @ 150 mls/hr Q6H48M IV ; Start 01/27/18 at 17:45; Stop 01/27/18 at 17:45; Status DC Potassium Chloride/Sodium Chloride 1,000 ml @ 150 mls/hr Q6H40M IV Last administered on 01/28/18at 06:06; Start 01/27/18 at 17:45; Stop 01/28/18 at 10:52 ; Status DC Prochlorperazine Edisylate (Compazine) 10 mg PRN Q6HRS PRN IV NAUSEA/VOMITING Last administered on 01/30/18 02:50; Start 01/27/18 at 19:00 Melatonin 3 mg PRN QHS PRN PO INSOMNIA Last administered on 01/30/18at 20:58; Start 01/27/18 at 19:15 Diphenhydramine HCl (Benadryl) 25 mg PRN Q6HRS PRN IVP ITCHING Last administered on 01/28/18at 14:11; Start 01/27/18 at 19:15; Stop 01/28/18 at 16:41 ; Status DC Sodium Chloride 1,000 ml @ 100 mls/hr Q10H IV Last administered on 01/31/18at 05:16; Start 01/28/18 at 10:15 Info ([facility] Electrolyte Protocol) 1 ea CONT PRN PRN MC PER PROTOCOL; Start at 10:15 Magnesium Sulfate 50 ml @ 25 mls/hr 1X ONCE IV ; Start 01/28/18 at 10:15; Stop 01/28/18 at 12:14; Status UNV Gabapentin (Neurontin) 100 mg TID PO Last administered on 01/31/18at 12:23; Start 01/28/18 at 14:00 Amlodipine Besylate (Norvasc) 10 mg DAILY PO Last administered on 01/29/18at 08: 42; Start 01/28/18 at 11:00; Stop 01/29/18 at 10:59; Status DC Carvedilol (Coreg) 12.5 mg BIDWMEALS PO ; Start 01/28/18 at 17:00; Stop at 17:00; Status DC Dicyclomine HCl (Bentyl) 10 mg TID PO Last administered on 01/31/18at 12:23; Start 01/28/18 at 14:00 Furosemide (Lasix) 80 mg DAILY PO Last administered on 01/31/18 08:02; Start 01/28/18 at 11:00 Pantoprazole Sodium (Protonix) 40 mg DAILYAC PO Last administered on 01/31/18at 08:03; Start 01/28/18 at 11:00 Spironolactone (Aldactone) 50 mg DAILY PO Last administered on 01/31/18at 08:03 ; Start 01/28/18 at 11:00 Magnesium Sulfate 100 ml @ 100 mls/hr Q1H IV Last administered on 01/28/18at 13 :28; Start 01/28/18 at 10:45; Stop 01/28/18 at 12:44; Status DC Carvedilol (Coreg) 12.5 mg BIDWMEALS PO Last administered on 01/29/18at 06:19; Start 01/28/18 at 10:45; Stop 01/29/18 at 10:59; Status DC Hydralazine HCl (Apresoline) 25 mg TID PO Last administered on 01/31/18at 12:23 ; Start 01/28/18 at 13:15 Oxycodone HCl (Roxicodone) 10 mg PRN Q6HRS PRN PO PAIN Last administered on at 08:03; Start 01/28/18 at 13:15 Diphenhydramine HCl (Benadryl) 25 mg 1X ONCE IVP Last administered on at 16:43; Start 01/28/18 at 16:45; Stop 01/28/18 at 16:46; Status DC Diphenhydramine HCl (Benadryl) 50 mg PRN Q6HRS PRN IVP ITCHING Last administered on 01/31/18at 08:04; Start 01/28/18 at 22:45 Labetalol HCl (Trandate) 100 mg BID PO Last administered on 01/31/18at 08:02; Start 01/29/18 at 11:15 Nifedipine (Procardia Xl) 90 mg 1X ONCE PO Last administered on 01/29/18at 11: 19; Start 01/29/18 at 11:00; Stop 01/29/18 at 11:08; Status DC Zolpidem Tartrate (Ambien) 10 mg PRN QHS PRN PO INSOMNIA Last administered on at 20:58; Start 01/29/18 at 16:45 Active Scripts Active Protonix (Pantoprazole Sodium) 40 Mg Tablet.dr 1 Tab PO DAILY 30 Days Neurontin (Gabapentin) 100 Mg Capsule 100 Mg PO TID 30 Days Dicyclomine Hcl 10 Mg Capsule 1 Cap PO TID Reported Oxycodone Hcl 5 Mg Capsule 1 Cap PO QID PRN Hydralazine Hcl 25 Mg Tablet 1 Tab PO TID Aldactone (Spironolactone) 50 Mg Tablet 1 Tab PO DAILY LAST DOSE GIVEN: DATE: TIME: NEXT DOSE DUE: DATE: TIME: Lasix (Furosemide) 80 Mg Tablet 1 Tab PO DAILY LAST DOSE GIVEN: DATE: TIME: NEXT DOSE DUE: DATE: TIME: Coreg (Carvedilol) 12.5 Mg Tablet 1 Tab PO BID LAST DOSE GIVEN: DATE: TIME: NEXT DOSE DUE: DATE: TIME: Novolog Flexpen (Insulin Aspart) 100 Unit/1 Ml Insuln.pen 10 Unit SQ TIDWMEALS LAST DOSE GIVEN: DATE: TIME: NEXT DOSE DUE: DATE: TIME: Lantus Solostar (Insulin Glargine,Hum.rec.anlog) 100 Unit/1 Ml Insuln.pen 10 Unit SQ DAILY LAST DOSE GIVEN: DATE: TIME: NEXT DOSE DUE: DATE: TIME: Norvasc (Amlodipine Besylate) 10 Mg Tablet 1 Tab PO DAILY LAST DOSE GIVEN: DATE: TIME: NEXT DOSE DUE: DATE: TIME: Proair Hfa Inhaler (Albuterol Sulfate) 8.5 Gm Hfa.aer.ad 2 Puff INH PRN Q6HRS LAST DOSE GIVEN: DATE: TIME: NEXT DOSE DUE: DATE: TIME: SUKI ALBERTO DO Jan 31, 2018 12:47
[2018-01-31 13:11] LABS: THYROPEROXIDASE ANTIBODY 11 IU/mL (0-34)
== END 2018-01-31 15:40 | disposition home health service (06) | DRG 438 ==
LOC: ER 11:04 → ICU 15:40 → 1 SOUTH 01-29 15:42
PROVIDERS: ADMIT Neuromusculoskeletal Medicine & OMM; ATTEND Neuromusculoskeletal Medicine & OMM
DX: K85.90 Acute pancreatitis without necrosis or infection, unspecified (principal); N17.0 Acute kidney failure with tubular necrosis; K86.1 Other chronic pancreatitis; D64.9 Anemia, unspecified; I16.0 Hypertensive urgency; E10.22 Type 1 diabetes mellitus with diabetic chronic kidney disease; E10.43 Type 1 diabetes mellitus with diabetic autonomic (poly)neuropathy; E10.65 Type 1 diabetes mellitus with hyperglycemia; E83.42 Hypomagnesemia; E87.5 Hyperkalemia; F17.210 Nicotine dependence, cigarettes, uncomplicated; K31.89 Other diseases of stomach and duodenum; R11.2 Nausea with vomiting, unspecified; I12.9 Hypertensive chronic kidney disease with stage 1 through stage 4 chronic kidney disease, or unspecified chronic kidney disease; K21.9 Gastro-esophageal reflux disease without esophagitis; K31.84 Gastroparesis; E03.9 Hypothyroidism, unspecified; N18.9 Chronic kidney disease, unspecified; Z83.2 Family history of diseases of the blood and blood-forming organs and certain disorders involving the immune mechanism; Z83.3 Family history of diabetes mellitus; Z91.14 Patient's other noncompliance with medication regimen; Z79.899 Other long term (current) drug therapy; Z90.49 Acquired absence of other specified parts of digestive tract; Z98.51 Tubal ligation status; Z88.5 Allergy status to narcotic agent; Z88.8 Allergy status to other drugs, medicaments and biological substances
CPT/HCPCS: 36415; 36569; 76770; 80048; 80053; 80307; 81001; 82947; 83520; 83690; 83735; 84443; 85025; 86376; 87641; 93306; 94799; 96361; 96372; 96374; 96375; G0379; G0480; J0780; J1200; J1815; J2060; J2765; J3010; J3475; J3490; J7050; 99285-25; G0479; J7030

== ENCOUNTER 2018-02-07 10:09 | Inpatient (IN) | payer OTHER ==
[~2018-02-07] VITALS: Ht 167.6 cm; Wt 64.6 kg
[~2018-02-07 10:09] MED LIST changes: +HYDR-2868 PO; +OXYC5CAP PO
--- NOTE | 2018-02-07 10:23 | ED.ADGEN ---
Past History Past Medical History: Anemia, Diabetes, GERD, Hypertension, Pancreatitis, Renal Failure, Vascular Disease, Other Past Surgical History: Cholecystectomy, , Tubal ligation Alcohol Use: None Drug Use: None Adult General Chief Complaint Chief Complaint Epigastric pain vomiting HPI HPI The patient is a 32-year-old female with history of chronic pancreatitis. She was recently admitted to [facility] 2 weeks ago for acute on chronic pancreatitis. Since then she was relatively well until last night around 8:00pm , when she had re-onset of epigastric pain and vomiting. She denies any alcohol use. She hasn't been able to eat very much. She's been drinking fluids. She's had multiple episodes of emesis since last night no hematemesis. No fevers. She admits to smoking marijuana. Her pancreatitis episodes started when she was 18years old after cholecystectomy. She originally had gallstone pancreatitis. Review of Systems Review of Systems Constitutional: Denies fever or chills Eyes: Denies change in visual acuity, redness, or eye pain HENT: Denies nasal congestion or sore throat Respiratory: Denies cough or shortness of breath Cardiovascular: Denies CP or palpitations GI: with abdominal pain, nausea, vomiting, no bloody stools or diarrhea : Denies dysuria or hematuria Musculoskeletal: Denies back pain or joint pain Integument: Denies rash or skin lesions Neurologic: Denies headache, focal weakness or sensory changes Endocrine: Denies polyuria or polydipsia All other systems were reviewed and found to be within normal limits, except as documented in this note. Current Medications Current Medications Current Medications Medications (Trade) Dose Ordered Sig/[facility] Start Time Stop Time Status Last Admin Dose Admin Fentanyl Citrate (Fentanyl 2ml Vial) 100 mcg 1X ONCE 02/07/18 12:15 02/07/18 12:16 DC 02/07/18 12:12 100 MCG Metoclopramide HCl (Reglan Vial) 5 mg 1X ONCE 02/07/18 10:30 02/07/18 10:32 DC 02/07/18 10:43 5 MG Promethazine HCl 12.5 mg/Sodium Chloride 50.5 ml @ 101 mls/hr PRN Q6HRS PRN 02/07/18 10:30 02/07/18 10:30 DC Sodium Chloride 1,000 ml @ 1,000 mls/hr 1X ONCE 02/07/18 10:30 02/07/18 11:29 DC 02/07/18 10:44 1,000 MLS/HR Allergies Allergies Allergies Coded Allergies Type Severity Reaction Last Updated Verified ketorolac Allergy Intermediate 01/29/18 Yes morphine Allergy Intermediate Unknown 01/29/18 Yes ondansetron Allergy Intermediate Itching 01/29/18 Yes Physical Exam Physical Exam Constitutional: Well developed, well nourished, in moderate pain distress, non- toxic appearance. HENT: Normocephalic, atraumatic, bilateral external ears normal, oropharynx dry , no oral exudates, nose normal. Eyes: PERRLA, EOMI, conjunctiva normal, no discharge. Neck: Normal range of motion, no tenderness, supple, no stridor. Cardiovascular:Heart rate regular rhythm, no murmur Lungs & Thorax: Bilateral breath sounds clear to auscultation Abdomen: Decreased bowel sounds with epigastric tenderness to palpation, no masses, no pulsatile masses. Skin: Warm, dry, no erythema, no rash. Back: No tenderness, no CVA tenderness. Extremities: No tenderness, no cyanosis, no clubbing, ROM intact, no edema. Neurologic: Alert and oriented X 3, normal motor function, normal sensory function, no focal deficits noted. Psychologic: Affect normal, judgement normal, mood normal. Current Patient Data Vital Signs Vital Signs Date Time Temp Pulse Resp B/P (MAP) Pulse Ox O2 Delivery O2 Flow Rate FiO2 02/07/18 10:09 98.6 92 22 98 Room Air Lab Results Laboratory Tests Test 02/07/18 09:40 02/07/18 10:19 02/07/18 10:37 POC Urine HCG, Qualitative hcg negative (Negative) Urine Collection Type Unknown Urine Color Yellow Urine Clarity Hazy Urine pH 7.0 Urine Specific [place] 1.020 Urine Protein >100 mg/dl (NEG-TRACE) Urine Glucose (UA) >=1000 mg/dL (NEG) Urine Ketones (Stick) Neg mg/dL (NEG) Urine Blood Trace (NEG) Urine Nitrite Neg (NEG) Urine Bilirubin Neg (NEG) Urine Urobilinogen Dipstick 0.2 mg/dL (0.2 mg/dL) Urine Leukocyte Esterase Neg (NEG) Urine RBC 3-5 /HPF (0-2) Urine WBC 1-4 /HPF (0-4) Urine Squamous Epithelial Cells Mod /LPF Urine Bacteria Mod /HPF (0-FEW) Urine Hyaline Casts Occ /HPF Serum Test, Qualitative Negative (NEG) Urine Opiates Screen Neg (NEG) Urine Methadone Screen Neg (NEG) Urine Barbiturates Neg (NEG) Urine Phencyclidine Screen Neg (NEG) Urine Amphetamine/Methamphetamine Neg (NEG) Urine Benzodiazepines Screen Neg (NEG) Urine Cocaine Screen Neg (NEG) Urine Cannabinoids Screen Pos (NEG) Urine Ethyl Alcohol Neg (NEG) White Blood Count 9.1 x10^3/uL (4.0-11.0) Red Blood Count 3.64 x10^6/uL (3.50-5.40) Hemoglobin 10.6 g/dL (12.0-15.5) L Hematocrit 31.5 % (36.0-47.0) L Mean Corpuscular Volume 87 fL (79-100) Mean Corpuscular Hemoglobin 29 pg (25-35) Mean Corpuscular Hemoglobin Concent 34 g/dL (31-37) Red Cell Distribution Width 14.4 % (11.5-14.5) Platelet Count 424 x10^3/uL (140-400) H Neutrophils (%) (Auto) 65 % (31-73) Lymphocytes (%) (Auto) 27 % (24-48) Monocytes (%) (Auto) 6 % (0-9) Eosinophils (%) (Auto) 1 % (0-3) Basophils (%) (Auto) 1 % (0-3) Neutrophils # (Auto) 5.9 x10^3uL (1.8-7.7) Lymphocytes # (Auto) 2.4 x10^3/uL (1.0-4.8) Monocytes # (Auto) 0.6 x10^3/uL (0.0-1.1) Eosinophils # (Auto) 0.1 x10^3/uL (0.0-0.7) Basophils # (Auto) 0.1 x10^3/uL (0.0-0.2) Sodium Level 137 mmol/L (136-145) Potassium Level 4.0 mmol/L (3.5-5.1) Chloride Level 103 mmol/L (98-107) Carbon Dioxide Level 29 mmol/L (21-32) Anion Gap 5 (6-14) L Blood Urea Nitrogen 15 mg/dL (7-20) Creatinine 2.6 mg/dL (0.6-1.0) H Estimated GFR (Cockcroft-Gault) 26.2 BUN/Creatinine Ratio 6 (6-20) Glucose Level 305 mg/dL (70-99) H Calcium Level 9.4 mg/dL (8.5-10.1) Total Bilirubin 0.2 mg/dL (0.2-1.0) Aspartate Amino Transferase (AST) 13 U/L (15-37) L Alanine Aminotransferase (ALT) 15 U/L (14-59) Alkaline Phosphatase 115 U/L (46-116) Troponin I Quantitative < 0.017 ng/mL (0-0.055) Total Protein 7.4 g/dL (6.4-8.2) Albumin 3.0 g/dL (3.4-5.0) L Albumin/Globulin Ratio 0.7 (1.0-1.7) L Lipase 633 U/L (73-393) H EKG EKG ECG 11:08 AM No sinus rhythm at 62 with T-wave inversions in I and aVL Radiology/Procedures Radiology/Procedures 10:35AM Peripheral IV insertion I placed a 20-gauge IV in her right external jugular vein for IV access. Site was prepped with chlorhexidine swab. A 20-gauge IV was placed without ultrasound guidance. There is good blood return and the IV flushed well. Labs were drawn. She tolerated the procedure well. [address] [address] IMAGING REPORT Signed PATIENT: IKE PRICE ACCOUNT: [id number] : 1985 LOCATION: ER AGE: 32 SEX: F EXAM STATUS: REG ER ORD. PHYSICIAN: NEAL PARISI MD REASON: abdominal pain and vomiting PROCEDURE: ACUTE ABDOMEN SERIES Three-view acute abdominal series. HISTORY: Abdominal pain, nausea, constipation 3 views were taken for an acute abdominal series. Lungs are clear on the PA chest. Heart is normal in size without heart failure. There is no effusion. There is no free air on the portable upright view the abdomen. The stomach is mildly distended. The patient's had a cholecystectomy. There is mild gas in the colon. There is no small bowel obstruction. There is mild stool in the colon without definite fecal impaction. IMPRESSION: 1. No acute chest disease. 2. No bowel obstruction or acute finding noted in the abdomen. Electronically signed by: Aneesh Pollock MD (02/07/2018 11:58 AM) [facility] DICTATED AND SIGNED BY: ANEESH POLLOCK MD DATE: 02/07/18 1156 CC: NEAL PARISI MD; CHARO CROOK MD ~ Course & Med Decision Making Course & Med Decision Making Emergency department course Patient presents with epigastric pain and vomiting DDx-Pancreatitis, gastritis, GERD, peptic ulcer disease, cyclical vomiting syndrome The patient was stable in the emergency department improved after IV normal saline bolus hydration, Compazine, fentanyl. Labs remarkable for elevated lipase , hyperglycemia and elevated creatinine. ECG and troponin showed no evidence of ACS. Abdominal 3 view abdominal x-rays were unremarkable. Patient had persistent pain and nausea with retching. 12:30 PM Case discussed with Dr. Quiroz who agreed with admission Final Impression Final Impression Clinical impression Acute pancreatitis Renal insufficiency hyperglycemia Cyclical vomiting syndrome Marijuana use Dragon Disclaimer Dragon Disclaimer This electronic medical record was generated, in whole or in part, using a voice recognition dictation system. Departure: Impression: Primary Impression: Acute pancreatitis Additional Impressions: Renal insufficiency Cyclical vomiting with nausea Marijuana use Hyperglycemia Disposition: 09 ADMITTED INPATIENT Departure Departure: Impression: Primary Impression: Acute pancreatitis Additional Impressions: Renal insufficiency Cyclical vomiting with nausea Marijuana use Hyperglycemia Disposition: 09 ADMITTED INPATIENT Admitting Physician: Agnes Quiroz CLARKE J MD Feb 07, 2018 10:23
[2018-02-07] MEDS ORDERED: PROMETHAZINE 12.5 MG in IV NORMAL SALINE 50ML 50 ML IV PRN (10:30)
[2018-02-07] MEDS ORDERED: METOCLOPRAMIDE HCL 10 MG/2 ML VIAL. IV ONE (10:30)
[2018-02-07] MEDS ORDERED: IV NORMAL SALINE 1,000ML 1,000 ML IV ONE (10:30)
[2018-02-07 10:53] LABS: BASO # 0.1 x10^3/uL (0.0-0.2); BASO % 1 % (0-3); EOS # 0.1 x10^3/uL (0.0-0.7); EOS % 1 % (0-3); HEMATOCRIT 31.5 % (36.0-47.0); HEMOGLOBIN 10.6 g/dL (12.0-15.5); LYMPH # 2.4 x10^3/uL (1.0-4.8); LYMPH % 27 % (24-48); MEAN CORPUSCULAR HEMOGLOBIN 29 pg (25-35); MEAN CORPUSCULAR HGB CONC 34 g/dL (31-37); MEAN CORPUSCULAR VOLUME 87 fL (79-100); MONO # 0.6 x10^3/uL (0.0-1.1); MONO % 6 % (0-9); NEUT # 5.9 x10^3uL (1.8-7.7); NEUT % 65 % (31-73); PLATELET COUNT 424 x10^3/uL (140-400); RED BLOOD COUNT 3.64 x10^6/uL (3.50-5.40); RED CELL DISTRIBUTION WIDTH 14.4 % (11.5-14.5); WHITE BLOOD COUNT 9.1 x10^3/uL (4.0-11.0)
[2018-02-07 10:56] LABS: AMPHETAMINE/METHAMPHETAMINE NEG (NEG); BARBITURATES NEG (NEG); BENZODIAZEPINES NEG (NEG); CANNABINOIDS POS (NEG); COCAINE NEG (NEG); METHADONE NEG (NEG); OPIATES NEG (NEG); PHENCYCLIDINE NEG (NEG)
[2018-02-07 11:00] LABS: PREG TEST PT QUAL NEGATIVE (NEG)
[2018-02-07 11:03] LABS: ALBUMIN/GLOBULIN RATIO 0.7 (1.0-1.7); CALCIUM 9.4 mg/dL (8.5-10.1); CREATININE 2.6 mg/dL (0.6-1.0); GFR 26.2; TOTAL BILIRUBIN 0.2 mg/dL (0.2-1.0); TOTAL PROTEIN 7.4 g/dL (6.4-8.2)
[2018-02-07 11:05] LABS: BILIRUBIN,URINE NEG (NEG); CLARITY,URINE HAZY; COLOR,URINE YELLOW; GLUCOSE,URINE >=1000 mg/dL (NEG)
[2018-02-07 11:06] LABS: NITRITE,URINE NEG (NEG); UROBILINOGEN,URINE 0.2 mg/dL (0.2 mg/dL)
[2018-02-07 11:08] LABS: BACTERIA,URINE MOD /HPF (0-FEW); HYALINE CASTS, URINE OCC /HPF; SQUAMOUS EPITHELIAL CELL,UR MOD /LPF
--- NOTE | 2018-02-07 12:01 | RAD ---
Three-view acute abdominal series. HISTORY: Abdominal pain, nausea, constipation 3 views were taken for an acute abdominal series. Lungs are clear on the PA chest. Heart is normal in size without heart failure. There is no effusion. There is no free air on the portable upright view the abdomen. The stomach is mildly distended. The patient's had a cholecystectomy. There is mild gas in the colon. There is no small bowel obstruction. There is mild stool in the colon without definite fecal impaction. IMPRESSION: 1. No acute chest disease. 2. No bowel obstruction or acute finding noted in the abdomen. Electronically signed by: Aneesh Pollock MD (02/07/2018 11:58 AM) [facility]
[2018-02-07 13:16] VITALS: BP 204/133
--- NOTE | 2018-02-07 14:26 | EKG ---
[address] [address] Test Date: 2018-02-07 Test Time: 11:02:51 Pat Name: IKE PRICE Department: Room: 121 A Gender: F Web Assistant: : 1985 Requested By: NEAL PARISI Order Number: [id number] Reading MD: Neftali Everett Measurements Intervals [place] Rate: 86 P: 62 [place]: 148 QRS: 50 QRSD: 88 T: 106 QT: 378 QTc: 455 Interpretive Statements SINUS RHYTHM Electronically Signed On 02-09-2018 11:01:19 CDT by Neftali Everett
[2018-02-07 15:06] VITALS: BP 192/139
[2018-02-07] MEDS ORDERED: ONDANSETRON PF 4 MG/2 ML VIAL. IV PRN (15:45)
[2018-02-07] MEDS ORDERED: ALBUTEROL SULFATE 8GM INHALER. INH SCH (16:00)
[2018-02-07] MEDS: hydrALAZINE 20 MG/ML VIAL. IV PRN (16:10)
[2018-02-07 16:11] LABS: CALCIUM 9.6 mg/dL (8.5-10.1); CREATININE 2.5 mg/dL (0.6-1.0); GFR 27.4; POTASSIUM 4.4 mmol/L (3.5-5.1)
--- NOTE | 2018-02-07 16:14 | RAD ---
CT abdomen and pelvis without contrast. HISTORY: Recurrent pancreatitis, elevated creatinine, nausea and vomiting, abdominal pain CT scan of the abdomen and pelvis was done without contrast. Lung bases are clear. There is no effusion. Liver is normal in appearance. The patient's had a cholecystectomy. Spleen and right adrenal gland are normal. There is a left adrenal adenoma without change from old studies. There is no mass or hydronephrosis or calculus in the kidneys. Bowel pattern is normal. There is no ascites. Uterus is not enlarged. Bladder is unremarkable. Appendix is normal. Pancreas is not optimally evaluated without contrast but there is no peripancreatic fluid. CT evidence of acute pancreatitis is not evident. There is no free air or bowel obstruction. IMPRESSION: 1. There is not CT evidence of an acute pancreatitis. 2. No bowel obstruction. 3. Normal appendix. 4. No other acute finding noted. PQRS Compliance Statement: One or more of the following individualized dose reduction techniques were utilized for this examination: 1. Automated exposure control 2. Adjustment of the mA and/or kV according to patient size 3. Use of iterative reconstruction technique Electronically signed by: Aneesh Pollock MD (02/07/2018 4:10 PM) [facility]
[2018-02-07] MEDS ORDERED: oxyCODONE IR 5 MG TABLET PO PRN (16:15)
[2018-02-07] MEDS ORDERED: ALBUTEROL SULFATE 2.5 MG/3 ML NEBU. NEB PRN (16:15)
--- NOTE | 2018-02-07 16:25 | HP ---
ADMIT DATE: 02/07/2018 HISTORY OF PRESENT ILLNESS: The patient is a 32-year-old -[place] female patient, who came to the Emergency Room, complaining of abdominal pain as well as recurrent nausea, vomiting and abdominal pain that started around 9:00 this morning. She apparently was well. She denied drinking any alcohol, but admits to smoking marijuana. She denied any hematemesis. She denied any chills, rigors or fever. She was evaluated in the Emergency Room and was found to have acute pancreatitis with a serum lipase of 633. Her urinalysis is unremarkable; however, her toxic screen was positive for cannabinoid. She has acute abdomen series, which showed that the lungs are clear and a PA chest, heart is normal in size without heart failure. There is no effusion. There is no free air on the portable upright view of the abdomen. The stomach is mildly distended. The patient had a cholecystectomy. There is mild gas in the colon. There was no small-bowel obstruction. There is mild stool in the colon without definite fecal impaction. The patient was admitted for pain management and to control her blood sugar and high blood pressure. PAST MEDICAL HISTORY: Significant for type 1 diabetes mellitus, diabetic gastroparesis, uncontrolled hypertension, chronic kidney disease, and recurrent pancreatitis. PAST SURGICAL HISTORY: Significant for section and cholecystectomy. FAMILY HISTORY: Father is a 52-year-old, living, has type 2 diabetes. Mother is alive, has sickle cell trait. SOCIAL HISTORY: She is single, on disability. She has 10 months daughter. She smokes a half a pack a day, smokes marijuana regularly, but no alcohol. ALLERGIES: SHE IS ALLERGIC TO KETOROLAC, MORPHINE AND ONDANSETRON. MEDICATIONS: She is currently on following medications: She is on dicyclomine 10 mg 2 times a day; albuterol sulfate, ProAir 2 puffs every 6 hours; hydralazine 25 mg 2 times a day, carvedilol 12.5 mg twice a day, amlodipine 10 mg once a day, spironolactone 50 mg daily, oxycodone 5 mg 4 times a day, gabapentin 100 mg 3 times a day, furosemide 80 mg daily, Protonix 40 mg daily. She is on NovoLog insulin 10 units before meals and Lantus insulin 10 units at bedtime. REVIEW OF SYSTEMS: The patient denied any blurring of vision, cataract, glaucoma or macular degeneration. Denied any earache, tinnitus or sensorineural deafness. Denied any nosebleeds, stuffy nose or postnasal drip. Denied any sore throat, sore tongue, toothache, hoarseness of voice or difficulty swallowing and did complain of recurrent bouts of nausea, vomiting, but no diarrhea or constipation. Denied any hematemesis, melena or hematochezia. Denied any dysuria, frequency or hematuria. Denied any chest pain, shortness of breath, orthopnea or paroxysmal nocturnal dyspnea. Denied any cough, phlegm or hemoptysis. Denied any chills, rigors or fever. PHYSICAL EXAMINATION: GENERAL: On arrival to the Emergency Room, she looked well and was clearly in no apparent respiratory distress, slightly pale, no jaundice, cyanosis or thyromegaly. No jugular venous distention. No limb edema. VITAL SIGNS: Her heart rate was 92, blood pressure was 204/133, temperature was 98.6, respiratory rate was 22 and oxygen saturation was 98% on room air. HEAD, EYES, EARS, NOSE AND THROAT: Showed normocephalic, atraumatic. NECK: Supple. HEART: Showed normal first and second sounds. No gallop, rub or murmur. CHEST: Clear to auscultation. No crepitation or rhonchi. ABDOMEN: Distended, soft, nontender. No guarding or rigidity. No organomegaly. Her hernial orifice intact. Bowel sounds normal. NEUROLOGIC: She was awake, alert, responding appropriately. All her cranial nerves intact. EXTREMITIES: She moves extremities without difficulty. She ambulates without assistance or assistive devices. LABORATORY DATA: Her CBC showed a white cell count of 9100, hemoglobin 11, hematocrit 32, MCV 87, and platelet count of 424,000. Her serum sodium was 137, potassium 4, chloride 103, bicarbonate 29, anion gap of 5, BUN 15, creatinine 2.6, estimated GFR was 26 mL per minute. Her glucose was 305, calcium was 9.4. Total bilirubin, AST, ALT, and alkaline phosphatase were normal. Her total protein was 7.4, albumin 3. Her lipase was 633 and serum test was negative. Her urinalysis showed the urine was yellow, hazy with a pH of 7, specific gravity of 1.020. There was a large amount of protein, large amount of glucose. The urine was negative for ketones and there was trace of blood, negative for nitrite, bilirubin and leukocyte esterase. There are 3-5 rbc's, 1-4 wbc's and moderate amount of bacteria. Her toxicology screen was negative except for cannabinoids. SUMMARY: This is a 32-year-old -[place], who again came, complaining of abdominal pain, recurrent bouts of nausea or vomiting. She is a regular marijuana user, probably has cyclic vomiting syndrome. Her lipase is slightly elevated at 633 and that showed how this reflects pancreatitis given that she has impaired kidney function. PLAN: My plan is to arrange keep the patient n.p.o. for now and arrange for a CT scan of the abdomen and pelvis without contrast and if there is no evidence of any pancreatic inflammation. She probably this is only reflects resistant elevation of serum lipase in the phase of impaired kidney function and most likely explanation for her nausea and vomiting is her marijuana use. We will obviously continue with IV fluid and antiemetic and restart hopefully all her antihypertensive medication as well as her insulin. ДМИТРИЙ AGUAYO MD DR: EFRAÍN/gloria JOB#: [id number] / [id number]
[2018-02-07] MEDS: PROCHLORPERAZINE 10 MG/2 ML VIAL. IV PRN (16:58)
[2018-02-07] MEDS: CARVEDILOL 12.5 MG TABLET PO SCH (17:00)
[2018-02-07] MEDS: HYDROmorphone PF 1 MG/ML DISP.SYRIN IV PRN (17:12)
[2018-02-07] MEDS: INSULIN LISPRO 300 UNITS/3 ML INSULN.PEN. SQ SCH (17:43)
[2018-02-07 20:00] VITALS: BP 207/133
[2018-02-07] MEDS: GABAPENTIN 100 MG CAPSULE. PO SCH (20:31)
[2018-02-07] MEDS: DICYCLOMINE HCL 10 MG CAPSULE PO SCH (20:32)
[2018-02-07] MEDS: hydrALAZINE 25 MG TABLET PO SCH (20:32)
[2018-02-07 23:00] VITALS: BP 159/100
[2018-02-08] MEDS: PROCHLORPERAZINE 10 MG/2 ML VIAL. IV PRN ×2 (00:03→17:13)
[2018-02-08] MEDS: HYDROmorphone PF 1 MG/ML DISP.SYRIN IV PRN ×4 (00:03→20:28)
[2018-02-08 03:00] VITALS: BP 159/100
[2018-02-08 06:25] LABS: HEMATOCRIT 30.7 % (36.0-47.0); HEMOGLOBIN 10.5 g/dL (12.0-15.5); RED BLOOD COUNT 3.55 x10^6/uL (3.50-5.40); RED CELL DISTRIBUTION WIDTH 14.6 % (11.5-14.5); WHITE BLOOD COUNT 8.9 x10^3/uL (4.0-11.0)
[2018-02-08] MEDS: GABAPENTIN 100 MG CAPSULE. PO SCH ×3 (08:45→20:28)
[2018-02-08] MEDS: hydrALAZINE 25 MG TABLET PO SCH ×3 (08:45→20:29)
[2018-02-08] MEDS: FUROSEMIDE 40 MG TABLET PO SCH (08:46)
[2018-02-08] MEDS: SPIRONOLACTONE 25 MG TABLET PO SCH (08:46)
[2018-02-08] MEDS: PANTOPRAZOLE 40 MG TABLET. PO SCH (08:47)
[2018-02-08] MEDS: DICYCLOMINE HCL 10 MG CAPSULE PO SCH ×3 (08:47→20:28)
[2018-02-08] MEDS: amLODIPine BESYLATE 10 MG TABLET PO SCH (08:47)
[2018-02-08] MEDS: CARVEDILOL 12.5 MG TABLET PO SCH ×2 (08:47→17:07)
[2018-02-08] MEDS: INSULIN LISPRO 300 UNITS/3 ML INSULN.PEN. SQ SCH ×3 (08:59→17:00)
[2018-02-08] MEDS ORDERED: INSULIN GLARGINE 300 UNITS/3 ML INSULN.PEN. SQ SCH (09:00)
[2018-02-08 11:44] VITALS: BP 144/100
[2018-02-08 16:41] VITALS: BP 163/101
[2018-02-08 19:47] VITALS: BP 130/87
[2018-02-08 22:33] VITALS: BP 166/112
[2018-02-08] MEDS: hydrALAZINE 20 MG/ML VIAL. IV PRN (22:41)
--- NOTE | 2018-02-08 23:47 | PDOC ---
SUBJECTIVE: I find the patient sitting up on the side of her bed over an emesis basin with some clear sputum contained within, her mother is at the bedside. She is complaining of epigastric pain radiating to her back with some nausea. She is wanting to eat however we discussed how that would be a step back and her current medical care. Lipase range remains elevated at 603, she's had mildly elevated blood pressures which appear to be physiologic with her discomfort. She denies any new or worsening symptoms staff reports that she continues to request more and more pain medications even when she appears to be resting comfortably. OBJECTIVE: Problems: Problems Medical Problems: (1) Cyclical vomiting with nausea Status: Acute (2) Hyperglycemia Status: Acute (3) Marijuana use Status: Acute (4) Renal insufficiency Status: Acute Vital Signs: Vital Signs Date Time Temp Pulse Resp B/P (MAP) Pulse Ox O2 Delivery O2 Flow Rate FiO2 02/08/18 22:41 80 166/112 02/08/18 22:40 18 Room Air 02/08/18 22:33 98.4 98 02/07/18 20:34 18.0 I & O Intake and Output 02/08/18 07:00 Intake Total 430 ml Balance 430 ml Intake Oral 430 ml # Voids 7 Labs: Laboratory Tests Test 02/07/18 09:40 02/07/18 10:19 02/07/18 10:37 02/07/18 15:55 Bedside Urine HCG, Qualitative hcg negative (Negative) Urine Collection Type Unknown Urine Color Yellow Urine Clarity Hazy Urine pH 7.0 Urine Specific [place] 1.020 Urine Protein >100 mg/dl (NEG-TRACE) Urine Glucose (UA) >=1000 mg/dL (NEG) Urine Ketones (Stick) Neg mg/dL (NEG) Urine Blood Trace (NEG) Urine Nitrite Neg (NEG) Urine Bilirubin Neg (NEG) Urine Urobilinogen Dipstick 0.2 mg/dL (0.2 mg/dL) Urine Leukocyte Esterase Neg (NEG) Urine RBC 3-5 /HPF (0-2) Urine WBC 1-4 /HPF (0-4) Urine Squamous Epithelial Cells Mod /LPF Urine Bacteria Mod /HPF (0-FEW) Urine Hyaline Casts Occ /HPF Serum Test, Qualitative Negative (NEG) Urine Opiates Screen Neg (NEG) Urine Methadone Screen Neg (NEG) Urine Barbiturates Neg (NEG) Urine Phencyclidine Screen Neg (NEG) Urine Amphetamine/Methamphetamine Neg (NEG) Urine Benzodiazepines Screen Neg (NEG) Urine Cocaine Screen Neg (NEG) Urine Cannabinoids Screen Pos (NEG) Urine Ethyl Alcohol Neg (NEG) White Blood Count 9.1 x10^3/uL (4.0-11.0) Red Blood Count 3.64 x10^6/uL (3.50-5.40) Hemoglobin 10.6 g/dL (12.0-15.5) Hematocrit 31.5 % (36.0-47.0) Mean Corpuscular Volume 87 fL (79-100) Mean Corpuscular Hemoglobin 29 pg (25-35) Mean Corpuscular Hemoglobin Concent 34 g/dL (31-37) Red Cell Distribution Width 14.4 % (11.5-14.5) Platelet Count 424 x10^3/uL (140-400) Neutrophils (%) (Auto) 65 % (31-73) Lymphocytes (%) (Auto) 27 % (24-48) Monocytes (%) (Auto) 6 % (0-9) Eosinophils (%) (Auto) 1 % (0-3) Basophils (%) (Auto) 1 % (0-3) Neutrophils # (Auto) 5.9 x10^3uL (1.8-7.7) Lymphocytes # (Auto) 2.4 x10^3/uL (1.0-4.8) Monocytes # (Auto) 0.6 x10^3/uL (0.0-1.1) Eosinophils # (Auto) 0.1 x10^3/uL (0.0-0.7) Basophils # (Auto) 0.1 x10^3/uL (0.0-0.2) Sodium Level 137 mmol/L (136-145) 138 mmol/L (136-145) Potassium Level 4.0 mmol/L (3.5-5.1) 4.4 mmol/L (3.5-5.1) Chloride Level 103 mmol/L (98-107) 104 mmol/L (98-107) Carbon Dioxide Level 29 mmol/L (21-32) 29 mmol/L (21-32) Anion Gap 5 (6-14) 5 (6-14) Blood Urea Nitrogen 15 mg/dL (7-20) 14 mg/dL (7-20) Creatinine 2.6 mg/dL (0.6-1.0) 2.5 mg/dL (0.6-1.0) Estimated GFR (Cockcroft-Gault) 26.2 27.4 BUN/Creatinine Ratio 6 (6-20) Glucose Level 305 mg/dL (70-99) 236 mg/dL (70-99) Calcium Level 9.4 mg/dL (8.5-10.1) 9.6 mg/dL (8.5-10.1) Total Bilirubin 0.2 mg/dL (0.2-1.0) Aspartate Amino Transf (AST/SGOT) 13 U/L (15-37) Alanine Aminotransferase (ALT/SGPT) 15 U/L (14-59) Alkaline Phosphatase 115 U/L (46-116) Troponin I Quantitative < 0.017 ng/mL (0-0.055) Total Protein 7.4 g/dL (6.4-8.2) Albumin 3.0 g/dL (3.4-5.0) Albumin/Globulin Ratio 0.7 (1.0-1.7) Lipase 633 U/L (73-393) Test 02/07/18 16:51 02/08/18 06:07 02/08/18 07:45 02/08/18 11:13 Glucose (Fingerstick) 227 mg/dL (70-99) 279 mg/dL (70-99) 34 mg/dL (70-99) White Blood Count 8.9 x10^3/uL (4.0-11.0) Red Blood Count 3.55 x10^6/uL (3.50-5.40) Hemoglobin 10.5 g/dL (12.0-15.5) Hematocrit 30.7 % (36.0-47.0) Mean Corpuscular Volume 86 fL (79-100) Mean Corpuscular Hemoglobin 30 pg (25-35) Mean Corpuscular Hemoglobin Concent 34 g/dL (31-37) Red Cell Distribution Width 14.6 % (11.5-14.5) Platelet Count 316 x10^3/uL (140-400) Lipase 603 U/L (73-393) Test 02/08/18 11:30 02/08/18 11:42 02/08/18 17:08 02/08/18 20:25 Glucose (Fingerstick) 61 mg/dL (70-99) 95 mg/dL (70-99) 128 mg/dL (70-99) 204 mg/dL (70-99) Physical Exam: Constitutional: Well developed, well nourished, sitting up over an emesis basin complaining of mild abdominal pain and nausea HENT: Normocephalic, atraumatic, bilateral external ears normal, oropharynx moist, no oral exudates, nose normal. Eyes: JONATHAN, EOMI, conjunctiva normal, no discharge. Neck: Normal range of motion, no tenderness, supple, no stridor. Cardiovascular: S1 N,S2N. No murmurs. No rubs or clicks. Thorax and Lungs: Normal respiration. Normal chest expansion. Normal to percuss. Equal breath sounds. No crackles. No wheeze. Abdomen: Bowel sounds normal, soft, mildly distended generalized epigastric tenderness no rebound or guard no masses no skin changes Skin: Warm, dry, no erythema, no rash. Back: No tenderness, no CVA tenderness. Extremities: Intact distal pulses, no tenderness, no cyanosis, no clubbing, ROM intact, no edema. Neurologic: Alert and oriented X 3, normal motor function, normal sensory function, no focal deficits noted. Psychologic: Affect normal, judgement normal, mood normal. ASSESSMENT: Acute pancreatitis Cyclic vomiting syndrome Hypokalemia Marijuana abuse SUKI ALBERTO DO Feb 08, 2018 23:47
[2018-02-09] MEDS: PROCHLORPERAZINE 10 MG/2 ML VIAL. IV PRN ×2 (01:40→10:18)
[2018-02-09] MEDS: HYDROmorphone PF 1 MG/ML DISP.SYRIN IV PRN ×3 (01:41→08:26)
[2018-02-09 05:06] VITALS: BP 131/88
[2018-02-09] MEDS: DICYCLOMINE HCL 10 MG CAPSULE PO SCH (08:20)
[2018-02-09] MEDS: CARVEDILOL 12.5 MG TABLET PO SCH (08:20)
[2018-02-09] MEDS: PANTOPRAZOLE 40 MG TABLET. PO SCH (08:20)
[2018-02-09] MEDS: FUROSEMIDE 40 MG TABLET PO SCH (08:21)
[2018-02-09] MEDS: GABAPENTIN 100 MG CAPSULE. PO SCH (08:21)
[2018-02-09] MEDS: amLODIPine BESYLATE 10 MG TABLET PO SCH (08:21)
[2018-02-09] MEDS: hydrALAZINE 25 MG TABLET PO SCH (08:21)
[2018-02-09] MEDS: SPIRONOLACTONE 25 MG TABLET PO SCH (08:22)
[2018-02-09] MEDS ORDERED: DEXTROSE 50% 25 GM / 50ML DISP.SYRIN. IV PRN (09:00)
[2018-02-09] MEDS: INSULIN LISPRO 300 UNITS/3 ML INSULN.PEN. SQ SCH ×2 (09:32→12:00)
[2018-02-09 11:35] VITALS: BP 150/97
--- NOTE | 2018-02-09 14:26 | PDOC3 ---
Discharge Summary Visit Information Date of Admission: Feb 07, 2018 Date of Discharge: Feb 09, 2018 Admitting Diagnosis: pancreatitis, cyclic vomiting syndrome, marijuana abuse, Final Diagnosis Problems Medical Problems: (1) Anemia Status: Acute (2) Cyclical vomiting with nausea Status: Acute (3) Hyperglycemia Status: Acute (4) Marijuana use Status: Acute (5) Renal insufficiency Status: Acute Brief Hospital Course Allergies Allergies Coded Allergies Type Severity Reaction Last Updated Verified ketorolac Allergy Intermediate 01/29/18 Yes morphine Allergy Intermediate Unknown 01/29/18 Yes ondansetron Allergy Intermediate Itching 01/29/18 Yes Vital Signs Vital Signs Date Time Temp Pulse Resp B/P (MAP) Pulse Ox O2 Delivery O2 Flow Rate FiO2 02/09/18 11:35 98.2 77 20 150/97 (114) 100 Room Air 02/07/18 20:34 18.0 Lab Results Laboratory Tests Test 02/07/18 15:55 02/07/18 16:51 02/08/18 06:07 02/08/18 07:45 Sodium Level 138 mmol/L (136-145) Potassium Level 4.4 mmol/L (3.5-5.1) Chloride Level 104 mmol/L (98-107) Carbon Dioxide Level 29 mmol/L (21-32) Anion Gap 5 (6-14) Blood Urea Nitrogen 14 mg/dL (7-20) Creatinine 2.5 mg/dL (0.6-1.0) Estimated GFR (Cockcroft-Gault) 27.4 Glucose Level 236 mg/dL (70-99) Calcium Level 9.6 mg/dL (8.5-10.1) Glucose (Fingerstick) 227 mg/dL (70-99) 279 mg/dL (70-99) White Blood Count 8.9 x10^3/uL (4.0-11.0) Red Blood Count 3.55 x10^6/uL (3.50-5.40) Hemoglobin 10.5 g/dL (12.0-15.5) Hematocrit 30.7 % (36.0-47.0) Mean Corpuscular Volume 86 fL (79-100) Mean Corpuscular Hemoglobin 30 pg (25-35) Mean Corpuscular Hemoglobin Concent 34 g/dL (31-37) Red Cell Distribution Width 14.6 % (11.5-14.5) Platelet Count 316 x10^3/uL (140-400) Lipase 603 U/L (73-393) Test 02/08/18 11:13 02/08/18 11:30 02/08/18 11:42 02/08/18 17:08 Glucose (Fingerstick) 34 mg/dL (70-99) 61 mg/dL (70-99) 95 mg/dL (70-99) 128 mg/dL (70-99) Test 02/08/18 20:25 02/09/18 07:36 02/09/18 07:55 02/09/18 11:47 Glucose (Fingerstick) 204 mg/dL (70-99) 356 mg/dL (70-99) 180 mg/dL (70-99) Lipase 360 U/L (73-393) Brief Hospital Course Ms. Escobar is a 32 old female with history of pancreatitis and cannabinol and induce cyclic vomiting syndrome who presented to the emergency department with 1 day of epigastric pain, nausea and vomiting. Denied travel or bad food exposure no fever or chills no blood in emesis no changes with bowel or bladder. Acute abdominal series and CT abdomen and pelvis unremarkable, her potassium was at times critically low and her lipase is markedly elevated over 600. She was admitted for bowel rest hydration and antiemetics and pain control. She has markedly improved, her lipase and potassium have normalized. Nursing reports that she had one episode of nausea and vomiting earlier today when, against the nurse's instruction, she ate a being burrito from [employer] brought to her by her mother. Other than that slight misstep patient remains overall improved. I find her sitting up on the edge of the bed with her mother at the bedside and face timing what appears to be her daughter. She was smiling and laughing and in no apparent distress and medically stable for discharge home. Constitutional: Well developed, well nourished, no acute distress, non-toxic appearance. HENT: Normocephalic, atraumatic, bilateral external ears normal, oropharynx moist, no oral exudates, nose normal. Eyes: JONATHAN, EOMI, conjunctiva normal, no discharge. Neck: Normal range of motion, no tenderness, supple, no stridor. Cardiovascular: JVP not elevated. No carotid bruit. Nor precordial pulsations or heaves. S1 N,S2N. No murmurs. No rubs or clicks. Thorax and Lungs: Normal respiration. Normal chest expansion. Normal to percuss. Equal breath sounds. No crackles. No wheeze. Abdomen: Bowel sounds normal, soft, no tenderness, no masses, no pulsatile masses. Skin: Warm, dry, no erythema, no rash. Back: No tenderness, no CVA tenderness. Extremities: Intact distal pulses, no tenderness, no cyanosis, no clubbing, ROM intact, no edema. Neurologic: Alert and oriented X 3, normal motor function, normal sensory function, no focal deficits noted. Psychologic: Affect normal, judgement normal, mood normal. Discharge Information Condition at Discharge: Improved Follow Up: Weeks Disposition/Orders: D/C to Home Dischare Medications Current Medications Sodium Chloride 1,000 ml @ 1,000 mls/hr 1X ONCE IV Last administered on at 10:44; Start 02/07/18 at 10:30; Stop 02/07/18 at 11:29; Status DC Promethazine HCl 12.5 mg/Sodium Chloride 50.5 ml @ 101 mls/hr PRN Q6HRS PRN IV NAUSEA/VOMITING; Start 02/07/18 at 10:30; Stop 02/07/18 at 10:30; Status DC Fentanyl Citrate (Fentanyl 2ml Vial) 100 mcg 1X ONCE IV Last administered on at 10:44; Start 02/07/18 at 10:30; Stop 02/07/18 at 10:32; Status DC Metoclopramide HCl (Reglan Vial) 5 mg 1X ONCE IV Last administered on at 10:43; Start 02/07/18 at 10:30; Stop 02/07/18 at 10:32; Status DC Fentanyl Citrate (Fentanyl 2ml Vial) 100 mcg 1X ONCE IV Last administered on at 12:12; Start 02/07/18 at 12:15; Stop 02/07/18 at 12:16; Status DC Fentanyl Citrate (Fentanyl 2ml Vial) 50 mcg PRN Q4HRS PRN IV PAIN Last administered on 02/08/18at 22:40; Start 02/07/18 at 15:45 Ondansetron HCl (Zofran) 4 mg Q4H PRN IV NAUSEA/VOMITING; Start 02/07/18 at 15: 45; Stop 02/07/18 at 16:30; Status DC Hydralazine HCl (Apresoline) 10 mg PRN Q4HRS PRN IV ELEVATED BP, SEE COMMENTS Last administered on 02/08/18at 22:41; Start 02/07/18 at 15:45 Albuterol Sulfate (Ventolin Hfa Inhaler) 2 puff PRN Q6HRS INH ; Start 02/07/18 at 16:00; Stop 02/07/18 at 16:08; Status DC Dicyclomine HCl (Bentyl) 10 mg TID PO Last administered on 02/09/18at 08:20; Start 02/07/18 at 21:00 Gabapentin (Neurontin) 100 mg TID PO Last administered on 02/09/18at 08:21; Start 02/07/18 at 21:00 Insulin Glargine (Lantus) 10 units DAILY SQ Last administered on 02/08/18at 09: 00; Start 02/08/18 at 09:00; Stop 02/09/18 at 08:59; Status DC Amlodipine Besylate (Norvasc) 10 mg DAILY PO Last administered on 02/09/18 08: 21; Start 02/08/18 at 09:00 Carvedilol (Coreg) 12.5 mg BIDWMEALS PO Last administered on 02/09/18at 08:20; Start 02/07/18 at 17:00 Furosemide (Lasix) 80 mg DAILY PO Last administered on 02/09/18at 08:21; Start 02/08/18 at 09:00 Hydralazine HCl (Apresoline) 25 mg TID PO Last administered on 02/09/18at 08:21 ; Start 02/07/18 at 21:00 Insulin Human Lispro (HumaLOG) 10 units TIDWMEALS SQ Last administered on at 08:59; Start 02/07/18 at 17:00; Stop 02/09/18 at 09:23; Status DC Oxycodone HCl (Roxicodone) 5 mg PRN QID PRN PO PAIN; Start 02/07/18 at 16:15 Pantoprazole Sodium (Protonix) 40 mg DAILYAC PO Last administered on 02/09/18at 08:20; Start 02/08/18 at 07:30 Spironolactone (Aldactone) 50 mg DAILY PO Last administered on 02/09/18at 08:22 ; Start 02/08/18 at 09:00 Albuterol Sulfate (Ventolin) 2.5 mg PRN Q6HRS PRN NEB SHORTNESS OF BREATH; Start 02/07/18 at 16:15 Prochlorperazine Edisylate (Compazine) 10 mg PRN Q6HRS PRN IV NAUSEA/VOMITING Last administered on 02/09/18at 10:18; Start 02/07/18 at 16:30 Hydromorphone HCl (Dilaudid) 1 mg PRN Q4HRS PRN IV PAIN Last administered on at 09:40; Start 02/07/18 at 17:15; Stop 02/08/18 at 16:44; Status DC Influenza Virus Vaccine (Afluria Trivalent [id number] Syringe) 0.5 ml ONCE ONCE VAX IM Last administered on 02/08/18at 14:00; Start 02/08/18 at 13:00; Stop at 13:01; Status DC Hydromorphone HCl (Dilaudid) 1 mg PRN Q3HRS PRN IV PAIN Last administered on at 08:26; Start 02/08/18 at 16:45 Insulin Human Lispro (HumaLOG) 0-7 UNITS TIDWMEALS SQ Last administered on 02/09at 09:32; Start 02/09/18 at 09:30 Dextrose 12.5 gm PRN Q15MIN PRN IV SEE COMMENTS; Start 02/09/18 at 09:00 Active Scripts Active Protonix (Pantoprazole Sodium) 40 Mg Tablet.dr 1 Tab PO DAILY 30 Days Neurontin (Gabapentin) 100 Mg Capsule 100 Mg PO TID 30 Days Dicyclomine Hcl 10 Mg Capsule 1 Cap PO TID Reported Oxycodone Hcl 5 Mg Capsule 1 Cap PO QID PRN Hydralazine Hcl 25 Mg Tablet 1 Tab PO TID Aldactone (Spironolactone) 50 Mg Tablet 1 Tab PO DAILY LAST DOSE GIVEN: DATE: TIME: NEXT DOSE DUE: DATE: TIME: Lasix (Furosemide) 80 Mg Tablet 1 Tab PO DAILY LAST DOSE GIVEN: DATE: TIME: NEXT DOSE DUE: DATE: TIME: Coreg (Carvedilol) 12.5 Mg Tablet 1 Tab PO BID LAST DOSE GIVEN: DATE: TIME: NEXT DOSE DUE: DATE: TIME: Novolog Flexpen (Insulin Aspart) 100 Unit/1 Ml Insuln.pen 10 Unit SQ TIDWMEALS LAST DOSE GIVEN: DATE: TIME: NEXT DOSE DUE: DATE: TIME: Lantus Solostar (Insulin Glargine,Hum.rec.anlog) 100 Unit/1 Ml Insuln.pen 10 Unit SQ DAILY LAST DOSE GIVEN: DATE: TIME: NEXT DOSE DUE: DATE: TIME: Norvasc (Amlodipine Besylate) 10 Mg Tablet 1 Tab PO DAILY LAST DOSE GIVEN: DATE: TIME: NEXT DOSE DUE: DATE: TIME: Proair Hfa Inhaler (Albuterol Sulfate) 8.5 Gm Hfa.aer.ad 2 Puff INH PRN Q6HRS LAST DOSE GIVEN: DATE: TIME: NEXT DOSE DUE: DATE: TIME: Patient Instructions Patient Instuctions Follow-up with her doctor in 3-5 days for recheck and further evaluation and treatment as indicated. SUKI ALBERTO DO Feb 09, 2018 14:26
== END 2018-02-09 15:00 | disposition home or self-care (01) | DRG 439 ==
LOC: ER 10:09 → 1 SOUTH 12:55
PROVIDERS: ADMIT Internal Medicine; ATTEND Internal Medicine
DX: K85.90 Acute pancreatitis without necrosis or infection, unspecified (principal); E44.0 Moderate protein-calorie malnutrition; K31.89 Other diseases of stomach and duodenum; K86.1 Other chronic pancreatitis; D64.9 Anemia, unspecified; E10.22 Type 1 diabetes mellitus with diabetic chronic kidney disease; E10.65 Type 1 diabetes mellitus with hyperglycemia; F17.210 Nicotine dependence, cigarettes, uncomplicated; I12.9 Hypertensive chronic kidney disease with stage 1 through stage 4 chronic kidney disease, or unspecified chronic kidney disease; K21.9 Gastro-esophageal reflux disease without esophagitis; N18.9 Chronic kidney disease, unspecified; E10.43 Type 1 diabetes mellitus with diabetic autonomic (poly)neuropathy; K31.84 Gastroparesis; R11.2 Nausea with vomiting, unspecified; Z83.2 Family history of diseases of the blood and blood-forming organs and certain disorders involving the immune mechanism; Z83.3 Family history of diabetes mellitus; Z90.49 Acquired absence of other specified parts of digestive tract; Z98.51 Tubal ligation status; Z88.5 Allergy status to narcotic agent; Z88.8 Allergy status to other drugs, medicaments and biological substances; E87.6 Hypokalemia; F12.10 Cannabis abuse, uncomplicated
CPT/HCPCS: 36415; 74022; 74176; 80048; 80053; 80307; 81001; 81025; 82947; 83690; 84484; 84703; 85025; 85027; 87086; 90471; 90756; 93005; 96361; 96374; 96375; J0360; J0780; J1170; J1815; J2765; J3010; 99285-25; G0479; J7030; Q2035

== ENCOUNTER 2018-02-15 13:34 | Inpatient (IN) | payer OTHER ==
[~2018-02-15] VITALS: Ht 167.6 cm; Wt 66.9 kg
[2018-02-15] MEDS ORDERED: PROCHLORPERAZINE 10 MG/2 ML VIAL. IV ONE (14:00)
[2018-02-15] MEDS ORDERED: cloNIDine HCL 0.1 MG TABLET PO ONE ×2 (14:00→18:15)
[2018-02-15] MEDS ORDERED: HYDROmorphone PF 1 MG/ML DISP.SYRIN IV ONE (14:30)
[2018-02-15 14:39] LABS: CALCIUM 8.9 mg/dL (8.5-10.1); CREATININE 2.5 mg/dL (0.6-1.0); GFR 27.4; POTASSIUM 4.3 mmol/L (3.5-5.1)
[2018-02-15] MEDS ORDERED: HYDROmorphone PF 1 MG/ML DISP.SYRIN IM ONE (14:45)
[2018-02-15 14:51] LABS: ALBUMIN 2.8 g/dL (3.4-5.0); ALBUMIN/GLOBULIN RATIO 0.7 (1.0-1.7); TOTAL BILIRUBIN 0.1 mg/dL (0.2-1.0); TOTAL PROTEIN 6.9 g/dL (6.4-8.2)
[2018-02-15] MEDS ORDERED: PROMETHAZINE 25 MG/ML VIAL IV ONE ×2 (14:52→14:53)
[2018-02-15] MEDS ORDERED: PROMETHAZINE IM 25 MG/ML VIAL IM ONE (15:00)
[2018-02-15 15:39] LABS: BASO # 0.1 x10^3/uL (0.0-0.2); BASO % 1 % (0-3); EOS # 0.1 x10^3/uL (0.0-0.7); EOS % 1 % (0-3); HEMATOCRIT 30.7 % (36.0-47.0); HEMOGLOBIN 10.4 g/dL (12.0-15.5); LYMPH % 19 % (24-48); MEAN CORPUSCULAR HEMOGLOBIN 29 pg (25-35); MEAN CORPUSCULAR HGB CONC 34 g/dL (31-37); MEAN CORPUSCULAR VOLUME 86 fL (79-100); MONO # 0.5 x10^3/uL (0.0-1.1); MONO % 5 % (0-9); NEUT % 75 % (31-73); PLATELET COUNT 314 x10^3/uL (140-400); RED BLOOD COUNT 3.55 x10^6/uL (3.50-5.40); RED CELL DISTRIBUTION WIDTH 14.6 % (11.5-14.5); WHITE BLOOD COUNT 10.7 x10^3/uL (4.0-11.0)
[2018-02-15] MEDS ORDERED: IV NORMAL SALINE 1,000ML 1,000 ML IV ONE ×2 (15:45)
[2018-02-15] MEDS ORDERED: INSULIN REGULAR 100 UNIT/ML 3ML VIAL. IV ONE (16:00)
[2018-02-15] MEDS ORDERED: METOPROLOL TARTRATE 5 MG/5 ML VIAL. IV ONE ×3 (16:30→21:30)
--- NOTE | 2018-02-15 18:02 | PHYS DOC ---
Past History Past Medical History: Anemia, Diabetes, GERD, Hypertension, Pancreatitis, Renal Failure, Vascular Disease, Other Past Surgical History: Cholecystectomy, , Tubal ligation Alcohol Use: None Drug Use: None Adult General Chief Complaint Chief Complaint: ABDOMINAL PAIN HPI HPI 32-year-old female presents with abdominal pain and vomiting. The patient is a known diabetic with poor compliance. She states that her blood sugar was under 200 last night and today it was much higher. She started vomiting today and cannot stop. She has diffuse abdominal pain that started after the vomiting. Patient denies fever or chills. She has not had diarrhea or other symptoms of illness. Patient has a history of drug use. Review of Systems Review of Systems Constitutional: Denies fever or chills [] Eyes: Denies change in visual acuity, redness, or eye pain [] HENT: Denies nasal congestion or sore throat [] Respiratory: Denies cough or shortness of breath [] Cardiovascular: No additional information not addressed in HPI [] GI: Denies abdominal pain, nausea, vomiting, bloody stools or diarrhea [] : Denies dysuria or hematuria [] Musculoskeletal: Denies back pain or joint pain [] Integument: Denies rash or skin lesions [] Neurologic: Denies headache, focal weakness or sensory changes [] Endocrine: Denies polyuria or polydipsia [] All other systems were reviewed and found to be within normal limits, except as documented in this note. Current Medications Current Medications Current Medications Medications (Trade) Dose Ordered Sig/Rick Start Time Stop Time Status Last Admin Dose Admin Clonidine HCl (Catapres) 0.1 mg 1X ONCE 02/15/18 14:00 02/15/18 14:01 DC 02/15/18 15:10 0.1 MG Hydromorphone HCl (Dilaudid) 1 mg 1X ONCE 02/15/18 14:45 02/15/18 14:46 DC 02/15/18 14:57 1 MG Insulin Human Regular (HumuLIN R VIAL) 10 unit 1X ONCE 02/15/18 16:00 02/15/18 16:01 DC 02/15/18 16:03 10 UNIT Metoprolol Tartrate (Lopressor Vial) 5 mg 1X ONCE 02/15/18 16:30 02/15/18 16:31 DC 02/15/18 16:28 5 MG Prochlorperazine Edisylate (Compazine) 10 mg 1X ONCE 02/15/18 14:00 02/15/18 14:01 DC Promethazine HCl (Phenergan Im) 25 mg 1X ONCE 02/15/18 15:00 02/15/18 15:03 DC 02/15/18 14:57 25 MG Promethazine HCl (Phenergan) 25 mg STK-MED ONCE 02/15/18 14:53 02/15/18 14:54 DC Sodium Chloride 1,000 ml @ 1,000 mls/hr 1X ONCE 02/15/18 15:45 02/15/18 16:44 DC 02/15/18 17:22 1,000 MLS/HR Allergies Allergies Allergies Coded Allergies Type Severity Reaction Last Updated Verified ketorolac Allergy Intermediate 01/29/18 Yes morphine Allergy Intermediate Unknown 01/29/18 Yes ondansetron Allergy Intermediate Itching 01/29/18 Yes Physical Exam Physical Exam Constitutional: Well developed, well nourished, no acute distress, non-toxic appearance. [] HENT: Normocephalic, atraumatic, bilateral external ears normal, oropharynx moist, no oral exudates, nose normal. [] Eyes: PERRLA, EOMI, conjunctiva normal, no discharge. [] Neck: Normal range of motion, no tenderness, supple, no stridor. [] Cardiovascular:Heart rate regular rhythm, no murmur [] Lungs & Thorax: Bilateral breath sounds clear to auscultation [] Abdomen: Bowel sounds normal, soft, no tenderness, no masses, no pulsatile masses. [] Skin: Warm, dry, no erythema, no rash. [] Back: No tenderness, no CVA tenderness. [] Extremities: No tenderness, no cyanosis, no clubbing, ROM intact, no edema. [] Neurologic: Alert and oriented X 3, normal motor function, normal sensory function, no focal deficits noted. [] Psychologic: Affect normal, judgement normal, mood normal. [] Current Patient Data Vital Signs Vital Signs Date Time Temp Pulse Resp B/P (MAP) Pulse Ox O2 Delivery O2 Flow Rate FiO2 02/15/18 16:33 69 16 203/119 (147) 100 Room Air 02/15/18 13:34 98.4 Lab Results Laboratory Tests Test 02/15/18 13:52 02/15/18 14:10 02/15/18 15:23 02/15/18 16:17 Glucose (Fingerstick) 466 mg/dL (70-99) H 248 mg/dL (70-99) H Sodium Level 131 mmol/L (136-145) L Potassium Level 4.3 mmol/L (3.5-5.1) Chloride Level 100 mmol/L (98-107) Carbon Dioxide Level 23 mmol/L (21-32) Anion Gap 8 (6-14) Blood Urea Nitrogen 18 mg/dL (7-20) Creatinine 2.5 mg/dL (0.6-1.0) H Estimated GFR (Cockcroft-Gault) 27.4 BUN/Creatinine Ratio 7 (6-20) Glucose Level 455 mg/dL (70-99) H Calcium Level 8.9 mg/dL (8.5-10.1) Total Bilirubin 0.1 mg/dL (0.2-1.0) L Aspartate Amino Transferase (AST) 15 U/L (15-37) Alanine Aminotransferase (ALT) 14 U/L (14-59) Alkaline Phosphatase 101 U/L (46-116) Total Protein 6.9 g/dL (6.4-8.2) Albumin 2.8 g/dL (3.4-5.0) L Albumin/Globulin Ratio 0.7 (1.0-1.7) L Lipase 641 U/L (73-393) H White Blood Count 10.7 x10^3/uL (4.0-11.0) Red Blood Count 3.55 x10^6/uL (3.50-5.40) Hemoglobin 10.4 g/dL (12.0-15.5) L Hematocrit 30.7 % (36.0-47.0) L Mean Corpuscular Volume 86 fL (79-100) Mean Corpuscular Hemoglobin 29 pg (25-35) Mean Corpuscular Hemoglobin Concent 34 g/dL (31-37) Red Cell Distribution Width 14.6 % (11.5-14.5) H Platelet Count 314 x10^3/uL (140-400) Neutrophils (%) (Auto) 75 % (31-73) H Lymphocytes (%) (Auto) 19 % (24-48) L Monocytes (%) (Auto) 5 % (0-9) Eosinophils (%) (Auto) 1 % (0-3) Basophils (%) (Auto) 1 % (0-3) Neutrophils # (Auto) 8.0 x10^3uL (1.8-7.7) H Lymphocytes # (Auto) 2.0 x10^3/uL (1.0-4.8) Monocytes # (Auto) 0.5 x10^3/uL (0.0-1.1) Eosinophils # (Auto) 0.1 x10^3/uL (0.0-0.7) Basophils # (Auto) 0.1 x10^3/uL (0.0-0.2) Test 02/15/18 17:03 Glucose (Fingerstick) 70 mg/dL (70-99) EKG EKG [] Radiology/Procedures Radiology/Procedures [] Course & Med Decision Making Course & Med Decision Making Pertinent Labs and Imaging studies reviewed. (See chart for details) The patient was extremely difficult to get an IV line. Once access was established, she was given 2 L normal saline, 10 units of insulin IV. She was given 1 mg of Dilaudid IM as well as 25 mg of Compazine IM. This controlled the patient's pain. She was able to stop vomiting. Her repeat blood sugar was in the 200s. Her third blood sugar was 70. She was then given some juice to drink. Her blood sugar is now 126. Her lipase is in the 600s, but a review of her chart shows that this is frequently the case. She was recently hospitalized for pancreatitis so this is likely an improving number. The patient is feeling better overall. Her blood sugar seemed to rapidly improved. The patient's blood pressures extremely high. Review of her chart shows that this is common for her. She has not been taking her blood pressure medicines as prescribed. I gave her 5 mg of metoprolol IV as well as 2 rounds of clonidine by mouth. Her blood pressure improved some, but it is still quite high. The patient no longer has chest discomfort. She states that she feels well and would like to go home. A reiterated the importance of her taking her blood pressure medicines. She is stable for discharge at this time. [] Dragon Disclaimer Dragon Disclaimer This electronic medical record was generated, in whole or in part, using a voice recognition dictation system. Departure Departure: Referrals: CHARO CROOK MD (PCP) ARIELA BOND DO Feb 15, 2018 18:02
[2018-02-15] MEDS ORDERED: cloNIDine HCL 0.1 MG TABLET ONE (18:14)
[2018-02-15] MEDS ORDERED: HYDROmorphone PF 2 MG/ML VIAL ONE (21:16)
[2018-02-15] MEDS ORDERED: HYDROmorphone PF 2 MG/ML VIAL SQ ONE (21:30)
[2018-02-15] MEDS ORDERED: cloNIDine TTS-2 1 PATCH PATCH TD STA (21:30)
[2018-02-15] MEDS ORDERED: cloNIDine TTS-2 1 PATCH PATCH TD ONE (21:30)
[2018-02-15 21:36] LABS: BACTERIA,URINE FEW /HPF (0-FEW); BILIRUBIN,URINE NEG (NEG); CLARITY,URINE CLEAR; COLOR,URINE STRAW; GLUCOSE,URINE >=1000 mg/dL (NEG); NITRITE,URINE NEG (NEG); RBC,URINE RARE /HPF (0-2); SQUAMOUS EPITHELIAL CELL,UR FEW /LPF; UROBILINOGEN,URINE 0.2 mg/dL (0.2 mg/dL); WBC,URINE RARE /HPF (0-4)
[2018-02-15 21:52] LABS: AMPHETAMINE/METHAMPHETAMINE NEG (NEG); BARBITURATES NEG (NEG); BENZODIAZEPINES NEG (NEG); CANNABINOIDS POS (NEG); COCAINE NEG (NEG); METHADONE NEG (NEG); OPIATES NEG (NEG); PHENCYCLIDINE NEG (NEG)
[2018-02-15 22:09] VITALS: BP 173/114
[2018-02-16] VITALS (7 sets, daily range): BP systolic 148–174; BP diastolic 89–131
[2018-02-16] MEDS ORDERED: ALBUTEROL SULFATE 2.5 MG/3 ML NEBU. NEB PRN (01:00)
[2018-02-16] MEDS ORDERED: POTASSIUM CHLORIDE 20 MEQ TABLET.ER. PO SCH (01:00)
[2018-02-16] MEDS ORDERED: amLODIPine BESYLATE 10 MG TABLET ONE (01:13)
[2018-02-16] MEDS ORDERED: hydrALAZINE 25 MG TABLET PO ONE (01:30)
[2018-02-16] MEDS ORDERED: CARVEDILOL 12.5 MG TABLET PO ONE (01:30)
[2018-02-16] MEDS: amLODIPine BESYLATE 10 MG TABLET PO SCH (01:34)
[2018-02-16 06:27] LABS: GFR 35.4
[2018-02-16 06:29] LABS: POTASSIUM 4.9 mmol/L (3.5-5.1)
[2018-02-16] MEDS: POTASSIUM CHLORIDE 20 MEQ TABLET.ER. PO SCH ×2 (07:23→21:36)
[2018-02-16] MEDS ORDERED: hydrALAZINE 25 MG TABLET ONE (07:29)
[2018-02-16] MEDS ORDERED: DICYCLOMINE HCL 10 MG CAPSULE ONE (07:29)
[2018-02-16] MEDS ORDERED: FUROSEMIDE 80 MG TABLET ONE (07:29)
[2018-02-16] MEDS ORDERED: GABAPENTIN 100 MG CAPSULE. PO ONE (07:29)
[2018-02-16] MEDS: GABAPENTIN 100 MG CAPSULE. PO SCH ×3 (07:32→21:37)
[2018-02-16] MEDS: DICYCLOMINE HCL 10 MG CAPSULE PO SCH ×3 (07:32→21:36)
[2018-02-16] MEDS: CARVEDILOL 12.5 MG TABLET PO SCH ×2 (07:32→17:06)
[2018-02-16] MEDS: PANTOPRAZOLE 40 MG TABLET. PO SCH (07:32)
[2018-02-16] MEDS: FUROSEMIDE 80 MG TABLET PO SCH (07:33)
[2018-02-16] MEDS: hydrALAZINE 25 MG TABLET PO SCH ×3 (07:33→21:37)
[2018-02-16] MEDS: IV NORMAL SALINE 1,000ML 1,000 ML IV SCH ×2 (07:44→17:59)
[2018-02-16] MEDS ORDERED: AMLODIPINE BESYLATE PO SCH (09:00)
[2018-02-16] MEDS ORDERED: cloNIDine TTS-3 1 PATCH PATCH TD SCH (09:00)
[2018-02-16] MEDS ORDERED: INSULIN GLARGINE 300 UNITS/3 ML INSULN.PEN. SQ SCH (09:00)
[2018-02-16] MEDS ORDERED: FUROSEMIDE PO SCH (09:00)
[2018-02-16] MEDS ORDERED: NON FORMULARY ITEM (Hydralazine Hcl 1 TAB) PO SCH (09:00)
[2018-02-16] MEDS ORDERED: NON FORMULARY ITEM (Carvedilol (Coreg) 1 TAB) PO SCH (09:00)
[2018-02-16] MEDS: INSULIN LISPRO 300 UNITS/3 ML INSULN.PEN. SQ SCH ×3 (10:59→17:02)
[2018-02-16] MEDS ORDERED: DEXTROSE 50% 25 GM / 50ML DISP.SYRIN. IV ONE ×2 (13:52→15:23)
[2018-02-16 14:09] LABS: BASO # 0.1 x10^3/uL (0.0-0.2); BASO % 1 % (0-3); EOS # 0.2 x10^3/uL (0.0-0.7); EOS % 2 % (0-3); HEMATOCRIT 28.7 % (36.0-47.0); HEMOGLOBIN 9.8 g/dL (12.0-15.5); LYMPH # 3.8 x10^3/uL (1.0-4.8); LYMPH % 41 % (24-48); MEAN CORPUSCULAR HEMOGLOBIN 29 pg (25-35); MEAN CORPUSCULAR HGB CONC 34 g/dL (31-37); MEAN CORPUSCULAR VOLUME 86 fL (79-100); MONO # 0.7 x10^3/uL (0.0-1.1); MONO % 7 % (0-9); NEUT # 4.6 x10^3uL (1.8-7.7); NEUT % 49 % (31-73); PLATELET COUNT 321 x10^3/uL (140-400); RED BLOOD COUNT 3.35 x10^6/uL (3.50-5.40); RED CELL DISTRIBUTION WIDTH 14.6 % (11.5-14.5); WHITE BLOOD COUNT 9.4 x10^3/uL (4.0-11.0)
[2018-02-16 14:19] LABS: ALBUMIN 2.7 g/dL (3.4-5.0); ALBUMIN/GLOBULIN RATIO 0.7 (1.0-1.7); CALCIUM 9.3 mg/dL (8.5-10.1); GFR 35.4; POTASSIUM 3.6 mmol/L (3.5-5.1); TOTAL BILIRUBIN 0.2 mg/dL (0.2-1.0); TOTAL PROTEIN 6.6 g/dL (6.4-8.2)
[2018-02-16] MEDS ORDERED: DEXTROSE 50% 25 GM / 50ML DISP.SYRIN. IV PRN ×2 (15:30→16:00)
--- NOTE | 2018-02-16 16:35 | HP ---
ADMIT DATE: 02/16/2018 HISTORY OF PRESENT ILLNESS: The patient is a 32-year-old -[place] female patient, who yet again coming, complaining of abdominal pain with vomiting. She is known to be noncompliant with her medication. She is using marijuana. She is claiming that only her primary care doctor, Dr. Castro at the [facility] is the only one who can prescribe the medication yet she has never seen him over the last 8 months. She claimed that she cannot get the ride there, although her mom bring her here, she claims that she cannot afford things, but her mom stated the opposite that they have no problem getting the food or the medication. In the case, she was evaluated in the Emergency Room. Her blood pressure on admission was 199/115. Her lab work shows elevated lipase, but this has been persistent and has been at this level for a long time. I did actually CT scan last admission and there is no evidence she has any pancreatic inflammation. In fact when she came to the hospital, her blood sugar was 466 mg/dL. She has dilutional hyponatremia. Her anion gap was only 8. She was given IV fluid and antiemetic. PAST MEDICAL HISTORY: Significant for type 1 diabetes mellitus, diabetic gastroparesis, uncontrolled hypertension, chronic kidney disease. I am not sure that she has really recurrent pancreatitis. It seems that she has persistently elevated lipase with no evidence of any pancreatitis on imaging studies. PAST SURGICAL HISTORY: Significant for section and cholecystectomy. FAMILY HISTORY: Her father is 63 years old alive and has type 2 diabetes. Mother is alive and has sickle cell trait. SOCIAL HISTORY: She is single, on disability. She has 10 months daughter. She smokes half a pack a day and smokes marijuana regularly, but no alcohol. ALLERGIES: She is allergic to KETOROLAC, MORPHINE and ONDANSETRON. ДМИТРИЙ AGUAYO MD DR: EFRAÍN/gloria JOB#: [id number] / [id number]
--- NOTE | 2018-02-16 17:23 | HP ---
ADMIT DATE: 02/15/2018 HISTORY OF PRESENT ILLNESS: The patient is a 32-year-old -[place] female patient, who yet again came with complaint of abdominal pain and recurrent bouts of nausea, vomiting. She was markedly hyperglycemic with a blood sugar of 466. Her blood pressure was extremely high at 199/115. She claims that she is compliant with her medication, but obviously that is not the case given her multiple admissions with hyperglycemia and poorly controlled hypertension. She continues to smoke cigarettes and smoked marijuana, and claims that she has no means of getting her primary care physician whom she has not seen for almost 8 months now. Her serum lipase is persistently high and we have never had any imaging studies that confirmed that she has pancreatitis. Her gallbladder was removed before and she is not on any medication or does not have any other medical problems that should cause pancreatitis and when she comes here, she specifically asks for hydromorphone injection. On arrival to the Emergency Room, she was markedly hypertensive with a systolic pressure of 199/115, markedly hyperglycemic. She has dilutional hyponatremia; however, she was not in diabetic ketoacidosis. Her serum lipase was slightly elevated at 640, which is very similar to multiple previous admissions. I think it only represents recently elevated serum lipase given her abnormal kidney function. She was basically given insulin and IV fluids, antiemetics, and pain medication was admitted for further evaluation and treatment. PAST MEDICAL HISTORY: Significant for type 1 diabetes mellitus, diabetic gastroparesis, uncontrolled hypertension, chronic kidney disease. Recurrent showed that she has recurrent relapsing pancreatitis. PAST SURGICAL HISTORY: Significant for section about the end of last year. She is also status post cholecystectomy. FAMILY HISTORY: Her father is a 53-year-old living, he has type 2 diabetes. Her mother is alive, has sickle cell trait. SOCIAL HISTORY: She is single, on disability, has 10 months daughter. She smokes half a pack a day and smokes marijuana regularly, but denied drinking any alcohol; however, she claims that she has no means of buying her medication or visiting her primary care physician at . ALLERGIES: SHE IS ALLERGIC TO KETOROLAC, MORPHINE, AND ONDANSETRON. MEDICATIONS: She is currently on following medications: She is on dicyclomine 10 mg once a day, albuterol sulfate 2 puffs every 6 hours, hydralazine 25 mg 3 times a day, carvedilol 12.5 mg twice a day, amlodipine 10 mg once a day, gabapentin 100 mg 3 times a day, furosemide 80 mg once a day, Protonix 40 mg once a day, Lantus insulin 10 units at bedtime, NovoLog insulin 10 units before meals. REVIEW OF SYSTEMS: As per history of present illness. PHYSICAL EXAMINATION: GENERAL: On arrival to the Emergency Room, she looked well and was clearly in no apparent respiratory distress. No pallor, jaundice, cyanosis, or thyromegaly. No jugular venous distension. No lower limb edema. VITAL SIGNS: Her heart rate was 91, blood pressure was 235/137, temperature was 98.4, respiratory rate 20, and oxygen saturation was 98%. HEAD, EYES, EARS, NOSE AND THROAT: Showed normocephalic, atraumatic. NECK: Supple. HEART: Showed normal first and second heart sounds with no gallop, rub or murmur. CHEST: Clear to auscultation. No crepitation or rhonchi. ABDOMEN: Distended, soft, nontender. No guarding or rigidity. No organomegaly. Hernial orifice intact. Bowel sounds normal. NEUROLOGIC: She was awake, alert, responding appropriately. Cranial nerves intact. EXTREMITIES: She moves extremities without difficulty. She ambulates without assistance or assistive devices. LABORATORY DATA: Showed a white cell count of 10,700, hemoglobin 10, hematocrit 30, MCV 86, and platelet count of 314,000. Her serum sodium was 131, potassium 4.3, chloride 100, bicarbonate 23, anion gap of 8, BUN 18, creatinine was 2.5, estimated GFR was 27 mL per minute. Her glucose was 455, calcium was 8.9. Total bilirubin, AST, ALT, alkaline phosphatase were normal. Total protein was 6.9, albumin was 2.8 and lipase was 641. Urinalysis showed the urine was straw colored, clear with a pH of 7, specific gravity of 1.020. There was large amount of protein, large amount of glucose. The urine was negative for ketones, trace of blood, negative for nitrite and leukocyte esterase. There are no RBCs, no WBCs and very few bacteria. Urine toxicology screen was positive for cannabinoids. ASSESSMENT AND PLAN: In summary, this is again a 32-year-old -[place] female patient with type 1 diabetes, who yet again came with recurrent bouts of abdominal pain, nausea and vomiting, extreme hypertensive urgency, marked hyperglycemia. She is noncompliant with her medications. She claims that she has no means to buy her medication. Her mother confirmed that she is noncompliant with her food. She continued to smoke cigarette and marijuana. She claims that only prescription from her primary care physician is accepted by insurance; yet she has not visited her primary care physician for almost 8 months. We had a lengthy discussion about all this today and that we actually found out that the hydralazine is only on [employer] [facility] from [facility] and once her blood sugar and blood pressure stabilized, she will be discharged home. I made it clear that she would not get any hydromorphone that she asks specifically. ДМИТРИЙ AGUAYO MD DR: EFRAÍN/gloria JOB#: [id number] / [id number]
[2018-02-16] MEDS ORDERED: INSU100V31 SQ (19:00)
[2018-02-16] MEDS: INSULIN GLARGINE 300 UNITS/3 ML INSULN.PEN. SQ SCH (22:59)
[2018-02-17 06:02] VITALS: BP 154/96
[2018-02-17] MEDS: PANTOPRAZOLE 40 MG TABLET. PO SCH (08:16)
[2018-02-17] MEDS: CARVEDILOL 12.5 MG TABLET PO SCH (08:21)
[2018-02-17] MEDS: INSULIN LISPRO 300 UNITS/3 ML INSULN.PEN. SQ SCH (08:23)
[2018-02-17] MEDS: hydrALAZINE 25 MG TABLET PO SCH (08:34)
[2018-02-17] MEDS: DICYCLOMINE HCL 10 MG CAPSULE PO SCH (08:35)
[2018-02-17] MEDS: POTASSIUM CHLORIDE 20 MEQ TABLET.ER. PO SCH (08:36)
[2018-02-17] MEDS: GABAPENTIN 100 MG CAPSULE. PO SCH (08:37)
[2018-02-17] MEDS: FUROSEMIDE 80 MG TABLET PO SCH (08:37)
[2018-02-17] MEDS: amLODIPine BESYLATE 10 MG TABLET PO SCH (08:38)
[2018-02-17] MEDS: INSULIN GLARGINE 300 UNITS/3 ML INSULN.PEN. SQ SCH (08:43)
[2018-02-17 09:16] LABS: ALBUMIN 2.4 g/dL (3.4-5.0); ALBUMIN/GLOBULIN RATIO 0.6 (1.0-1.7); CALCIUM 8.6 mg/dL (8.5-10.1); CREATININE 2.2 mg/dL (0.6-1.0); GFR 31.7; POTASSIUM 4.4 mmol/L (3.5-5.1); TOTAL BILIRUBIN 0.1 mg/dL (0.2-1.0); TOTAL PROTEIN 6.1 g/dL (6.4-8.2)
[2018-02-17 09:18] VITALS: BP 160/107
[2018-02-17] MEDS: IV NORMAL SALINE 1,000ML 1,000 ML IV SCH (10:25)
--- NOTE | 2018-02-17 10:33 | PN ---
DATE: 02/16/2018 SUBJECTIVE: The patient is sitting slightly propped up in bed, in no apparent distress. She continued to complain of pain requesting hydromorphone, but we made it clear that she is only be getting her fentanyl 50 mcg every 6 hours. We explained to her that hydralazine is available. She does not even need the prescription from her primary care physician, besides she has called in for almost 8 months now. We have made a lot of teaching regarding her diabetic gastroparesis. She claims dicyclomine and Protonix is helpful. She is already on that. My guess is that she probably abuses the marijuana and that is why she comes here with these frequent episodes of nausea and vomiting PHYSICAL EXAMINATION: GENERAL: Anyhow when I saw her this morning, she looked well and was clearly in no apparent respiratory distress, pale, but no jaundice, cyanosis, or thyromegaly. No jugular venous distention. No lower limb edema. VITAL SIGNS: Her heart rate was 62, blood pressure 150/95, temperature was 98.3, respiratory rate was 18, and oxygen saturation was 100%. HEAD, EYES, EARS, NOSE, AND THROAT: Showed normocephalic, atraumatic. NECK: Supple. HEART: Showed normal first and second heart sounds. No gallop, rub, or murmur. CHEST: Clear to auscultation. No crepitation or rhonchi. ABDOMEN: Distended, soft, nontender. No guarding or rigidity. No organomegaly. All hernial orifice intact. Bowel sounds normal. NEUROLOGIC: She is awake, alert, responding appropriately. Cranial nerves intact. She moves extremities without difficulty. Her intake was 2600, no output was recorded. LABORATORY DATA: Her lab work this morning showed that her serum sodium was 133, potassium 4.9, chloride 102, bicarbonate 21, anion gap of 10, BUN 15, creatinine 2, estimated GFR was 35 mL per minute. Her glucose was 300 and calcium was 9. His white cell count was 9400, hemoglobin 9.8, hematocrit 28.7, MCV 86, and platelet count 321,000. PLAN: To continue with current antihypertensive medication. Discontinue scheduled insulin; however, continue with the Lantus. ДМИТРИЙ AGUAYO MD DR: EFRAÍN/gloria JOB#: [id number] / [id number]
--- NOTE | 2018-02-17 19:15 | DS ---
DATE OF DISCHARGE: 02/17/2018 HOSPITAL COURSE: The patient is a 32-year-old -[place] female patient, who yet again came complaining of recurrent bouts of nausea, vomiting, blood sugar was extremely high with hypertensive urgency, although she claims that she is compliant. Her mother stated that she is not compliant with food. She is not taking her medication , she cannot afford them and only her primary care physician can prescribe them for her insurance to pay for it. Yet, she has not seen her primary care physician for almost 8 months, it turned out that the hydralazine is in the $4 list of the [employer], it is much cheaper to buy a month's supply hydralazine than a pack of cigarettes that she smokes. I have had a lengthy discussion with her and that she has to take responsibility for herself and take her medication regularly. I will give her a prescription for hydralazine for 3-month supply that will cost only $10 with refills that should cover the whole year. Again, I insisted that she should go and see her primary care physician for her insurance to pay all her other medication. PHYSICAL EXAMINATION: GENERAL: When I examined her this morning, she was resting slightly propped up in bed, in no apparent respiratory distress. She was sleepy, but arousable. On questioning her, denied any complaint. When I examined her, she looked pale, but no jaundice or cyanosis. No lymphadenopathy, no thyromegaly. No jugular venous distention. No limb edema. VITAL SIGNS: Her heart rate was 79, blood pressure was 125/80, temperature was 98.6, respiratory rate was 12, and oxygen saturation was 98% on room air. HEAD, EYES, EARS, NOSE AND THROAT: Normocephalic, atraumatic. NECK: Supple. HEART: Showed normal first and second sounds. No gallop, rub or murmur. CHEST: Clear to auscultation. No crepitation or rhonchi. ABDOMEN: Distended, soft, and nontender. No guarding or rigidity. No organomegaly. All hernial orifices intact. Bowel sounds normal. NEUROLOGIC: She was sleepy, but arousable. All cranial nerves intact. EXTREMITIES: She moves her extremities without difficulty. She ambulates without assistance or assistive devices. Her intake was 2636, no output was recorded. LABORATORY DATA: Her lab work this morning showed that her serum sodium was 137, potassium 4.4, chloride 106, bicarbonate 24, anion gap of 7, BUN 12, creatinine 2.2, estimated GFR was 32 mL per minute. Her glucose 176, calcium was 8.6. Total protein was 6.1, albumin was 2.4. DISCHARGE MEDICATIONS: She was discharged home to continue on her Lantus insulin 10 units at bedtime and Humalog insulin before meals as insulin sliding scale. She is on potassium 20 mEq twice a day, clonidine transdermal patch weekly, hydralazine 25 mg 3 times a day, furosemide 80 mg daily, amlodipine 10 mg once a day, gabapentin 100 mg 3 times a day, dicyclomine 10 mg 3 times a day, carvedilol 12.5 mg twice a day. She is on Protonix 40 mg daily, albuterol sulfate 2.5 mg every 6 hours as needed. FINAL DISCHARGE DIAGNOSES: Hypertensive urgency. Her blood pressure is much improved, poorly controlled hyperglycemia without evidence of diabetic ketoacidosis, resolved. Her blood sugar is much better controlled as acute on chronic kidney injury. Her creatinine came down from 2.5-2.2, chronic kidney disease with a baseline creatinine of around 2 mg/dL, diabetic gastroparesis, type 1 diabetes mellitus, persistently elevated lipase without any ideological evidence of pancreatitis. ДМИТРИЙ AGUAYO MD DR: EFRAÍN/gloria JOB#: [id number] / [id number]
== END 2018-02-17 11:00 | disposition home or self-care (01) | DRG 637 ==
LOC: ER 13:34 → 1 SOUTH 19:00
PROVIDERS: ADMIT Internal Medicine; ATTEND Internal Medicine
DX: E10.65 Type 1 diabetes mellitus with hyperglycemia (principal); N17.0 Acute kidney failure with tubular necrosis; E87.1 Hypo-osmolality and hyponatremia; K86.1 Other chronic pancreatitis; I16.0 Hypertensive urgency; E10.22 Type 1 diabetes mellitus with diabetic chronic kidney disease; E10.43 Type 1 diabetes mellitus with diabetic autonomic (poly)neuropathy; F10.10 Alcohol abuse, uncomplicated; F12.90 Cannabis use, unspecified, uncomplicated; F17.210 Nicotine dependence, cigarettes, uncomplicated; I12.9 Hypertensive chronic kidney disease with stage 1 through stage 4 chronic kidney disease, or unspecified chronic kidney disease; K21.9 Gastro-esophageal reflux disease without esophagitis; K31.84 Gastroparesis; N18.9 Chronic kidney disease, unspecified; Z83.2 Family history of diseases of the blood and blood-forming organs and certain disorders involving the immune mechanism; Z90.49 Acquired absence of other specified parts of digestive tract; Z91.14 Patient's other noncompliance with medication regimen; Z91.19 Patient's noncompliance with other medical treatment and regimen; Z83.3 Family history of diabetes mellitus; Z88.8 Allergy status to other drugs, medicaments and biological substances; Z79.899 Other long term (current) drug therapy; Z79.4 Long term (current) use of insulin
CPT/HCPCS: 36415; 80048; 80053; 80307; 81001; 82947; 83690; 85025; 96361; 96372; 96374; 96375; 96376; J1170; J1815; J2550; J3010; J3490; 99285-25; G0479; J7030